=== PATIENT | female | born 1940 | race Caucasian/White ===

== ENCOUNTER 2018-04-24 14:55 | Outpatient (CLI) | payer MEDICARE, OTHER | END 2018-04-24 14:56 | disposition critical access hospital (66) | LOC: EMS 14:55 | PROVIDERS: ATTEND Surgery | DX: M25.552 Pain in left hip (principal); R07.81 Pleurodynia; W01.0XXA Fall on same level from slipping, tripping and stumbling without subsequent striking against object, initial encounter; Y93.01 Activity, walking, marching and hiking; Y92.003 Bedroom of unspecified non-institutional (private) residence as the place of occurrence of the external cause | CPT/HCPCS: A0425; A0429 ==

== ENCOUNTER 2018-04-24 15:12 | Inpatient (IN) | payer MEDICARE, OTHER ==
[2018-04-24] MEDS ORDERED: MORPHINE 2 MG/ML CARPUJECT IVP STA (15:32)
--- NOTE | 2018-04-24 15:33 | ED Physician Documentation ---
PD HPI LOWER EXT INJURY - Stated complaint Stated Complaint: GLF - History obtained from History obtained from: Patient - History of Present Illness PD HPI LOW EXT INJURY LOCATION: Left (78-year-old woman with Paroxysmal atrial fibrillation on Eliquis had a trip and fall while she was leaning over to get her vacuum pipe cleaner robot which had gone under the bed. She landed on her left hip and chest. She is 100% sure she did not hit her head. She is unable to walk or bear weight due to hip pain.) Review of Systems Ten Systems: 10 systems reviewed and negative Constitutional: reports: Reviewed and negative Eyes: reports: Reviewed and negative Ears: reports: Reviewed and negative Nose: reports: Reviewed and negative Throat: reports: Reviewed and negative Cardiac: reports: Reviewed and negative PD PAST MEDICAL HISTORY - Past Medical History Cardiovascular: Hypertension, Atrial fibrillation, Arrhythmia Respiratory: COPD, Emphysema, Shortness of breath Endocrine/Autoimmune: None GI: Hiatal hernia, Diverticulitis, Cholelithiasis : Incontinence HEENT: None Derm: Eczema - Past Surgical History General: Cholecystectomy, Appendectomy, Hiatal hernia repair, 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: Other HEENT: Tonsil/Adenoidectomy Derm: Skin cancer surgery - Allergies Allergies/Adverse Reactions: Allergies Allergy/AdvReac Type Severity Reaction Status Date / Time diltiazem Allergy Unknown Unknown Verified 04/24/18 15:22 - Social History Smoking Status: Current some day smoker Does the pt have substance abuse?: No - Family History Family history: reports: Non contributory PD ED PE NORMAL - Vitals Vital signs reviewed: Yes - General General: Alert and oriented X 3, No acute distress - HEENT HEENT: PERRL, EOMI - Neck Neck: Supple, no meningeal sign, No bony TTP - Cardiac Cardiac: RRR, No murmur - Respiratory Respiratory: No respiratory distress, Clear bilaterally - Abdomen Abdomen: Normal bowel sounds, Soft, Non tender - Back Back: No CVA TTP, No spinal TTP - Extremities Extremities: Other (Mild lateral TTP L hip and severe pain with int rotation) - Neuro Neuro: Alert and oriented X 3, Normal speech - Psych Psych: Normal mood, Normal affect Results - Vitals Vitals: Vital Signs - 24 hr 04/24/18 04/24/18 15:22 19:02 Temperature 37.1 C Heart Rate 82 127 H Respiratory 15 22 Rate Blood Pressure 188/109 H 138/70 H O2 Saturation 94 90 L Oxygen O2 Source Nasal cannula Oxygen Flow Rate 2 - EKG (time done) 1537 Rate: Rate (enter#) (86) Rhythm: NSR [place]: Normal Intervals: Prolonged CA QRS: Normal Ischemia: Normal ST segments Computer interpretation: Agree with computer - Labs Labs: Laboratory Tests 04/24/18 04/24/18 04/24/18 15:55 16:00 16:00 WBC 14.3 H RBC 4.30 Hgb 13.9 Hct 42.2 MCV 98.2 MCH 32.4 H MCHC 33.0 RDW 12.2 Plt Count 282 MPV 6.7 L Neut # (Auto) 12.2 H Lymph # (Auto) 1.1 L [place] # (Auto) 0.7 Eos # (Auto) 0.1 Baso # (Auto) 0.2 H Absolute Nucleated RBC 0.01 Nucleated RBC % 0.1 PT 12.3 INR 1.1 Sodium 133 L Potassium 4.0 Chloride 96 L Carbon Dioxide 29 Anion Gap 8.0 BUN 12 Creatinine 0.6 Estimated GFR (MDRD) 96 Glucose 97 Calcium 9.2 Total Bilirubin 0.5 AST 28 ALT 19 Alkaline Phosphatase 71 Total Protein 7.7 Albumin 4.7 Globulin 3.0 Albumin/Globulin Ratio 1.6 Lipase 26 Blood Type Antibody Screen 04/24/18 16:00 WBC RBC Hgb Hct MCV MCH MCHC RDW Plt Count MPV Neut # (Auto) Lymph # (Auto) [place] # (Auto) Eos # (Auto) Baso # (Auto) Absolute Nucleated RBC Nucleated RBC % PT INR Sodium Potassium Chloride Carbon Dioxide Anion Gap BUN Creatinine Estimated GFR (MDRD) Glucose Calcium Total Bilirubin AST ALT Alkaline Phosphatase Total Protein Albumin Globulin Albumin/Globulin Ratio Lipase Blood Type O NEGATIVE Antibody Screen NEGATIVE - Rads (name of study) L ribs and chest Radiology: EMP read contemporaneously (NAD) L hip XR Radiology: EMP read contemporaneously L Hip CT Radiology: EMP read contemporaneously (Nondisplaced femoral neck fracture) PD MEDICAL DECISION MAKING - ED course ED course: 78-year-old woman status post ground level fall on the left hip clinically with a left hip fracture. Not present on initial x-ray but followed with CT which was confirmatory. Spoke with Dr. Triplett at 6:30 PM who will defer to medicine for admission. They will be delayed to operative fixation given that she is anticoagulated. It is shift change to the hospitalist and I will call them after [address] for admission. Spoke with Dr Watson for admit at 7:27pm Departure - Departure Disposition: 66 [facility] DC/Xfer Clinical Impression: Adequate anticoagulation on anticoagulant therapy Fracture of femoral neck, left Qualifiers: Encounter type: initial encounter Fracture type: closed Qualified Code(s): S72.002A - Fracture of unspecified part of neck of left femur, initial encounter for closed fracture Condition: Good Record reviewed to determine appropriate education?: Yes
[2018-04-24] MEDS ORDERED: ONDANSETRON 4 MG/2 ML VIAL IVP STA (15:44)
[2018-04-24 16:12] LABS: BASOPHILS # (AUTO) 0.2 10^3/uL (0.0-0.1); BASOPHILS % (AUTO) 1.3 %; EOSINOPHILS # (AUTO) 0.1 10^3/uL (0.0-0.7); EOSINOPHILS % (AUTO) 0.9 %; HGB - HEMOGLOBIN 13.9 g/dL (12.0-16.0); LYMPHOCYTES # (AUTO) 1.1 10^3/uL (1.5-3.5); LYMPHOCYTES % (AUTO) 7.6 %; MEAN CORPUSCULAR HEMOGLOBIN 32.4 pg (27.0-31.0); MEAN CORPUSCULAR VOLUME 98.2 fL (81.0-99.0); MEAN PLATELET VOLUME 6.7 fL (7.9-10.8); MONOCYTES # (AUTO) 0.7 10^3/uL (0.0-1.0); MONOCYTES % (AUTO) 4.7 %; NEUTROPHILS # (AUTO) 12.2 10^3/uL (1.5-6.6); NEUTROPHILS % (AUTO) 85.5 %; PLT - PLATELET COUNT 282 10^3/uL (130-450); RED CELL DISTRIBUTION WIDTH 12.2 % (12.0-15.0); WHITE BLOOD COUNT 14.3 x10^3/uL (4.8-10.8)
[2018-04-24 16:18] LABS: INR 1.1 (0.8-1.2); PT - PROTHROMBIN TIME 12.3 secs (9.9-12.6)
[2018-04-24 16:26] LABS: ALBUMIN 4.7 g/dL (3.2-5.5); ALBUMIN/GLOBULIN RATIO 1.6 (1.0-2.2); BILIRUBIN,TOTAL 0.5 mg/dL (0.2-1.0); CALCIUM 9.2 mg/dL (8.5-10.3); CREATININE 0.6 mg/dL (0.4-1.0); TOTAL PROTEIN 7.7 g/dL (6.7-8.2)
--- NOTE | 2018-04-24 17:12 | XRAY Report ---
Reason: fall, hip and rib inj Procedure Date: 04/24/2018 Accession Number: [id number] / [id number] Procedure: XR - Hip w/Pelvis 2-3V LT CPT Code: FULL RESULT: EXAM: LEFT HIP AND PELVIS RADIOGRAPHY EXAM DATE: 04/24/2018 04:58 PM. HISTORY: Fall. Left hip pain. COMPARISONS: None. TECHNIQUE: 1 view of the pelvis and 1 view of the hip. FINDINGS: Bones: No acute fracture is identified. Degenerative spurring. Joints: Normal alignment. Joint space narrowing. Degenerative changes of the lower lumbar spine and right hip joint. No dislocation. Soft Tissues: Vascular calcifications. Surgical sutures project over the lower abdomen. IMPRESSION: 1. No acute osseous abnormalities. If there is a high clinical suspicion then further detail with MRI/CT recommended. 2. Mild degenerative changes of the left hip joint. No dislocation. RADIA
--- NOTE | 2018-04-24 17:15 | XRAY Report ---
Reason: fall, hip and rib inj Procedure Date: 04/24/2018 Accession Number: [id number] / [id number] Procedure: XR - Ribs w/PA Chest LT CPT Code: FULL RESULT: EXAM: LEFT RIB RADIOGRAPHY EXAM DATE: 04/24/2018 04:58 PM. CLINICAL HISTORY: Fall. Left-sided rib pain. COMPARISON: 06/05/2013. TECHNIQUE: 1 view of the chest and 2 views of the ribs. FINDINGS: Bones: No acute fracture or bony lesion. Lungs: No pneumothorax. Lungs are hyperexpanded. No pleural effusions. No consolidation. Interstitium is prominent. Mediastinum: Heart size is normal. Aorta is tortuous. Aortic atherosclerosis. Other: Thoracic scoliosis. Status post cholecystectomy. IMPRESSION: 1. No acute fracture or bony lesion. 2. No pneumothorax. No pleural effusions. RADIA
--- NOTE | 2018-04-24 18:13 | CT Report ---
Reason: hip pain, suspect frx Procedure Date: 04/24/2018 Accession Number: [id number] / [id number] Procedure: CT - Lower Extremity Left W/O CPT Code: FULL RESULT: EXAM: LEFT LOWER EXTREMITY CT WITHOUT CONTRAST EXAM DATE: 04/24/2018 05:37 PM. CLINICAL HISTORY: Hip pain, suspect fracture. COMPARISON: Radiographs 04/24/2018. TECHNIQUE: Thin-section axial images were acquired of the lower extremity from hip to distal femoral diaphysis without contrast. Post-processing: Coronal and sagittal reformats. Other: None. In accordance with CT protocol optimization, one or more of the following dose reduction techniques were utilized for this exam: automated exposure control, adjustment of mA and/or KV based on patient size, or use of iterative reconstructive technique. FINDINGS: Bones: Osteopenia. Mildly impacted nondisplaced fracture extends transversely through the subcapital region of the femoral neck. Mild impaction along the anterior and lateral cortex. No other discrete displaced fracture. Evaluation for nondisplaced fracture is limited on CT. Joints: Minimal degenerative change at the left hip. Small joint effusion. Mild degenerative changes partially visualized at the left sacroiliac joint. Minimal degenerative disk and facet changes partially visualized lower lumbar spine. Musculature: Mild fatty atrophy in the gluteal muscles. Evaluation for muscle edema limited on CT. Other: Mild atherosclerosis in the abdominal aorta and iliac arteries. Multiple descending colon and sigmoid colon diverticula. IMPRESSION: 1. Mildly impacted nondisplaced fracture left femoral neck. 2. Small hip joint effusion. RADIA
[2018-04-24] MEDS ORDERED: ACETAMINOPHEN 325 MG TABLET PO STA (18:46)
[2018-04-24] MEDS ORDERED: ZOLPIDEM 5 MG TABLET PO PRN (20:20)
[2018-04-24] MEDS ORDERED: LABETALOL 100 MG TABLET PO SCH (21:00)
[2018-04-24] MEDS: MORPHINE 2 MG/ML CARPUJECT IVP PRN ×2 (21:02→22:48)
[2018-04-24 22:33] LABS: GLUCOSE, URINE (UA) NEGATIVE (NEGATIVE); KETONES,URINE (UA) TRACE mg/dL (NEGATIVE); LEUKOCYTE ESTERASE, URINE TRACE (NEGATIVE); NITRITE,URINE NEGATIVE (NEGATIVE); OCCULT BLOOD,URINE LARGE (NEGATIVE); PH,URINE 5.5 PH (5.0-7.5); PROTEIN,URINE NEGATIVE (NEGATIVE); UROBILINOGEN,URINE 0.2 (NORMAL) E.U./dL (NORMAL)
[2018-04-24 22:38] LABS: BILIRUBIN,URINE NEGATIVE (NEGATIVE); ICTOTEST,URINE NEGATIVE
[2018-04-24 22:44] LABS: BACTERIA,URINE Rare /HPF (None Seen); RBC,URINE TNTC /HPF (0-5); SQUAMOUS EPITHELIAL CELL,UR RARE Squamous (<= Few); WBC CLUMPS,URINE PRESENT
[2018-04-24 22:45] LABS: CLARITY,URINE CLEAR (CLEAR)
--- NOTE | 2018-04-25 00:16 | HISTORY & PHYSICAL EXAMINATION ---
DATE OF SERVICE: 04/24/2018 Physician: Serenity Watson MD CHIEF COMPLAINT: Fall and hip pain. HISTORY OF PRESENT ILLNESS: Patient is a pleasant 78-year-old white female with past medical history of oxygen-dependent COPD, paroxysmal atrial fibrillation, on Eliquis anticoagulation, and hypertension. 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 Subsequently, she tried to get it out, and while she bent down she lost her balance and fell on her left side. Subsequently, she developed intense left- sided pelvis and hip pain plus left-sided rib pain as well. She had difficulty ambulating. Therefore, she presented to [facility] ER. In the ER, she underwent imaging studies. She was found with mildly displaced left femoral neck fracture on lower extremity CT scan. In addition, she had a chest x-ray, which did not show infiltrate. It showed no rib fracture, either, but on physical exam the patient appeared with left-sided chest wall contusion. Laboratories showed elevated white blood cell count 14.3, normal platelet count, normal hemoglobin, unremarkable coagulation studies, sodium 133, potassium 4, unremarkable renal functions, and normal liver function tests. Vital signs showed temperature of 37.1, heart rate between 80 and 120, blood pressure between 138/70 and 188/109. Oxygen saturation was 85% on room air and 94% on 2 L nasal cannula. Monitor showed regular rhythm. EKG is not yet available. Regarding cardiac history, the patient reports having paroxysmal atrial fibrillation diagnosed a few months ago. She saw a gre instructor in [place] and was told to have an accessory pathway. Ablation was offered, but the patient declined. She does not have history of coronary artery disease, remembers undergoing echocardiogram, and she thinks that she does not have a valve problem or congestive heart failure. The patient offered no angina-like symptoms. She denied chest pain or change in her exercise tolerance. She is always short of breath, having history of COPD, but did not notice recent change in her respiratory status. Did not have lower extremity swelling or any additional change in her usual health. PAST MEDICAL HISTORY 1. Paroxysmal atrial fibrillation, on Eliquis. 2. COPD/oxygen dependent. 3. Hypertension. OUTPATIENT MEDICATIONS: Not yet reconciled. SOCIAL HISTORY: The patient used to smoke cigarettes. She quit 3 years ago. She is functional with instrumental activities of daily living. FAMILY HISTORY: Positive for coronary artery disease, both in the mother and in the father. They in their early 60s due to heart disease. CODE STATUS: FULL CODE. REVIEW OF SYSTEMS: Please see pertinent positives and pertinent negatives listed above at history of present illness. The patient did not offer any additional complaints on the 12-point review. In particular, she denied fever, cough, sputum production, nausea, vomiting, abdominal pain, or dysuria. PHYSICAL EXAMINATION VITAL SIGNS: See listed above at history of present illness. GENERAL: The patient is a well-developed, elderly female who was comfortable, not in distress. CARDIOVASCULAR: S1, S2. Regular tachycardia. I could not hear a pathologic murmur. RESPIRATORY: Good air entry throughout without wheezes or crackles. No increased work of breathing. ABDOMEN: Soft, benign, nontender. Normal bowel tones. LYMPHATIC: Swelling of the left lower extremity. No lymphedema. MUSCULOSKELETAL: Left lower extremity swelling and tenderness consistent with hip fracture. No other injury. SKIN: No jaundice. No rash. NEUROLOGIC: Alert, oriented, nonfocal. PSYCHIATRIC: Cooperative. ASSESSMENT AND PLAN/ACTIVE ISSUES/DIAGNOSES 1. Mechanical fall. 2. Mildly displaced left femoral neck fracture secondary to fall. 3. Left-sided chest wall contusion without rib fracture. 4. Therapeutic anticoagulation, on Eliquis. Will need 24 hours prior to going for surgery until anticoagulant effect wears off/clears. 5. Paroxysmal atrial fibrillation. No history of coronary artery disease. 6. Oxygen-dependent chronic obstructive pulmonary disease. Respiratory status at baseline. 7. Leukocytosis, could be reactive. Chest x-ray showed no pneumonia. Liver function tests are unremarkable. Urinalysis pending. The patient does not have any focal complaint for an infectious cause. 8. Regarding presurgical evaluation and clearance, the patient does not report angina-like symptoms. She is not in decompensated heart failure, does not appear to have acute coronary syndrome, either. Therefore, there is no contraindication to proceed with the surgery. I am awaiting EKG, which I will check, and that might change this assessment, but from what I can see at this point, the patient is clinically stable. The anticoagulation will need to be held during the surgery, and the Eliquis will need to clear from her system prior to proceeding with hip arthroplasty. During the perioperative period, we will recommend a small dose of beta-garima to use for control of hemodynamics to avoid decompensation with atrial fibrillation or to avoid perioperative cardiac ischemia. PLAN AND ORDERS 1. Patient is getting admitted as inpatient. Orthopedic consultation was requested. Patient will be seen by Dr. Triplett. 2. I ordered small dose of labetalol orally. Further rate control or cardiac medication orders will depend on the clinical course. 3. Will hold Eliquis. DVT prophylaxis with RACHEL hose and SCDs. We will recommend restarting anticoagulation following surgery when the postoperative bleeding risk is acceptable, and that will need to be discussed with the surgeon. 4. Regarding COPD, we will continue supplemental oxygen, ordered DuoNebs, and if needed, will step up with inhaled corticosteroid. There is no need for systemic steroid. 5. GI prophylaxis with Protonix. 6. Pain control. 7. FULL CODE. Time spent in the care of this patient was 55 minutes. Attestation: I certify that the reasonable expectation is that the patient remains hospitalized for at least 48 hrs, but gets discharged or transferred to another facility within 96 hrs. TD: 04/24/2018 21:17 LONG
[2018-04-25] MEDS: MORPHINE 2 MG/ML CARPUJECT IVP PRN ×4 (04:11→23:54)
[2018-04-25] MEDS: SODIUM CHLORIDE FLUSH 0.9% 10 ML SYRINGE IVP SCH ×4 (04:11→23:55)
[2018-04-25] MEDS ORDERED: KETOROLAC 15 MG/ML VIAL IM PRN (05:28)
[2018-04-25] MEDS: PANTOPRAZOLE 40 MG TABLET PO SCH (06:15)
[2018-04-25] MEDS: cefTRIAXone 1 GM in SODIUM CHLORIDE 0.9% MINIBAG 100 ML IV SCH (06:15)
[2018-04-25] MEDS: HYDROcod/ACETAM 5/325 MG TABLET PO PRN ×2 (06:28→16:23)
[2018-04-25] MEDS ORDERED: IPRATROPIUM/ALBUTEROL 3 ML NEB INH SCH (07:00)
--- NOTE | 2018-04-25 08:44 | PROVIDER PROGRESS NOTE ---
Objective - Vital Signs/Intake & Output Vital Signs: Vital Signs x48h Temp Pulse Pulse Resp BP BP Pulse Ox 04/25/18 08:07 98 18 04/25/18 08:00 37.5 C 109 H 20 93/47 L 95 04/25/18 06:34 129 H 26 H 93 04/25/18 04:19 38.2 C H 123 H 28 H 168/97 H 95 04/25/18 04:16 132 H 22 89 L Intake & Output: Intake & Output 04/22/18 04/23/18 04/24/18 04/25/18 23:59 23:59 23:59 23:59 Intake Total 500 100 Output Total 400 150 Balance 100 -50 - Lab Results Fish Bones: 04/24/18 15:55 04/24/18 16:00 Other Labs: Lab Results x24hrs 04/24/18 04/24/18 04/24/18 Range/Units Unknown 16:00 16:00 WBC (4.8-10.8) x10^3/uL RBC (4.20-5.40) 10^6/uL Hgb (12.0-16.0) g/dL Hct (37.0-47.0) % MCV (81.0-99.0) fL MCH (27.0-31.0) pg MCHC (32.0-36.0) g/dL RDW (12.0-15.0) % Plt Count (130-450) 10^3/uL MPV (7.9-10.8) fL Neut # (Auto) (1.5-6.6) 10^3/uL Lymph # (Auto) (1.5-3.5) 10^3/uL [place] # (Auto) (0.0-1.0) 10^3/uL Eos # (Auto) (0.0-0.7) 10^3/uL Baso # (Auto) (0.0-0.1) 10^3/uL Absolute Nucleated RBC x10^3/uL Nucleated RBC % /100WBC PT (9.9-12.6) secs INR (0.8-1.2) Sodium 133 L (135-145) mmol/L Potassium 4.0 (3.5-5.0) mmol/L Chloride 96 L (101-111) mmol/L Carbon Dioxide 29 (21-32) mmol/L Anion Gap 8.0 (6-13) BUN 12 (6-20) mg/dL Creatinine 0.6 (0.4-1.0) mg/dL Estimated GFR (MDRD) 96 (>89) Glucose 97 (70-100) mg/dL Calcium 9.2 (8.5-10.3) mg/dL Total Bilirubin 0.5 (0.2-1.0) mg/dL AST 28 (10-42) IU/L ALT 19 (10-60) IU/L Alkaline Phosphatase 71 (42-121) IU/L Total Protein 7.7 (6.7-8.2) g/dL Albumin 4.7 (3.2-5.5) g/dL Globulin 3.0 (2.1-4.2) g/dL Albumin/Globulin Ratio 1.6 (1.0-2.2) Lipase 26 (22-51) U/L Urine Color YELLOW Urine Clarity CLEAR (CLEAR) Urine pH 5.5 (5.0-7.5) PH Ur Specific [place] >=1.030 H (1.002-1.030) Urine Protein NEGATIVE (NEGATIVE) mg/dL Urine Glucose (UA) NEGATIVE (NEGATIVE) mg/dL Urine Ketones TRACE (NEGATIVE) mg/dL Urine Occult Blood LARGE H (NEGATIVE) Urine Nitrite NEGATIVE (NEGATIVE) Urine Bilirubin NEGATIVE (NEGATIVE) Urine Urobilinogen 0.2 (NORMAL) (NORMAL) E.U./dL Ur Leukocyte Esterase TRACE H (NEGATIVE) Urine RBC TNTC H (0-5) /HPF Urine WBC 6-10 H (0-5) /HPF Urine WBC Clumps PRESENT Ur Squamous Epith Cells RARE Squamous (<= Few) Urine Bacteria Rare (None Seen) /HPF Urine Culture Comments INDICATED Blood Type O NEGATIVE Antibody Screen NEGATIVE 04/24/18 04/24/18 Range/Units 16:00 15:55 WBC 14.3 H (4.8-10.8) x10^3/uL RBC 4.30 (4.20-5.40) 10^6/uL Hgb 13.9 (12.0-16.0) g/dL Hct 42.2 (37.0-47.0) % MCV 98.2 (81.0-99.0) fL MCH 32.4 H (27.0-31.0) pg MCHC 33.0 (32.0-36.0) g/dL RDW 12.2 (12.0-15.0) % Plt Count 282 (130-450) 10^3/uL MPV 6.7 L (7.9-10.8) fL Neut # (Auto) 12.2 H (1.5-6.6) 10^3/uL Lymph # (Auto) 1.1 L (1.5-3.5) 10^3/uL [place] # (Auto) 0.7 (0.0-1.0) 10^3/uL Eos # (Auto) 0.1 (0.0-0.7) 10^3/uL Baso # (Auto) 0.2 H (0.0-0.1) 10^3/uL Absolute Nucleated RBC 0.01 x10^3/uL Nucleated RBC % 0.1 /100WBC PT 12.3 (9.9-12.6) secs INR 1.1 (0.8-1.2) Sodium (135-145) mmol/L Potassium (3.5-5.0) mmol/L Chloride (101-111) mmol/L Carbon Dioxide (21-32) mmol/L Anion Gap (6-13) BUN (6-20) mg/dL Creatinine (0.4-1.0) mg/dL Estimated GFR (MDRD) (>89) Glucose (70-100) mg/dL Calcium (8.5-10.3) mg/dL Total Bilirubin (0.2-1.0) mg/dL AST (10-42) IU/L ALT (10-60) IU/L Alkaline Phosphatase (42-121) IU/L Total Protein (6.7-8.2) g/dL Albumin (3.2-5.5) g/dL Globulin (2.1-4.2) g/dL Albumin/Globulin Ratio (1.0-2.2) Lipase (22-51) U/L Urine Color Urine Clarity (CLEAR) Urine pH (5.0-7.5) PH Ur Specific [place] (1.002-1.030) Urine Protein (NEGATIVE) mg/dL Urine Glucose (UA) (NEGATIVE) mg/dL Urine Ketones (NEGATIVE) mg/dL Urine Occult Blood (NEGATIVE) Urine Nitrite (NEGATIVE) Urine Bilirubin (NEGATIVE) Urine Urobilinogen (NORMAL) E.U./dL Ur Leukocyte Esterase (NEGATIVE) Urine RBC (0-5) /HPF Urine WBC (0-5) /HPF Urine WBC Clumps Ur Squamous Epith Cells (<= Few) Urine Bacteria (None Seen) /HPF Urine Culture Comments Blood Type Antibody Screen Assessment/Plan - Problem List (1) Fracture of femoral neck, left Impression: Consult received. Patient will be seen and examined this AM. Will hold surgery secondary to eliquis. Likely mini open hip pinning tomorrow pending eval and med status. Qualifiers: Encounter type: initial encounter Fracture type: closed Qualified Code(s): S72.002A - Fracture of unspecified part of neck of left femur, initial encounter for closed fracture
--- NOTE | 2018-04-25 08:58 | PROVIDER PROGRESS NOTE ---
Subjective - Prog Note Date Prog Note Date: 04/25/18 Prog Note Time: 08:58 - Subjective Pt reports feeling: No change Subjective: Liz states that her pain is somewhat controlled and becomes easily nauseated. She denies a new cough, increased shortness of breath, a new rash, or chest pain or pressure. She has several family members visiting. I have given her an informational card summarizing her stay and explained the course of events and her medication change based on her preliminary echo. Current Medications - Current Medications Current Medications: Active Medications Acetaminophen (Tylenol) 650 mg PO Q4HR PRN PRN Reason: Pain 1 to 4 Hydrocodone Bitart/Acetaminophen ([place] 5/325) 1 tab PO Q4HR PRN PRN Reason: Pain 5 to 7 Last Admin: 04/25/18 06:28 Dose: 1 tab Albuterol () 2.5 mg INH RTQ4H PRN PRN Reason: Wheezing Budesonide (Pulmicort) 0.5 mg INH RTBID [facility] Formoterol Fumarate (Perforomist) 20 mcg INH RTBID [facility] Ceftriaxone Sodium 1 gm/ (Sodium Chloride) 100 mls @ 200 mls/hr IV DAILY@0600 [facility] Last Infusion: 04/25/18 07:11 Dose: Infused Sodium Chloride (Normal Saline 0.9%) 1,000 mls @ 83.333 mls/hr IV .Q12H [facility] Last Admin: 04/25/18 10:29 Dose: 83.333 mls/hr Magnesium Sulfate (Magnesium Sulfate) 2 gm in 50 mls @ 50 mls/hr IV ONCE ONE Stop: 04/25/18 14:56 Ketorolac Tromethamine (Toradol Inj (15mg)) 15 mg IM Q6HR PRN PRN Reason: Mild Pain Stop: 04/30/18 05:37 Metoprolol Succinate (Toprol Xl) 25 mg PO BID [facility] Morphine Sulfate (Morphine (Carpuject)) 2 mg IVP Q2HR PRN PRN Reason: Pain 8 to 10 Last Admin: 04/25/18 10:49 Dose: 2 mg Ondansetron HCl (Zofran Inj) 4 mg IVP Q6HR PRN PRN Reason: Nausea / Vomiting Last Admin: 04/25/18 10:49 Dose: 4 mg Pantoprazole Sodium (Protonix) 40 mg PO QDAC [facility] Last Admin: 04/25/18 06:15 Dose: 40 mg Polyethylene Glycol (Miralax) 17 gm PO DAILY [facility] Last Admin: 04/25/18 10:29 Dose: Not Given Sodium Chloride (Normal Saline Flush 0.9%) 10 ml IVP PRN PRN PRN Reason: NEEDED PER PROVIDER ORDERS Sodium Chloride (Normal Saline Flush 0.9%) 10 ml IVP 0100,0900,1700 [facility] Last Admin: 04/25/18 06:14 Dose: 10 ml Zolpidem Tartrate (Ambien) 5 mg PO QPM PRN PRN Reason: Insomnia Albuterol Sulfate [Proair Hfa Inhaler] 2 puffs INH Q4H PRN 04/25/18 Apixaban [Eliquis] 2.5 mg PO BID 04/25/18 Fluticasone/Salmeterol [Advair 250-50 Diskus] 1 puffs INH BID 04/25/18 Lisinopril 20 mg PO DAILY 04/25/18 Metoprolol Tartrate [Lopressor] 50 mg PO BID 04/25/18 Objective - Vital Signs/Intake & Output Reviewed Vital Signs: Yes Vital Signs: Vital Signs x48h Temp Pulse Pulse Resp BP BP Pulse Ox 04/25/18 08:07 98 18 04/25/18 08:00 37.5 C 109 H 20 93/47 L 95 04/25/18 06:34 129 H 26 H 93 04/25/18 04:19 38.2 C H 123 H 28 H 168/97 H 95 04/25/18 04:16 132 H 22 89 L Intake & Output: Intake & Output 04/22/18 04/23/18 04/24/18 04/25/18 23:59 23:59 23:59 23:59 Intake Total 500 100 Output Total 400 150 Balance 100 -50 - Objective General Appearance: positive: Alert, Mild distress Eyes Bilateral: positive: PERRL Eyes: OU Conjunctivae pale ENT: positive: Pharynx nml, No signs of dehydration Neck: positive: Thyroid nml, No JVD, Trachea midline Respiratory: positive: Chest non-tender, No respiratory distress, Other (diminished) Cardiovascular: positive: No gallop, Irregularly irregular, Tachycardia, Systolic murmur, Decreased pulse(s) Peripheral Pulses: 1+ Radial (R), 1+ Radial (L) Abdomen: positive: Non-tender, No distention, Other (rounded, soft) Back: positive: Nml inspection Skin: positive: No rash, Warm, Dry Extremities: positive: Non-tender, Full ROM, Pedal edema Neurologic/Psychiatric: positive: Oriented x3, CN's nml (2-12), Motor nml, Sensation nml, Weakness, Depressed mood/affect Reflexes: Bicep (R): 3+, Bicep (L): 3+ - Lab Results Fish Bones: 04/25/18 11:10 04/25/18 11:10 Other Labs: Lab Results x24hrs 04/24/18 04/24/18 04/24/18 Range/Units Unknown 16:00 16:00 WBC (4.8-10.8) x10^3/uL RBC (4.20-5.40) 10^6/uL Hgb (12.0-16.0) g/dL Hct (37.0-47.0) % MCV (81.0-99.0) fL MCH (27.0-31.0) pg MCHC (32.0-36.0) g/dL RDW (12.0-15.0) % Plt Count (130-450) 10^3/uL MPV (7.9-10.8) fL Neut # (Auto) (1.5-6.6) 10^3/uL Lymph # (Auto) (1.5-3.5) 10^3/uL [place] # (Auto) (0.0-1.0) 10^3/uL Eos # (Auto) (0.0-0.7) 10^3/uL Baso # (Auto) (0.0-0.1) 10^3/uL Absolute Nucleated RBC x10^3/uL Nucleated RBC % /100WBC PT (9.9-12.6) secs INR (0.8-1.2) Sodium 133 L (135-145) mmol/L Potassium 4.0 (3.5-5.0) mmol/L Chloride 96 L (101-111) mmol/L Carbon Dioxide 29 (21-32) mmol/L Anion Gap 8.0 (6-13) BUN 12 (6-20) mg/dL Creatinine 0.6 (0.4-1.0) mg/dL Estimated GFR (MDRD) 96 (>89) Glucose 97 (70-100) mg/dL Calcium 9.2 (8.5-10.3) mg/dL Total Bilirubin 0.5 (0.2-1.0) mg/dL AST 28 (10-42) IU/L ALT 19 (10-60) IU/L Alkaline Phosphatase 71 (42-121) IU/L Total Protein 7.7 (6.7-8.2) g/dL Albumin 4.7 (3.2-5.5) g/dL Globulin 3.0 (2.1-4.2) g/dL Albumin/Globulin Ratio 1.6 (1.0-2.2) Lipase 26 (22-51) U/L Urine Color YELLOW Urine Clarity CLEAR (CLEAR) Urine pH 5.5 (5.0-7.5) PH Ur Specific [place] >=1.030 H (1.002-1.030) Urine Protein NEGATIVE (NEGATIVE) mg/dL Urine Glucose (UA) NEGATIVE (NEGATIVE) mg/dL Urine Ketones TRACE (NEGATIVE) mg/dL Urine Occult Blood LARGE H (NEGATIVE) Urine Nitrite NEGATIVE (NEGATIVE) Urine Bilirubin NEGATIVE (NEGATIVE) Urine Urobilinogen 0.2 (NORMAL) (NORMAL) E.U./dL Ur Leukocyte Esterase TRACE H (NEGATIVE) Urine RBC TNTC H (0-5) /HPF Urine WBC 6-10 H (0-5) /HPF Urine WBC Clumps PRESENT Ur Squamous Epith Cells RARE Squamous (<= Few) Urine Bacteria Rare (None Seen) /HPF Urine Culture Comments INDICATED Blood Type O NEGATIVE Antibody Screen NEGATIVE 04/24/18 04/24/18 Range/Units 16:00 15:55 WBC 14.3 H (4.8-10.8) x10^3/uL RBC 4.30 (4.20-5.40) 10^6/uL Hgb 13.9 (12.0-16.0) g/dL Hct 42.2 (37.0-47.0) % MCV 98.2 (81.0-99.0) fL MCH 32.4 H (27.0-31.0) pg MCHC 33.0 (32.0-36.0) g/dL RDW 12.2 (12.0-15.0) % Plt Count 282 (130-450) 10^3/uL MPV 6.7 L (7.9-10.8) fL Neut # (Auto) 12.2 H (1.5-6.6) 10^3/uL Lymph # (Auto) 1.1 L (1.5-3.5) 10^3/uL [place] # (Auto) 0.7 (0.0-1.0) 10^3/uL Eos # (Auto) 0.1 (0.0-0.7) 10^3/uL Baso # (Auto) 0.2 H (0.0-0.1) 10^3/uL Absolute Nucleated RBC 0.01 x10^3/uL Nucleated RBC % 0.1 /100WBC PT 12.3 (9.9-12.6) secs INR 1.1 (0.8-1.2) Sodium (135-145) mmol/L Potassium (3.5-5.0) mmol/L Chloride (101-111) mmol/L Carbon Dioxide (21-32) mmol/L Anion Gap (6-13) BUN (6-20) mg/dL Creatinine (0.4-1.0) mg/dL Estimated GFR (MDRD) (>89) Glucose (70-100) mg/dL Calcium (8.5-10.3) mg/dL Total Bilirubin (0.2-1.0) mg/dL AST (10-42) IU/L ALT (10-60) IU/L Alkaline Phosphatase (42-121) IU/L Total Protein (6.7-8.2) g/dL Albumin (3.2-5.5) g/dL Globulin (2.1-4.2) g/dL Albumin/Globulin Ratio (1.0-2.2) Lipase (22-51) U/L Urine Color Urine Clarity (CLEAR) Urine pH (5.0-7.5) PH Ur Specific [place] (1.002-1.030) Urine Protein (NEGATIVE) mg/dL Urine Glucose (UA) (NEGATIVE) mg/dL Urine Ketones (NEGATIVE) mg/dL Urine Occult Blood (NEGATIVE) Urine Nitrite (NEGATIVE) Urine Bilirubin (NEGATIVE) Urine Urobilinogen (NORMAL) E.U./dL Ur Leukocyte Esterase (NEGATIVE) Urine RBC (0-5) /HPF Urine WBC (0-5) /HPF Urine WBC Clumps Ur Squamous Epith Cells (<= Few) Urine Bacteria (None Seen) /HPF Urine Culture Comments Blood Type Antibody Screen ABX Reporting Has patient been on IV antibiotics over the past 48 hours?: Yes Sepsis Event Note (H) - Evaluation Current Stage of Sepsis: Ruled out Assessment/Plan - Problem List (1) Fracture of femoral neck, left Impression: The patient and her family state that they have an [employer] vacuum housecleaner floor at home that became stuck under the bed and as she was trying to reach it, she fell on her left side which caused her left femoral neck fracture. Plan: Surgery as early as tomorrow by Dr. Triplett, continue to control pain and other symptoms. Qualifiers: Encounter type: initial encounter Fracture type: closed Qualified Code(s): S72.002A - Fracture of unspecified part of neck of left femur, initial encounter for closed fracture (2) Fall Impression: The patient state that this is her first time ever falling and has been sarahi enough to never have broken any bones. She fell this time and fractured her left femoral neck and will undergo a left hip repair possibly as soon as tomorrow. Plan: Continue to prepare for surgery, fall precautions. Qualifiers: Encounter type: initial encounter Qualified Code(s): W19.XXXA - Unspecified fall, initial encounter (3) UTI (urinary tract infection) Impression: The patient had a WBC count of 14.3 and was started on Rocephin, which continues today. She has blackman in preparation for surgery and gentle IV fluids. She admits to feeling a little off for the past few days and has new urinary incontinence. A UA was sent that is suspicious for an acute UTI with cultures pending. Plan: Continue IV rocephin and await final cultures. Qualifiers: Urinary tract infection type: acute cystitis Hematuria presence: without hematuria Qualified Code(s): N30.00 - Acute cystitis without hematuria (4) Nausea Impression: The patient has been nauseated today and states she thinks it could be from her injury. Plan: continue to control with meds. (5) Paroxysmal atrial fibrillation Impression: The patient was on metoprolol tartrate at home, that as been appropriately changed to metoprolol succinate and sent the pharmacy. She had been on her Eliquis prior to this event, that has been on hold. As per UpToDate: guidelines for Apixaban (Eliquis) are; 8 to 15 hours; five half-lives will have elapsed by day 1.5 to 3 after the last dose. The patient had her last dose yesterday 04/24/18. Plan: Continue tele, obtain an echo, and HOLD blood thinner until after surgery. (6) Pulmonary hypertension, moderate to severe Impression: Preliminary echo results show very elevated right heart pressures with an RVSP at rest of 65 mmHg. She has an elevated EF of >75%, that his hyperdynamic, so she needs to have her heart rate controlled at all times with a target range be tween 65-80. A new prescription for metoprolol succinate was sent to her pharmacy intended to be started upon discharge. She unfortunately has been uncontrolled today with heart rates from 90-115. Plan: Continue metoprolol succinate, monitor vital signs, and monitor during post-op.
[2018-04-25] MEDS ORDERED: METOPROLOL TARTRATE 50 MG TABLET PO SCH (09:00)
[2018-04-25] MEDS: POLYETHYLENE GLYCOL 3350 17 GM PACKET PO SCH (10:29)
[2018-04-25] MEDS: SODIUM CHLORIDE 0.9% 1,000 ML IV SCH ×2 (10:29→22:32)
[2018-04-25] MEDS: ONDANSETRON 4 MG/2 ML VIAL IVP PRN ×3 (10:49→23:54)
[2018-04-25 11:16] LABS: BASOPHILS % (AUTO) 0.4 %; EOSINOPHILS # (AUTO) 0.1 10^3/uL (0.0-0.7); EOSINOPHILS % (AUTO) 1.1 %; HGB - HEMOGLOBIN 12.9 g/dL (12.0-16.0); LYMPHOCYTES # (AUTO) 0.5 10^3/uL (1.5-3.5); LYMPHOCYTES % (AUTO) 5.2 %; MEAN CORPUSCULAR HGB CONC 34.7 g/dL (32.0-36.0); MEAN CORPUSCULAR VOLUME 98.1 fL (81.0-99.0); MEAN PLATELET VOLUME 6.5 fL (7.9-10.8); MONOCYTES # (AUTO) 0.9 10^3/uL (0.0-1.0); MONOCYTES % (AUTO) 8.9 %; NEUTROPHILS # (AUTO) 8.8 10^3/uL (1.5-6.6); NEUTROPHILS % (AUTO) 84.4 %; PLT - PLATELET COUNT 222 10^3/uL (130-450); RED CELL DISTRIBUTION WIDTH 12.1 % (12.0-15.0); WHITE BLOOD COUNT 10.4 x10^3/uL (4.8-10.8)
[2018-04-25 11:45] LABS: ALBUMIN 3.7 g/dL (3.2-5.5); ALBUMIN/GLOBULIN RATIO 1.3 (1.0-2.2); BILIRUBIN,TOTAL 0.7 mg/dL (0.2-1.0); CALCIUM 8.4 mg/dL (8.5-10.3); CREATININE 0.7 mg/dL (0.4-1.0); MAGNESIUM 1.8 mg/dL (1.7-2.8); PHOSPHORUS 2.9 mg/dL (2.5-4.6); TOTAL PROTEIN 6.5 g/dL (6.7-8.2)
[2018-04-25 11:56] LABS: HB2 TOTAL 13.6 g/dL; HEMOGLOBIN A1C 0.48 g/dL; HEMOGLOBIN A1C % 5.4 % (4.6-6.2)
[2018-04-25] MEDS ORDERED: MAGNESIUM SULFATE 2 GRAM 2 GM/50 ML BAG IV ONE (13:57)
[2018-04-25] MEDS ORDERED: METOPROLOL SUCCINATE 25 MG TABLET PO SCH (14:00)
--- NOTE | 2018-04-25 17:23 | CONSULTATION NOTE ---
Referring Provider Name of Referring Provider:: Patti Combs M.D. Consult Date: 04/25/18 Chief Complaint - Chief Complaint Chief Complaint: Asked to evaluate patient for left hip fracture History of Present Illness - History of Present Illness HPI Comment/Other: Liz is an 78-year-old female in her usual state of health until 04/24/2018 when she fell in her room. She injured her left hip. She was brought in through the emergency department and found to have a left hip fracture. Orthopedics was consulted by Dr. Combs. Patient denies any significant cardiovascular or neurovascular type symptoms preceding or after the fall and notes left hip region pain and difficulty ambulating. She notes that she is normally functional and denies using assistive device on a regular basis per History - Past Medical History Cardiovascular: reports: Hypertension, Atrial fibrillation, Arrhythmia Respiratory: reports: COPD, Emphysema, Shortness of breath Endocrine/Autoimmune: reports: None GI: reports: Hiatal hernia, Diverticulitis, Cholelithiasis : reports: Incontinence HEENT: reports: None Psych: reports: None Musculoskeletal: reports: None Derm: reports: Eczema MRSA Hx?: No - Past Surgical History General: reports: Cholecystectomy, Appendectomy, Hiatal hernia repair, Colonoscopy /[employer] AIDE: reports: Other HEENT: reports: Tonsil/Adenoidectomy Derm: reports: Skin cancer surgery Meds/Allgy - Home Medications Home Medications: Ambulatory Orders Medication Instructions Recorded Confirmed Albuterol Sulfate [Proair Hfa 2 puffs INH Q4H PRN 04/25/18 04/25/18 Inhaler] Apixaban [Eliquis] 2.5 mg PO BID 04/25/18 04/25/18 Fluticasone/Salmeterol [Advair 1 puffs INH BID 04/25/18 04/25/18 250-50 Diskus] Lisinopril 20 mg PO DAILY 04/25/18 04/25/18 Metoprolol Succinate 50 mg PO BID #60 tab.er.24h 04/25/18 - Allergies Allergies/Adverse Reactions: Allergies Allergy/AdvReac Type Severity Reaction Status Date / Time diltiazem Allergy Unknown Unknown Verified 04/24/18 15:22 Exam - Vital Signs Vital Signs: Vital Signs x48h Temp Pulse Pulse Resp BP Pulse Ox 04/25/18 15:40 37.3 C 95 24 106/55 L 97 04/25/18 12:46 37.6 C H 102 H 20 123/69 93 04/25/18 11:38 37.5 C 98 18 95 04/25/18 10:28 147/66 H - Physical Exam Comments/Other: Patient is a well-developed 78-year-old female in mild distress. She is cooperative with the examination. Patient's left lower extremity has palpable dorsalis pedis. She easily flexes and extends her ankle. She is able to initiate flexion extension at the knee but is guarded reporting some hip region pain with that. She denies pain with gentle logrolling. Thigh calf soft nontender. No tenderness about the foot ankle and knee. Hip girdle skin intact. Conclusion/Plan - Lab Results Fish Bones: 04/25/18 11:10 04/25/18 11:10 - Diagnostic Imaging Results Diagnostic Imaging Results Comments: Patient had hip films including x-rays and CT scan showing a minimally displaced left subcapital femoral neck fracture. - Other Other Results/Comments: Liz is an 78-year-old female with a left subcapital femoral neck fracture non- /minimally displaced. She is on Eliquis for atrial fibrillation. Discussed with the patient the patient's son and operative and nonoperative treatment options and the risks benefits alternatives of each. I recommended mini open hip pinning and discussed the rationale for that with them we also discussed potential other options. Given her anticoagulation state I would recommend holding off on surgery today but feel that it is reasonable to consider a minimally invasive surgery tomorrow. I discussed the case with Dr. Loza who has graciously agreed to consider surgery for the patient tomorrow pending evaluation and discussion with the p atient and family. In the meantime, Recommend incentive spirometer every hour while awake. Recomme nd bilateral calf SCD boots. Recommend continued medical management and analgesia as needed. NPO past midnight.
[2018-04-25] MEDS: KETOROLAC 15 MG/ML VIAL IM PRN (19:44)
[2018-04-25] MEDS: BUDESONIDE 0.5 MG/2 ML NEB INH SCH (20:05)
[2018-04-25] MEDS: FORMOTEROL FUMARATE NEB 20 MCG/2 ML INH SCH (20:05)
[2018-04-25] MEDS: METOPROLOL SUCCINATE 25 MG TABLET PO SCH (21:01)
[2018-04-26 06:06] LABS: BASOPHILS # (AUTO) 0.1 10^3/uL (0.0-0.1); BASOPHILS % (AUTO) 0.6 %; EOSINOPHILS # (AUTO) 0.1 10^3/uL (0.0-0.7); EOSINOPHILS % (AUTO) 1.5 %; HGB - HEMOGLOBIN 11.7 g/dL (12.0-16.0); LYMPHOCYTES # (AUTO) 0.5 10^3/uL (1.5-3.5); LYMPHOCYTES % (AUTO) 5.7 %; MEAN CORPUSCULAR HEMOGLOBIN 33.4 pg (27.0-31.0); MEAN CORPUSCULAR HGB CONC 33.5 g/dL (32.0-36.0); MEAN CORPUSCULAR VOLUME 99.5 fL (81.0-99.0); MEAN PLATELET VOLUME 6.8 fL (7.9-10.8); MONOCYTES # (AUTO) 0.7 10^3/uL (0.0-1.0); MONOCYTES % (AUTO) 7.9 %; NEUTROPHILS % (AUTO) 84.3 %; PLT - PLATELET COUNT 212 10^3/uL (130-450); RED CELL DISTRIBUTION WIDTH 12.2 % (12.0-15.0); WHITE BLOOD COUNT 9.5 x10^3/uL (4.8-10.8)
[2018-04-26 06:18] LABS: ALBUMIN 3.4 g/dL (3.2-5.5); BILIRUBIN,TOTAL 0.5 mg/dL (0.2-1.0); CALCIUM 7.9 mg/dL (8.5-10.3); CREATININE 0.5 mg/dL (0.4-1.0); MAGNESIUM 2.4 mg/dL (1.7-2.8); PHOSPHORUS 2.5 mg/dL (2.5-4.6); TOTAL PROTEIN 6.1 g/dL (6.7-8.2)
[2018-04-26 06:19] LABS: ALBUMIN/GLOBULIN RATIO 1.3 (1.0-2.2)
[2018-04-26] MEDS: cefTRIAXone 1 GM in SODIUM CHLORIDE 0.9% MINIBAG 100 ML IV SCH (06:31)
[2018-04-26] MEDS: PANTOPRAZOLE 40 MG TABLET PO SCH (06:31)
[2018-04-26] MEDS: SODIUM CHLORIDE FLUSH 0.9% 10 ML SYRINGE IVP SCH ×2 (07:53→17:04)
[2018-04-26] MEDS: METOPROLOL SUCCINATE 25 MG TABLET PO SCH ×3 (08:58→17:37)
[2018-04-26] MEDS: POLYETHYLENE GLYCOL 3350 17 GM PACKET PO SCH (08:59)
[2018-04-26] MEDS: SODIUM CHLORIDE FLUSH 0.9% 10 ML SYRINGE IVP PRN (09:04)
[2018-04-26] MEDS: ONDANSETRON 4 MG/2 ML VIAL IVP PRN (09:04)
[2018-04-26] MEDS: MORPHINE 2 MG/ML CARPUJECT IVP PRN (09:04)
[2018-04-26] MEDS: FORMOTEROL FUMARATE NEB 20 MCG/2 ML INH SCH ×2 (09:40→20:55)
[2018-04-26] MEDS: ALBUTEROL NEB 2.5 MG/3 ML INH PRN ×3 (09:40→21:41)
[2018-04-26] MEDS: BUDESONIDE 0.5 MG/2 ML NEB INH SCH ×2 (09:40→20:55)
--- NOTE | 2018-04-26 10:24 | ANESTHESIA ---
Pre-Anesthesia VS, & Labs - Diagnosis left femoral neck fracture - Procedure left hip pinning, mini open pinning Vital Signs: Temp Pulse Resp BP Pulse Ox 37.4 C 95 20 131/68 H 98 04/26/18 08:07 04/26/18 09:59 04/26/18 09:59 04/26/18 08:07 04/26/18 08:07 Height 5 ft 7 in Weight (kg) 56 kg Body Mass Index 19.3 - NPO >8 hours - Is Patient ?: Not Applicable - Lab Results Current Lab Results: Laboratory Tests 04/26/18 05:57: Lactic Acid 0.7 04/26/18 05:57: Sodium 127 L, Potassium 4.6, Chloride 94 L, Carbon Dioxide 30, Anion Gap 3.0 L, BUN 16, Creatinine 0.5, Estimated GFR (MDRD) 119, Glucose 116 H , Calcium 7.9 L, Phosphorus 2.5, Magnesium 2.4, Total Bilirubin 0.5, AST 49 H, ALT 65 H, Alkaline Phosphatase 75, Total Protein 6.1 L, Albumin 3.4, Globulin 2.7, Albumin/Globulin Ratio 1.3 04/26/18 05:57: WBC 9.5, RBC 3.50 L, Hgb 11.7 L, Hct 34.9 L, MCV 99.5 H, MCH 33.4 H, MCHC 33.5, RDW 12.2, Plt Count 212, MPV 6.8 L, Neut # (Auto) 8.0 H, Lymph # (Auto) 0.5 L, [place] # (Auto) 0.7, Eos # (Auto) 0.1, Baso # (Auto) 0.1, Absolute Nucleated RBC 0.00, Nucleated RBC % 0.0 04/25/18 11:10: Glycated Hemoglobin 5.4, Estim Average Glucose 108 H 04/25/18 11:10: TSH 0.81 04/25/18 11:10: Lactic Acid 1.5 04/25/18 11:10: Sodium 129 L, Potassium 4.4, Chloride 93 L, Carbon Dioxide 30, Anion Gap 6.0, BUN 12, Creatinine 0.7, Estimated GFR (MDRD) 81 L, Glucose 123 H, Calcium 8.4 L, Phosphorus 2.9, Magnesium 1.8, Total Bilirubin 0.7, AST 94 H, ALT 100 H, Alkaline Phosphatase 81, Total Protein 6.5 L, Albumin 3.7, Globulin 2.8, Albumin/Globulin Ratio 1.3 04/25/18 11:10: WBC 10.4, RBC 3.80 L, Hgb 12.9, Hct 37.3, MCV 98.1, MCH 34.0 H, MCHC 34.7, RDW 12.1, Plt Count 222, MPV 6.5 L, Neut # (Auto) 8.8 H, Lymph # (Auto) 0.5 L, [place] # (Auto) 0.9, Eos # (Auto) 0.1, Baso # (Auto) 0.0, Absolute Nucleated RBC 0.00, Nucleated RBC % 0.0 04/24/18 16:00: Blood Type O NEGATIVE, Antibody Screen NEGATIVE 04/24/18 16:00: Sodium 133 L, Potassium 4.0, Chloride 96 L, Carbon Dioxide 29, Anion Gap 8.0, BUN 12, Creatinine 0.6, Estimated GFR (MDRD) 96, Glucose 97, Calcium 9.2, Total Bilirubin 0.5, AST 28, ALT 19, Alkaline Phosphatase 71, Total Protein 7.7, Albumin 4.7, Globulin 3.0, Albumin/Globulin Ratio 1.6, Lipase 26 04/24/18 16:00: PT 12.3, INR 1.1 04/24/18 15:55: WBC 14.3 H, RBC 4.30, Hgb 13.9, Hct 42.2, MCV 98.2, MCH 32.4 H, MCHC 33.0, RDW 12.2, Plt Count 282, MPV 6.7 L, Neut # (Auto) 12.2 H, Lymph # (Auto) 1.1 L, [place] # (Auto) 0.7, Eos # (Auto) 0.1, Baso # (Auto) 0.2 H, Absolute Nucleated RBC 0.01, Nucleated RBC % 0.1 Lab results reviewed: Yes Fish Bones: 04/26/18 05:57 04/26/18 05:57 Home Medications and Allergies Home Medications: Ambulatory Orders Albuterol Sulfate [Proair Hfa Inhaler] 2 puffs INH Q4H PRN 04/25/18 Apixaban [Eliquis] 2.5 mg PO BID 04/25/18 Fluticasone/Salmeterol [Advair 250-50 Diskus] 1 puffs INH BID 04/25/18 Lisinopril 20 mg PO DAILY 04/25/18 Active Medications Acetaminophen (Tylenol) 650 mg PO Q4HR PRN PRN Reason: Pain 1 to 4 Hydrocodone Bitart/Acetaminophen ([place] 5/325) 1 tab PO Q4HR PRN PRN Reason: Pain 5 to 7 Last Admin: 04/25/18 16:23 Dose: 1 tab Albuterol () 2.5 mg INH RTQ4H PRN PRN Reason: Wheezing Last Admin: 04/26/18 09:55 Dose: 2.5 mg Budesonide (Pulmicort) 0.5 mg INH RTBID [facility] Last Admin: 04/26/18 09:40 Dose: 0.5 mg Formoterol Fumarate (Perforomist) 20 mcg INH RTBID [facility] Last Admin: 04/26/18 09:40 Dose: 20 mcg Ceftriaxone Sodium 1 gm/ (Sodium Chloride) 100 mls @ 200 mls/hr IV DAILY@0600 [facility] Last Infusion: 04/26/18 07:49 Dose: Infused Sodium Chloride (Normal Saline 0.9%) 1,000 mls @ 83.333 mls/hr IV .Q12H [facility] Last Admin: 04/25/18 22:32 Dose: 83.333 mls/hr Ketorolac Tromethamine (Toradol Inj (15mg)) 15 mg IM Q6HR PRN PRN Reason: Mild Pain Stop: 04/30/18 05:37 Last Admin: 04/25/18 19:44 Dose: 15 mg Metoprolol Succinate (Toprol Xl) 50 mg PO BIDWM [facility] Last Admin: 04/26/18 08:58 Dose: 50 mg Morphine Sulfate (Morphine (Carpuject)) 2 mg IVP Q2HR PRN PRN Reason: Pain 8 to 10 Last Admin: 04/26/18 09:04 Dose: 2 mg Ondansetron HCl (Zofran Inj) 4 mg IVP Q6HR PRN PRN Reason: Nausea / Vomiting Last Admin: 04/26/18 09:04 Dose: 4 mg Pantoprazole Sodium (Protonix) 40 mg PO QDAC [facility] Last Admin: 04/26/18 06:31 Dose: 40 mg Polyethylene Glycol (Miralax) 17 gm PO DAILY [facility] Last Admin: 04/26/18 08:59 Dose: Not Given Sodium Chloride (Normal Saline Flush 0.9%) 10 ml IVP PRN PRN PRN Reason: NEEDED PER PROVIDER ORDERS Last Admin: 04/26/18 09:04 Dose: 10 ml Sodium Chloride (Normal Saline Flush 0.9%) 10 ml IVP 0100,0900,1700 [facility] Last Admin: 04/26/18 07:53 Dose: Not Given Zolpidem Tartrate (Ambien) 5 mg PO QPM PRN PRN Reason: Insomnia Albuterol Sulfate [Proair Hfa Inhaler] 2 puffs INH Q4H PRN 04/25/18 Apixaban [Eliquis] 2.5 mg PO BID 04/25/18 Fluticasone/Salmeterol [Advair 250-50 Diskus] 1 puffs INH BID 04/25/18 Lisinopril 20 mg PO DAILY 04/25/18 Allergies/Adverse Reactions: Allergies Allergy/AdvReac Type Severity Reaction Status Date / Time diltiazem Allergy Unknown Unknown Verified 04/24/18 15:22 Anes History & Medical History - Anesthetic History Anesthesia Complications: reports: Post-Operative Nausea/Vomiting Family history of Anesthesia Complications: Denies Family history of Malignant Hyperthermia: Denies - Medical History Cardiovascular: reports: Hypertension, Atrial fibrillation, Arrhythmia Pulmonary: reports: COPD, Emphysema, Shortness of breath Gastrointestinal: reports: Hiatal hernia, Diverticulitis, Cholelithiasis Urinary: reports: Incontinence Musculoskeletal: reports: None Endocrine/Autoimmune: reports: None Blood Disorders: reports: None Skin: reports: Eczema Smoking Status: Former smoker - Surgical History General: Cholecystectomy, Appendectomy, Hiatal hernia repair, Colonoscopy Eyes Ears Nose Throat (EENT): Tonsil/Adenoidectomy Gynecologic: Other Dermatologic: Skin cancer surgery Exam Dental: Partials Upper Mouth Openin Fingerbreadth Neck Mobility: Normal Mallampati classification: II Thyromental Distance: greater than 6 cm Respiratory: Lungs clear, Normal breath sounds, No respiratory distress, No accessory muscle use Cardiovascular: Other (irregular rhythm) Plan Anesthesia Type: General Consent for Procedure(s) Verified and Reviewed: Yes Code Status: Attempt Resuscitation ASA classification: 3-Severe systemic disease Is this case an emergency?: No
[2018-04-26] MEDS: SODIUM CHLORIDE 0.9% 1,000 ML IV SCH ×2 (12:06→17:05)
[2018-04-26] MEDS ORDERED: BUPIVACAINE 0.25%-EPI 1:200000 PF 30 ML VIAL ONE (12:52)
--- NOTE | 2018-04-26 14:05 | PROVIDER PROGRESS NOTE ---
Subjective - Prog Note Date Prog Note Date: 04/26/18 - Subjective Pt reports feeling: No change Subjective: pt report she has pain when she tried to move left leg because of fracture on left femoral. pt report she did use her O2 special in the night. she denies fever, chill, dysuria, chest pain, shortness of breath. she is anxious to want to discuss with her orthopedics surgeon for ongoing surgery today. Current Medications - Current Medications Current Medications: Active Medications Acetaminophen (Tylenol) 650 mg PO Q4HR PRN PRN Reason: Pain 1 to 4 Hydrocodone Bitart/Acetaminophen ([place] 5/325) 1 tab PO Q4HR PRN PRN Reason: Pain 5 to 7 Last Admin: 04/25/18 16:23 Dose: 1 tab Albuterol () 2.5 mg INH RTQ4H PRN PRN Reason: Wheezing Last Admin: 04/26/18 09:55 Dose: 2.5 mg Budesonide (Pulmicort) 0.5 mg INH RTBID [facility] Last Admin: 04/26/18 09:40 Dose: 0.5 mg Formoterol Fumarate (Perforomist) 20 mcg INH RTBID [facility] Last Admin: 04/26/18 09:40 Dose: 20 mcg Ceftriaxone Sodium 1 gm/ (Sodium Chloride) 100 mls @ 200 mls/hr IV DAILY@0600 [facility] Last Infusion: 04/26/18 07:49 Dose: Infused Sodium Chloride (Normal Saline 0.9%) 1,000 mls @ 83.333 mls/hr IV .Q12H [facility] Last Admin: 04/26/18 12:06 Dose: 83.333 mls/hr Ketorolac Tromethamine (Toradol Inj (15mg)) 15 mg IM Q6HR PRN PRN Reason: Mild Pain Stop: 04/30/18 05:37 Last Admin: 04/25/18 19:44 Dose: 15 mg Metoprolol Succinate (Toprol Xl) 50 mg PO BIDWM [facility] Last Admin: 04/26/18 08:58 Dose: 50 mg Morphine Sulfate (Morphine (Carpuject)) 2 mg IVP Q2HR PRN PRN Reason: Pain 8 to 10 Last Admin: 04/26/18 09:04 Dose: 2 mg Ondansetron HCl (Zofran Inj) 4 mg IVP Q6HR PRN PRN Reason: Nausea / Vomiting Last Admin: 04/26/18 09:04 Dose: 4 mg Pantoprazole Sodium (Protonix) 40 mg PO QDAC [facility] Last Admin: 04/26/18 06:31 Dose: 40 mg Polyethylene Glycol (Miralax) 17 gm PO DAILY [facility] Last Admin: 04/26/18 08:59 Dose: Not Given Sodium Chloride (Normal Saline Flush 0.9%) 10 ml IVP PRN PRN PRN Reason: NEEDED PER PROVIDER ORDERS Last Admin: 04/26/18 09:04 Dose: 10 ml Sodium Chloride (Normal Saline Flush 0.9%) 10 ml IVP 0100,0900,1700 [facility] Last Admin: 04/26/18 07:53 Dose: Not Given Zolpidem Tartrate (Ambien) 5 mg PO QPM PRN PRN Reason: Insomnia Albuterol Sulfate [Proair Hfa Inhaler] 2 puffs INH Q4H PRN 04/25/18 Apixaban [Eliquis] 2.5 mg PO BID 04/25/18 Fluticasone/Salmeterol [Advair 250-50 Diskus] 1 puffs INH BID 04/25/18 Lisinopril 20 mg PO DAILY 04/25/18 Objective - Vital Signs/Intake & Output Reviewed Vital Signs: Yes Vital Signs: Vital Signs x48h Temp Pulse Pulse Resp BP Pulse Ox 04/26/18 09:59 95 20 04/26/18 08:07 37.4 C 97 18 131/68 H 98 04/26/18 07:02 37.6 C H Intake & Output: Intake & Output 04/23/18 04/24/18 04/25/18 04/26/18 23:59 23:59 23:59 23:59 Intake Total 500 1886 1100 Output Total 400 450 150 Balance 100 1436 950 - Objective General Appearance: positive: No acute distress, Alert. negative: Lethargic Eyes Bilateral: positive: Normal inspection, PERRL, No lid inflammation, Conjunctivae nml ENT: positive: ENT inspection nml, Pharynx nml, No signs of dehydration. negati ve: Purulent nasal drainage, Pharyngeal erythema, Oral lesions Neck: positive: Nml inspection, Thyroid nml, No JVD, Trachea midline. negative: Thyromegaly, Lymphadenopathy (R), Lymphadenopathy (L), Stiff neck, Carotid bruit, Swelling/bruising, Tracheal deviation Respiratory: positive: Chest non-tender, No respiratory distress, Breath sounds nml. negative: Wheezes, Rales, Rhonchi Cardiovascular: positive: Regular rate & rhythm, No murmur, No gallop. negative: Irregularly irregular, Extrasystoles, Tachycardia, Bradycardia, JVD present, Systolic murmur, Diastolic murmur Peripheral Pulses: 2+ Radial (R), 2+ Radial (L), 2+ Dorsalis pedis (R), 2+ Dorsalis pedis (L) Abdomen: positive: Non-tender, No organomegaly, Nml bowel sounds, No distention. negative: Tenderness, Guarding, Rebound Back: positive: Nml inspection. negative: CVA tenderness (R), CVA tenderness (L) Skin: positive: Color nml, No rash, Warm, Dry. negative: Cyanosis, Diaphoresis, Pallor Extremities: positive: Nml appearance. negative: Calf tenderness, Joint swelling, Vick's sign/cords Neurologic/Psychiatric: positive: Oriented x3, Sensation nml, Mood/affect nml. negative: Weakness, Sensory loss, Facial droop, Slurred/abnml speech, Depressed mood/affect - Lab Results Fish Bones: 04/26/18 05:57 04/26/18 05:57 Other Labs: Lab Results x24hrs 04/26/18 04/26/18 04/26/18 Range/Units 05:57 05:57 05:57 WBC 9.5 (4.8-10.8) x10^3/uL RBC 3.50 L (4.20-5.40) 10^6/uL Hgb 11.7 L (12.0-16.0) g/dL Hct 34.9 L (37.0-47.0) % MCV 99.5 H (81.0-99.0) fL MCH 33.4 H (27.0-31.0) pg MCHC 33.5 (32.0-36.0) g/dL RDW 12.2 (12.0-15.0) % Plt Count 212 (130-450) 10^3/uL MPV 6.8 L (7.9-10.8) fL Neut # (Auto) 8.0 H (1.5-6.6) 10^3/uL Lymph # (Auto) 0.5 L (1.5-3.5) 10^3/uL [place] # (Auto) 0.7 (0.0-1.0) 10^3/uL Eos # (Auto) 0.1 (0.0-0.7) 10^3/uL Baso # (Auto) 0.1 (0.0-0.1) 10^3/uL Absolute Nucleated RBC 0.00 x10^3/uL Nucleated RBC % 0.0 /100WBC Sodium 127 L (135-145) mmol/L Potassium 4.6 (3.5-5.0) mmol/L Chloride 94 L (101-111) mmol/L Carbon Dioxide 30 (21-32) mmol/L Anion Gap 3.0 L (6-13) BUN 16 (6-20) mg/dL Creatinine 0.5 (0.4-1.0) mg/dL Estimated GFR (MDRD) 119 (>89) Glucose 116 H (70-100) mg/dL Lactic Acid 0.7 (0.5-2.2) mmol/L Calcium 7.9 L (8.5-10.3) mg/dL Phosphorus 2.5 (2.5-4.6) mg/dL Magnesium 2.4 (1.7-2.8) mg/dL Total Bilirubin 0.5 (0.2-1.0) mg/dL AST 49 H (10-42) IU/L ALT 65 H (10-60) IU/L Alkaline Phosphatase 75 (42-121) IU/L Total Protein 6.1 L (6.7-8.2) g/dL Albumin 3.4 (3.2-5.5) g/dL Globulin 2.7 (2.1-4.2) g/dL Albumin/Globulin Ratio 1.3 (1.0-2.2) ABX Reporting Has patient been on IV antibiotics over the past 48 hours?: Yes Sepsis Event Note (H) - Evaluation Current Stage of Sepsis: Ruled out Assessment/Plan - Problem List (1) Fracture of femoral neck, left Impression: (1) Fracture of femoral neck, left pt is planned to have surgery today, will follow up after operation continue pain control continue PT/OT (2) Fall advise pt for fall precaution (3) UTI (urinary tract infection) Continue IV rocephin, cultures are pending. (4) Nausea stable today, continue antiemosis PRN (5) Paroxysmal atrial fibrillation stable, Continue tele, echo review EF 70%, HOLD blood thinner Elipquis until after surgery. (6) Pulmonary hypertension, moderate to severe Impression: stable, echo results show elevated right heart pressures with an RVSP at rest of 65 mmHg. continue O2 supplement as needed, pt has O2 supplement at home Qualifiers: Encounter type: initial encounter Fracture type: closed Qualified Code(s): S72.002A - Fracture of unspecified part of neck of left femur, initial encounter for closed fracture
[2018-04-26] MEDS ORDERED: ceFAZolin 2 GM/50 ML 2 GM/50 ML BAG IV ONE ×2 (14:13→15:00)
[2018-04-26] MEDS ORDERED: BUPIVACAINE 0.25%-EPI 1:200000 PF 10 ML VIAL SUBQ ONE (14:17)
[2018-04-26] MEDS ORDERED: SODIUM CHLORIDE 0.9% 1,000 ML IV ONE (14:19)
[2018-04-26] MEDS ORDERED: LACTATED RINGERS 1,000 ML IV ONE (14:20)
[2018-04-26] MEDS ORDERED: SUGAMMADEX 200 MG/2 ML VIAL IVP ONE (14:43)
--- NOTE | 2018-04-26 14:51 | OPERATIVE REPORT ---
Operative Report - General Admit Date: 04/24/18 Procedure Date: 04/26/18 Planned Procedure: in-situ screw fixation of left femoral neck fracture Pre-Op Diagnosis: left femoral neck fracture/valgus impacted Procedure Performed: in-situ pinning (screws) left femoral neck - Procedure Note Primary Surgeon: valentin Anesthesia Provider: Anesthesia Technique: General ET tube Estimated Blood Loss (mL): 60
[2018-04-26] MEDS ORDERED: ePHEDrine 50 MG/ML VIAL IVP ONE (15:00)
[2018-04-26] MEDS ORDERED: fentaNYL 100 MCG/2 ML VIAL IVP ONE (15:00)
[2018-04-26] MEDS ORDERED: LIDOCAINE-MPF 2% 5 ML VIAL IM ONE (15:00)
[2018-04-26] MEDS ORDERED: PROPOFOL 200 MG/20 ML VIAL IVP ONE (15:00)
[2018-04-26] MEDS ORDERED: ROCURONIUM 50 MG/5 ML VIAL IVP ONE (15:00)
--- NOTE | 2018-04-26 15:02 | XRAY Report ---
Reason: ORIF Procedure Date: 04/26/2018 Accession Number: [id number] / [id number] Procedure: XR - Hip w/Pelvis 1V LT CPT Code: FULL RESULT: EXAM: LEFT HIP AND PELVIS RADIOGRAPHY EXAM DATE: 04/26/2018 02:24 PM. HISTORY: ORIF. COMPARISONS: None. TECHNIQUE: 2 AP views of a intraoperative left hip. FINDINGS: 3 partially threaded cannulated screws are seen traversing the left femoral neck. IMPRESSION: Left femoral neck screws as described. RADIA
--- NOTE | 2018-04-26 15:08 | XRAY Report ---
Reason: PINNING LEFT HIP Procedure Date: 04/26/2018 Accession Number: [id number] / [id number] Procedure: FL - OR C-Arm Procedure CPT Code: FULL RESULT: EXAM: FLUOROSCOPIC GUIDANCE EXAM DATE: 04/26/2018 02:24 PM. CLINICAL HISTORY: Pinning left hip. COMPARISON: None. FINDINGS: See separate dictation. IMPRESSION: Fluoroscopic guidance provided for left hip pinning. Total fluoroscopy time: 31 seconds. Number of images: 2. RADIA
--- NOTE | 2018-04-26 15:45 | OPERATIVE REPORT ---
DATE OF SERVICE: 04/24/2018 Physician: Ky Loza MD PREOPERATIVE DIAGNOSIS: Valgus impacted left femoral neck fracture. POSTOPERATIVE DIAGNOSIS: Valgus impacted left femoral neck fracture. PROCEDURE PERFORMED: In situ pinning of the left femoral neck. SURGEON: Ky Loza MD ANESTHESIA PROVIDER/TYPE: General by Dr. Colunga. INDICATIONS FOR SURGERY: The patient was an 78-year-old female status post a ground-level fall injuring her left hip and admitted to the hospital. She has a valgus impacted femoral neck fracture and surgery was recommended for in situ pinning. DESCRIPTION OF OPERATIVE PROCEDURE: The patient was taken to the operating room and carefully placed supine on the fracture table and positioned appropriately with longitudinal traction through a padded boot on the left foot and a stirrup on the right with hip and knee flexed and abduction of the right hip. The safety straps and arm boards were applied for the right arm, left arm over the chest. The C-arm program manager environmental planning films confirmed excellent visibility on AP and lateral views. Sterile prep and drape was undertaken. Alignment was evaluated for placement of screws, and after surgical timeout, infiltration performed with Marcaine and epinephrine in the planned incision site for placement of the drill guide against the femur and drilling 3 trocar threaded tip screws into the femur and up into the femoral neck, aiming for parallelism and subchondral placement. The screws were then inserted after measuring off the guide pins and keeping the screw subarticular and gaining good fixation as viewed in AP and lateral planes and with release of traction allowing rotation of the hip showing no crepitus or engagement of screws. The wound was irrigated thoroughly and closed then with Vicryl subcutaneous and then chary in skin. A small silver containing dressing was applied. The hip area was infiltrated with Marcaine and epinephrine, approximately 20 mL. The patient was then carefully taken off the fracture table onto a hospital bed and taken to the recovery room in stable condition. ESTIMATED BLOOD LOSS: Minimal, less than 60 or 50 mL COMPLICATIONS: None. COUNTS: Sponge and needle counts correct. TD: 04/26/2018 15:06 [email or web address]
[2018-04-26] MEDS: KETOROLAC 15 MG/ML VIAL IM PRN (17:38)
[2018-04-26] MEDS: HYDROcod/ACETAM 5/325 MG TABLET PO PRN (20:05)
[2018-04-26] MEDS ORDERED: KETOROLAC 15 MG/ML VIAL IVP PRN (23:26)
[2018-04-27] MEDS: SODIUM CHLORIDE FLUSH 0.9% 10 ML SYRINGE IVP SCH ×5 (00:30→23:53)
[2018-04-27] MEDS ORDERED: NALOXONE 0.4 MG/ML VIAL IVP ONE (00:50)
[2018-04-27] MEDS ORDERED: NALOXONE 0.4 MG/ML VIAL ONE (01:00)
[2018-04-27] MEDS: SODIUM CHLORIDE 0.9% 1,000 ML IV SCH (04:46)
[2018-04-27 05:45] LABS: BASOPHILS % (AUTO) 0.4 %; EOSINOPHILS # (AUTO) 0.4 10^3/uL (0.0-0.7); EOSINOPHILS % (AUTO) 4.3 %; HGB - HEMOGLOBIN 12.1 g/dL (12.0-16.0); LYMPHOCYTES # (AUTO) 0.9 10^3/uL (1.5-3.5); LYMPHOCYTES % (AUTO) 9.6 %; MEAN CORPUSCULAR HEMOGLOBIN 33.8 pg (27.0-31.0); MEAN CORPUSCULAR HGB CONC 33.5 g/dL (32.0-36.0); MEAN CORPUSCULAR VOLUME 100.9 fL (81.0-99.0); MEAN PLATELET VOLUME 7.2 fL (7.9-10.8); MONOCYTES # (AUTO) 1.2 10^3/uL (0.0-1.0); MONOCYTES % (AUTO) 12.8 %; NEUTROPHILS # (AUTO) 6.8 10^3/uL (1.5-6.6); NEUTROPHILS % (AUTO) 72.9 %; PLT - PLATELET COUNT 189 10^3/uL (130-450); RED BLOOD COUNT 3.58 10^6/uL (4.20-5.40); RED CELL DISTRIBUTION WIDTH 12.4 % (12.0-15.0); WHITE BLOOD COUNT 9.3 x10^3/uL (4.8-10.8)
[2018-04-27 05:53] LABS: ALBUMIN 3.3 g/dL (3.2-5.5); ALBUMIN/GLOBULIN RATIO 1.1 (1.0-2.2); BILIRUBIN,TOTAL 0.6 mg/dL (0.2-1.0); CREATININE 0.4 mg/dL (0.4-1.0); TOTAL PROTEIN 6.4 g/dL (6.7-8.2)
[2018-04-27] MEDS: cefTRIAXone 1 GM in SODIUM CHLORIDE 0.9% MINIBAG 100 ML IV SCH (06:10)
[2018-04-27] MEDS: PANTOPRAZOLE 40 MG TABLET PO SCH ×2 (07:20→08:18)
[2018-04-27] MEDS: BUDESONIDE 0.5 MG/2 ML NEB INH SCH ×2 (07:24→18:06)
[2018-04-27] MEDS: FORMOTEROL FUMARATE NEB 20 MCG/2 ML INH SCH ×2 (07:24→18:06)
[2018-04-27] MEDS: METOPROLOL SUCCINATE 25 MG TABLET PO SCH ×2 (08:17→17:38)
[2018-04-27] MEDS: POLYETHYLENE GLYCOL 3350 17 GM PACKET PO SCH (08:20)
--- NOTE | 2018-04-27 08:45 | XRAY Report ---
Reason: SOB Procedure Date: 04/27/2018 Accession Number: [id number] / [id number] Procedure: XR - Chest 1 View X-Ray CPT Code: 89885 FULL RESULT: EXAM: CHEST RADIOGRAPHY EXAM DATE: 04/27/2018 08:32 AM. CLINICAL HISTORY: Shortness of breath. COMPARISON: RIBS W/PA CHEST LT 04/24/2018 4:16 PM. TECHNIQUE: 1 view. FINDINGS: Lungs/Pleura: As before, there is mild prominence of the interstitium, nonspecific. Minor hazy opacification of the lung bases likely represents minimal effusions. There is no consolidation or pneumothorax. Mediastinum: Heart and mediastinal contours are notable for aortic calcification. Other: None. IMPRESSION: 1. Stable minor interstitial prominence of the lungs which may be chronic. 2. Trace bilateral pleural effusions. No pneumothorax. RADIA
--- NOTE | 2018-04-27 09:52 | PROVIDER PROGRESS NOTE ---
Subjective - General Admit Date: 04/24/18 Procedure Date: 04/26/18 Post Op Days: 1 Procedure Performed: In-situ pinning right hip - Review of Systems Wound/Incisions: positive: Dressing dry and intact General: positive: Fatigue Musculoskeletal: positive: Joint pain Objective - Patient Data Reviewed Vital Signs: Yes Vital Signs: Vital Signs x48h Temp Pulse Pulse Pulse Resp BP BP 04/27/18 08:03 37.4 C 107 H 22 158/83 H 04/27/18 07:27 101 H 20 04/27/18 06:50 104 H 27 H 160/82 H 04/27/18 04:17 37.2 C 86 25 H 133/61 H 04/27/18 03:00 115 H 22 136/71 H 04/27/18 02:00 89 21 101/50 L Pulse Ox 04/27/18 08:03 96 04/27/18 07:27 04/27/18 06:50 99 04/27/18 04:17 100 04/27/18 03:00 86 L 04/27/18 02:00 100 Intake & Output: Intake and Output Totals x24h 04/25/18 04/26/18 04/27/18 23:59 23:59 23:59 Intake Total 1886 1919.3 1593.606 Output Total 450 250 300 Balance 1436 1669.3 1293.606 - Lab Results Lab Results: 04/27/18 05:05 04/27/18 05:05 Other Lab Results: Lab Results x24hrs 04/27/18 04/27/18 04/27/18 Range/Units 08:39 05:05 05:05 WBC 9.3 (4.8-10.8) x10^3/uL RBC 3.58 L (4.20-5.40) 10^6/uL Hgb 12.1 (12.0-16.0) g/dL Hct 36.1 L (37.0-47.0) % MCV 100.9 H (81.0-99.0) fL MCH 33.8 H (27.0-31.0) pg MCHC 33.5 (32.0-36.0) g/dL RDW 12.4 (12.0-15.0) % Plt Count 189 (130-450) 10^3/uL MPV 7.2 L (7.9-10.8) fL Neut # (Auto) 6.8 H (1.5-6.6) 10^3/uL Lymph # (Auto) 0.9 L (1.5-3.5) 10^3/uL [place] # (Auto) 1.2 H (0.0-1.0) 10^3/uL Eos # (Auto) 0.4 (0.0-0.7) 10^3/uL Baso # (Auto) 0.0 (0.0-0.1) 10^3/uL Absolute Nucleated RBC 0.00 x10^3/uL Nucleated RBC % 0.0 /100WBC Sodium 132 L (135-145) mmol/L Potassium 4.5 (3.5-5.0) mmol/L Chloride 97 L (101-111) mmol/L Carbon Dioxide 28 (21-32) mmol/L Anion Gap 7.0 (6-13) BUN 14 (6-20) mg/dL Creatinine 0.4 (0.4-1.0) mg/dL Estimated GFR (MDRD) 154 (>89) Glucose 107 H (70-100) mg/dL Calcium 8.0 L (8.5-10.3) mg/dL Total Bilirubin 0.6 (0.2-1.0) mg/dL AST 58 H (10-42) IU/L ALT 76 H (10-60) IU/L Alkaline Phosphatase 111 (42-121) IU/L Troponin I 0.14 (<0.49) ng/mL Total Protein 6.4 L (6.7-8.2) g/dL Albumin 3.3 (3.2-5.5) g/dL Globulin 3.1 (2.1-4.2) g/dL Albumin/Globulin Ratio 1.1 (1.0-2.2) - Current Medications Current Medications: Current Medications Generic Name Dose Route Start Last Admin Trade Name Freq PRN Reason Stop Dose Admin Hydrocodone Bitart/Acetaminophen 1 tab 04/24/18 20:20 04/26/18 20:05 [place] 5/325 PO 1 tab Q4HR PRN Administration Pain 5 to 7 Albuterol 2.5 mg 04/25/18 11:57 04/26/18 21:41 INH 2.5 mg RTQ4H PRN Administration Wheezing Budesonide 0.5 mg 04/25/18 19:00 04/27/18 07:24 Pulmicort INH 0.5 mg RTBID [facility] Administration Formoterol Fumarate 20 mcg 04/25/18 19:00 04/27/18 07:24 Perforomist INH 20 mcg RTBID [facility] Administration Ceftriaxone Sodium 1 gm/ 100 mls @ 200 mls/hr 04/25/18 06:00 04/27/18 06:58 Sodium Chloride IV Infused DAILY@0600 [facility] Infusion Ketorolac Tromethamine 15 mg 04/26/18 23:26 04/27/18 08:09 Toradol Inj (15mg) IVP 05/01/18 23:25 15 mg Q6HR PRN Administration mild PAIN Metoprolol Succinate 50 mg 04/25/18 21:00 04/27/18 08:17 Toprol Xl PO 50 mg BIDWM [facility] Administration Morphine Sulfate 2 mg 04/24/18 20:20 04/26/18 09:04 Morphine (Carpuject) IVP 2 mg Q2HR PRN Administration Pain 8 to 10 Ondansetron HCl 4 mg 04/24/18 20:20 04/26/18 09:04 Zofran Inj IVP 4 mg Q6HR PRN Administration Nausea / Vomiting Pantoprazole Sodium 40 mg 04/25/18 07:00 04/27/18 08:18 Protonix PO 40 mg QDAC [facility] Administration Polyethylene Glycol 17 gm 04/25/18 09:00 04/27/18 08:20 Miralax PO Not Given DAILY [facility] Sodium Chloride 10 ml 04/24/18 20:20 04/26/18 09:04 Normal Saline Flush 0.9% IVP 10 ml PRN PRN Administration NEEDED PER PROVIDER ORDERS Sodium Chloride 10 ml 04/25/18 01:00 04/27/18 08:20 Normal Saline Flush 0.9% IVP Not Given 0100,0900,1700 [facility] Zolpidem Tartrate 5 mg 04/24/18 20:20 04/26/18 21:47 Ambien PO 5 mg QPM PRN Administration Insomnia - Physical Exam Wound/Incisions: positive: Dressing dry and intact General Appearance: positive: Lethargic Cardiovascular: positive: Regular rate & rhythm Extremities: positive: Joint swelling Neurologic/Psychiatric: positive: Oriented x3, CN's nml (2-12), Motor nml, Sen sation nml Impression/Plan - Problem List Problem List: POD #1 Pt reports a "very bad night" and it is also confirmed by her nurse. There was increased sedation overnight, but she is doing better and baseline now. The patient will begin chair sitting, transfers, PT I am OK with resuming her anticoagulation.
[2018-04-27] MEDS ORDERED: IPRATROPIUM/ALBUTEROL 3 ML NEB INH PRN (10:36)
[2018-04-27] MEDS ORDERED: IOVERSOL 320 100 ML VIAL IVP ONE ×2 (10:53→12:24)
[2018-04-27] MEDS ORDERED: ASPIRIN 325 MG TABLET PO SCH (11:00)
[2018-04-27] MEDS ORDERED: FUROSEMIDE 20 MG TABLET PO SCH (11:00)
[2018-04-27] MEDS: APIXABAN 2.5 MG TABLET PO SCH ×2 (11:04→21:32)
--- NOTE | 2018-04-27 12:07 | CT Report ---
Reason: SOB, and chest pain Procedure Date: 04/27/2018 Accession Number: [id number] / [id number] Procedure: CT - Chest Angio (PE) CPT Code: FULL RESULT: EXAM: CT ANGIOGRAM CHEST EXAM DATE: 04/27/2018 11:48 AM. CLINICAL HISTORY: Shortness of breath. Chest pain. COMPARISON: None. TECHNIQUE: Routine helical imaging was performed through the chest in the pulmonary arterial phase. IV Contrast: 60 cc Optiray 320. Reconstructions: Coronal 3-D MIP reconstructions.Sagittal and coronal. In accordance with CT protocol optimization, one or more of the following dose reduction techniques were utilized for this exam: automated exposure control, adjustment of mA and/or KV based on patient size, or use of iterative reconstructive technique. FINDINGS: Pulmonary Arteries: Diagnostic quality: Adequate through the segmental arteries. No evidence for acute or chronic pulmonary emboli. RV/LV is within normal limits. There is no interventricular septal bowing. There is no reflux of contrast material in the IVC. Lungs/Pleura: Small bilateral pleural effusions and lower lobe atelectasis is seen. There is some mild bronchiectasis and cystic changes seen in the right middle lobe and to a lesser degree the lingula region. Some minor endobronchial opacification is seen in association, likely postinflammatory. A more discrete nodular density is seen in the right upper lobe measuring 7 x 6 mm (image 70, series 5). There is some increased intralobular septal thickening in the upper lobes with nonfocal slight increased attenuation changes of the pulmonary parenchyma. Mediastinum: Heart size is normal with no pericardial effusion or adenopathy. Thoracic Aorta: Unremarkable. Upper Abdomen: Unremarkable. Other: None. IMPRESSION: 1. No pulmonary embolism or other acute vascular pathology demonstrated. 2. Small bilateral pleural effusions and lower lobe atelectasis. 3. Irregular 7 x 6 mm nodular density in the right upper lobe, indeterminate and possibly postinflammatory. Follow-up CT and 6 months suggested for further evaluation. 4. 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 5. Interstitial changes with upper lobe predominance, nonspecific. Findings could represent atypical pneumonia or pulmonary edema changes. RADIA
[2018-04-27] MEDS: CEFEPIME 1 GM in SODIUM CHLORIDE 0.9% MINIBAG 100 ML IV SCH ×2 (14:30→21:32)
[2018-04-27] MEDS: ACETAMINOPHEN 325 MG TABLET PO PRN ×2 (15:40→21:32)
--- NOTE | 2018-04-27 16:14 | PROVIDER PROGRESS NOTE ---
Subjective - Prog Note Date Prog Note Date: 04/27/18 - Subjective Pt reports feeling: Worse Subjective: pt present hypoxia need O2mask, also pt complain chest pain. pt denies fever, chill. Current Medications - Current Medications Current Medications: Active Medications Acetaminophen (Tylenol) 650 mg PO Q4HR PRN PRN Reason: Pain 1 to 4 Last Admin: 04/27/18 15:40 Dose: 650 mg Hydrocodone Bitart/Acetaminophen ([place] 5/325) 1 tab PO Q4HR PRN PRN Reason: Pain 5 to 7 Last Admin: 04/26/18 20:05 Dose: 1 tab Albuterol () 2.5 mg INH RTQ4H PRN PRN Reason: Wheezing Last Admin: 04/26/18 21:41 Dose: 2.5 mg Albuterol/Ipratropium (Duoneb) 3 ml INH RTQID PRN PRN Reason: Shortness of Air/Wheezing Apixaban (Eliquis) 2.5 mg PO BID [facility] Last Admin: 04/27/18 11:04 Dose: 2.5 mg Aspirin (Nirmala) 325 mg PO ONCE [facility] Stop: 04/27/18 23:00 Last Admin: 04/27/18 11:04 Dose: 325 mg Budesonide (Pulmicort) 0.5 mg INH RTBID [facility] Last Admin: 04/27/18 07:24 Dose: 0.5 mg Formoterol Fumarate (Perforomist) 20 mcg INH RTBID [facility] Last Admin: 04/27/18 07:24 Dose: 20 mcg Cefepime HCl 1 gm/ Sodium (Chloride) 100 mls @ 200 mls/hr IV TID [facility] Last Infusion: 04/27/18 16:29 Dose: Infused Metoprolol Succinate (Toprol Xl) 50 mg PO BIDWM [facility] Last Admin: 04/27/18 08:17 Dose: 50 mg Morphine Sulfate (Morphine (Carpuject)) 2 mg IVP Q2HR PRN PRN Reason: Pain 8 to 10 Last Admin: 04/26/18 09:04 Dose: 2 mg Nitroglycerin (Nitrostat) 0.4 mg SL Q5MIN PRN PRN Reason: Chest Pain Ondansetron HCl (Zofran Inj) 4 mg IVP Q6HR PRN PRN Reason: Nausea / Vomiting Last Admin: 04/26/18 09:04 Dose: 4 mg Pantoprazole Sodium (Protonix) 40 mg PO QDAC [facility] Last Admin: 04/27/18 08:18 Dose: 40 mg Polyethylene Glycol (Miralax) 17 gm PO DAILY [facility] Last Admin: 04/27/18 08:20 Dose: Not Given Sodium Chloride (Normal Saline Flush 0.9%) 10 ml IVP PRN PRN PRN Reason: NEEDED PER PROVIDER ORDERS Last Admin: 04/26/18 09:04 Dose: 10 ml Sodium Chloride (Normal Saline Flush 0.9%) 10 ml IVP 0100,0900,1700 [facility] Last Admin: 04/27/18 08:20 Dose: Not Given Albuterol Sulfate [Proair Hfa Inhaler] 2 puffs INH Q4H PRN 04/25/18 Apixaban [Eliquis] 2.5 mg PO BID 04/25/18 Fluticasone/Salmeterol [Advair 250-50 Diskus] 1 puffs INH BID 04/25/18 Lisinopril 20 mg PO DAILY 04/25/18 Objective - Vital Signs/Intake & Output Reviewed Vital Signs: Yes Vital Signs: Vital Signs x48h Temp Pulse Pulse Resp BP Pulse Ox 04/27/18 15:37 104 H 98 04/27/18 12:16 36.5 C 110 H 20 143/75 H 95 04/27/18 12:07 98 04/27/18 12:05 84 L Intake & Output: Intake & Output 04/24/18 04/25/18 04/26/18 04/27/18 23:59 23:59 23:59 23:59 Intake Total 500 1886 1919.3 1953.606 Output Total 400 450 250 900 Balance 100 1436 1669.3 1053.606 - Objective General Appearance: positive: No acute distress, Alert. negative: Lethargic Eyes Bilateral: positive: Normal inspection, PERRL, No lid inflammation, Conjunctivae nml ENT: positive: ENT inspection nml, Pharynx nml, No signs of dehydration. negative: Purulent nasal drainage, Pharyngeal erythema, Oral lesions Neck: positive: Nml inspection, Thyroid nml, No JVD, Trachea midline. negative: Thyromegaly, Lymphadenopathy (R), Lymphadenopathy (L), Stiff neck, S welling/bruising, Tracheal deviation Respiratory: positive: Chest non-tender, No respiratory distress. negative: Wheezes, Rales, Rhonchi Cardiovascular: positive: Regular rate & rhythm, No murmur, No gallop, Tachycardia. negative: Irregularly irregular, Extrasystoles, Bradycardia, JVD present, Systolic murmur, Diastolic murmur Peripheral Pulses: 2+ Radial (R), 2+ Radial (L), 2+ Dorsalis pedis (R), 2+ Dorsalis pedis (L) Abdomen: positive: Non-tender, No organomegaly, Nml bowel sounds, No distention. negative: Tenderness, Guarding, Rebound Back: positive: Nml inspection. negative: CVA tenderness (R), CVA tenderness (L) Skin: positive: Color nml, No rash, Warm, Dry. negative: Cyanosis, Diaphoresis, Pallor Extremities: positive: Non-tender, Full ROM, Nml appearance. negative: Calf tenderness, Joint swelling, Vick's sign/cords Neurologic/Psychiatric: positive: Sensation nml. negative: Weakness, Sensory loss, Facial droop, Slurred/abnml speech, Depressed mood/affect - Lab Results Fish Bones: 04/27/18 05:05 04/27/18 05:05 Other Labs: Lab Results x24hrs 04/27/18 04/27/18 04/27/18 Range/Units 14:05 08:39 05:05 WBC (4.8-10.8) x10^3/uL RBC (4.20-5.40) 10^6/uL Hgb (12.0-16.0) g/dL Hct (37.0-47.0) % MCV (81.0-99.0) fL MCH (27.0-31.0) pg MCHC (32.0-36.0) g/dL RDW (12.0-15.0) % Plt Count (130-450) 10^3/uL MPV (7.9-10.8) fL Neut # (Auto) (1.5-6.6) 10^3/uL Lymph # (Auto) (1.5-3.5) 10^3/uL [place] # (Auto) (0.0-1.0) 10^3/uL Eos # (Auto) (0.0-0.7) 10^3/uL Baso # (Auto) (0.0-0.1) 10^3/uL Absolute Nucleated RBC x10^3/uL Nucleated RBC % /100WBC Sodium 132 L (135-145) mmol/L Potassium 4.5 (3.5-5.0) mmol/L Chloride 97 L (101-111) mmol/L Carbon Dioxide 28 (21-32) mmol/L Anion Gap 7.0 (6-13) BUN 14 (6-20) mg/dL Creatinine 0.4 (0.4-1.0) mg/dL Estimated GFR (MDRD) 154 (>89) Glucose 107 H (70-100) mg/dL Calcium 8.0 L (8.5-10.3) mg/dL Total Bilirubin 0.6 (0.2-1.0) mg/dL AST 58 H (10-42) IU/L ALT 76 H (10-60) IU/L Alkaline Phosphatase 111 (42-121) IU/L Troponin I 0.11 0.14 (<0.49) ng/mL Total Protein 6.4 L (6.7-8.2) g/dL Albumin 3.3 (3.2-5.5) g/dL Globulin 3.1 (2.1-4.2) g/dL Albumin/Globulin Ratio 1.1 (1.0-2.2) 04/27/18 Range/Units 05:05 WBC 9.3 (4.8-10.8) x10^3/uL RBC 3.58 L (4.20-5.40) 10^6/uL Hgb 12.1 (12.0-16.0) g/dL Hct 36.1 L (37.0-47.0) % MCV 100.9 H (81.0-99.0) fL MCH 33.8 H (27.0-31.0) pg MCHC 33.5 (32.0-36.0) g/dL RDW 12.4 (12.0-15.0) % Plt Count 189 (130-450) 10^3/uL MPV 7.2 L (7.9-10.8) fL Neut # (Auto) 6.8 H (1.5-6.6) 10^3/uL Lymph # (Auto) 0.9 L (1.5-3.5) 10^3/uL [place] # (Auto) 1.2 H (0.0-1.0) 10^3/uL Eos # (Auto) 0.4 (0.0-0.7) 10^3/uL Baso # (Auto) 0.0 (0.0-0.1) 10^3/uL Absolute Nucleated RBC 0.00 x10^3/uL Nucleated RBC % 0.0 /100WBC Sodium (135-145) mmol/L Potassium (3.5-5.0) mmol/L Chloride (101-111) mmol/L Carbon Dioxide (21-32) mmol/L Anion Gap (6-13) BUN (6-20) mg/dL Creatinine (0.4-1.0) mg/dL Estimated GFR (MDRD) (>89) Glucose (70-100) mg/dL Calcium (8.5-10.3) mg/dL Total Bilirubin (0.2-1.0) mg/dL AST (10-42) IU/L ALT (10-60) IU/L Alkaline Phosphatase (42-121) IU/L Troponin I (<0.49) ng/mL Total Protein (6.7-8.2) g/dL Albumin (3.2-5.5) g/dL Globulin (2.1-4.2) g/dL Albumin/Globulin Ratio (1.0-2.2) ABX Reporting Has patient been on IV antibiotics over the past 48 hours?: Yes Sepsis Event Note (H) - Evaluation Current Stage of Sepsis: Ruled out Assessment/Plan - Problem List (1) Fracture of femoral neck, left Impression: 04/27 day one status post of operation continue pain control continue PT/OT followup orthopedics surgeon pt is planned to have surgery today, will follow up after operation continue pain control continue PT/OT (2) Fall advise pt for fall precaution (3) UTI (urinary tract infection) Continue IV rocephin, cultures are pending. (4) Nausea stable today, continue antiemosis PRN (5) Paroxysmal atrial fibrillation 04/27 pt's HR is 104, pt denies any palpitation. pt missed dosage of Metoprolol continue metoprolol continue tele, vital monitor resume Eliquis stable, Continue tele, echo review EF 70%, HOLD blood thinner Elipquis until after surgery. (6) Pulmonary hypertension, moderate to severe Impression: stable, echo results show elevated right heart pressures with an RVSP at rest of 65 mmHg. continue O2 supplement as needed, pt has O2 supplement at home (7) chest pain 04/27 pt report she had left lower midsternal chest pain. Palpitation on the location can cause her more chest pain. but troponin increase to 0.14. EKG does not indicate to have acute [place] resume pt's home Eliquis add Aspirin 325 mg PRN nitro continue serial troponin Morphine PRN (8) hypoxia 04/27 pt present chest pain, some SOB and hypoxia CXR and CTA of chest, will followup supplement O2 as needed Duoneb PRN Qualifiers: Encounter type: initial encounter Fracture type: closed Qualified Code(s): S72.002A - Fracture of unspecified part of neck of left femur, initial encounter for closed fracture
[2018-04-28] MEDS: ACETAMINOPHEN 325 MG TABLET PO PRN ×2 (02:22→21:16)
[2018-04-28] MEDS: NITROGLYCERIN SL 0.4 MG TABLET SL PRN ×3 (02:59→03:14)
[2018-04-28] MEDS ORDERED: KETOROLAC 30 MG/ML VIAL IVP PRN (03:36)
[2018-04-28] MEDS: SODIUM CHLORIDE FLUSH 0.9% 10 ML SYRINGE IVP PRN ×5 (04:05→13:57)
[2018-04-28] MEDS: KETOROLAC 30 MG/ML VIAL IVP PRN ×2 (04:05→23:33)
[2018-04-28] MEDS: CEFEPIME 1 GM in SODIUM CHLORIDE 0.9% MINIBAG 100 ML IV SCH ×3 (05:06→21:15)
[2018-04-28 05:10] LABS: BASOPHILS % (AUTO) 0.6 %; EOSINOPHILS # (AUTO) 0.3 10^3/uL (0.0-0.7); EOSINOPHILS % (AUTO) 4.4 %; HGB - HEMOGLOBIN 11.3 g/dL (12.0-16.0); LYMPHOCYTES # (AUTO) 0.9 10^3/uL (1.5-3.5); LYMPHOCYTES % (AUTO) 11.4 %; MEAN CORPUSCULAR HEMOGLOBIN 33.6 pg (27.0-31.0); MEAN CORPUSCULAR HGB CONC 33.3 g/dL (32.0-36.0); MEAN CORPUSCULAR VOLUME 100.8 fL (81.0-99.0); MEAN PLATELET VOLUME 7.1 fL (7.9-10.8); MONOCYTES # (AUTO) 1.4 10^3/uL (0.0-1.0); MONOCYTES % (AUTO) 17.8 %; NEUTROPHILS # (AUTO) 5.2 10^3/uL (1.5-6.6); NEUTROPHILS % (AUTO) 65.8 %; PLT - PLATELET COUNT 202 10^3/uL (130-450); RED BLOOD COUNT 3.36 10^6/uL (4.20-5.40); RED CELL DISTRIBUTION WIDTH 12.1 % (12.0-15.0); WHITE BLOOD COUNT 7.9 x10^3/uL (4.8-10.8)
[2018-04-28 05:43] LABS: ALBUMIN 3.1 g/dL (3.2-5.5); ALBUMIN/GLOBULIN RATIO 1.2 (1.0-2.2); BILIRUBIN,TOTAL 0.8 mg/dL (0.2-1.0); CALCIUM 8.3 mg/dL (8.5-10.3); CREATININE 0.4 mg/dL (0.4-1.0); TOTAL PROTEIN 5.7 g/dL (6.7-8.2)
[2018-04-28] MEDS: ALBUTEROL NEB 2.5 MG/3 ML INH PRN (07:36)
[2018-04-28] MEDS: FORMOTEROL FUMARATE NEB 20 MCG/2 ML INH SCH ×2 (07:36→20:03)
[2018-04-28] MEDS: BUDESONIDE 0.5 MG/2 ML NEB INH SCH ×2 (07:36→20:03)
[2018-04-28] MEDS: METOPROLOL SUCCINATE 25 MG TABLET PO SCH ×2 (08:00→16:43)
[2018-04-28] MEDS ORDERED: ASPIRIN 325 MG TABLET PO SCH (08:00)
[2018-04-28] MEDS: POLYETHYLENE GLYCOL 3350 17 GM PACKET PO SCH (08:02)
[2018-04-28] MEDS: SODIUM CHLORIDE FLUSH 0.9% 10 ML SYRINGE IVP SCH ×4 (08:02→23:37)
[2018-04-28] MEDS: APIXABAN 2.5 MG TABLET PO SCH ×2 (08:02→21:16)
[2018-04-28] MEDS: HYDROcod/ACETAM 5/325 MG TABLET PO PRN ×2 (08:05→13:54)
--- NOTE | 2018-04-28 08:14 | PROVIDER PROGRESS NOTE ---
Subjective - General Admit Date: 04/24/18 Procedure Date: 04/26/18 Post Op Days: 2 Procedure Performed: In-situ pinning right hip - Review of Systems Wound/Incisions: positive: Dressing dry and intact General: positive: Fatigue Musculoskeletal: positive: Joint pain Objective - Patient Data Vital Signs: Vital Signs x48h Temp Pulse Pulse Resp BP BP Pulse Ox 04/28/18 07:54 36.7 C 109 H 18 162/95 H 97 04/28/18 07:45 90 20 04/28/18 05:11 36.8 C 100 20 149/79 H 98 04/28/18 03:27 36.7 C 115 H 24 115/65 97 04/28/18 03:14 115 H 111/67 04/28/18 03:09 103 H 134/70 H 04/28/18 02:59 89 145/90 H Intake & Output: Intake and Output Totals x24h 04/26/18 04/27/18 04/28/18 23:59 23:59 23:59 Intake Total 1919.3 2793.607 280 Output Total 250 1500 200 Balance 1669.3 1293.607 80 - Lab Results Lab Results: 04/28/18 04:50 04/28/18 04:50 Other Lab Results: Lab Results x24hrs 04/28/18 04/28/18 04/27/18 Range/Units 04:50 04:50 20:00 WBC 7.9 (4.8-10.8) x10^3/uL RBC 3.36 L (4.20-5.40) 10^6/uL Hgb 11.3 L (12.0-16.0) g/dL Hct 33.9 L (37.0-47.0) % MCV 100.8 H (81.0-99.0) fL MCH 33.6 H (27.0-31.0) pg MCHC 33.3 (32.0-36.0) g/dL RDW 12.1 (12.0-15.0) % Plt Count 202 (130-450) 10^3/uL MPV 7.1 L (7.9-10.8) fL Neut # (Auto) 5.2 (1.5-6.6) 10^3/uL Lymph # (Auto) 0.9 L (1.5-3.5) 10^3/uL [place] # (Auto) 1.4 H (0.0-1.0) 10^3/uL Eos # (Auto) 0.3 (0.0-0.7) 10^3/uL Baso # (Auto) 0.0 (0.0-0.1) 10^3/uL Absolute Nucleated RBC 0.00 x10^3/uL Nucleated RBC % 0.0 /100WBC Sodium 133 L (135-145) mmol/L Potassium 4.3 (3.5-5.0) mmol/L Chloride 98 L (101-111) mmol/L Carbon Dioxide 31 (21-32) mmol/L Anion Gap 4.0 L (6-13) BUN 11 (6-20) mg/dL Creatinine 0.4 (0.4-1.0) mg/dL Estimated GFR (MDRD) 154 (>89) Glucose 115 H (70-100) mg/dL Calcium 8.3 L (8.5-10.3) mg/dL Total Bilirubin 0.8 (0.2-1.0) mg/dL AST 50 H (10-42) IU/L ALT 68 H (10-60) IU/L Alkaline Phosphatase 106 (42-121) IU/L Troponin I 0.09 (<0.49) ng/mL Total Protein 5.7 L (6.7-8.2) g/dL Albumin 3.1 L (3.2-5.5) g/dL Globulin 2.6 (2.1-4.2) g/dL Albumin/Globulin Ratio 1.2 (1.0-2.2) 04/27/18 04/27/18 Range/Units 14:05 08:39 WBC (4.8-10.8) x10^3/uL RBC (4.20-5.40) 10^6/uL Hgb (12.0-16.0) g/dL Hct (37.0-47.0) % MCV (81.0-99.0) fL MCH (27.0-31.0) pg MCHC (32.0-36.0) g/dL RDW (12.0-15.0) % Plt Count (130-450) 10^3/uL MPV (7.9-10.8) fL Neut # (Auto) (1.5-6.6) 10^3/uL Lymph # (Auto) (1.5-3.5) 10^3/uL [place] # (Auto) (0.0-1.0) 10^3/uL Eos # (Auto) (0.0-0.7) 10^3/uL Baso # (Auto) (0.0-0.1) 10^3/uL Absolute Nucleated RBC x10^3/uL Nucleated RBC % /100WBC Sodium (135-145) mmol/L Potassium (3.5-5.0) mmol/L Chloride (101-111) mmol/L Carbon Dioxide (21-32) mmol/L Anion Gap (6-13) BUN (6-20) mg/dL Creatinine (0.4-1.0) mg/dL Estimated GFR (MDRD) (>89) Glucose (70-100) mg/dL Calcium (8.5-10.3) mg/dL Total Bilirubin (0.2-1.0) mg/dL AST (10-42) IU/L ALT (10-60) IU/L Alkaline Phosphatase (42-121) IU/L Troponin I 0.11 0.14 (<0.49) ng/mL Total Protein (6.7-8.2) g/dL Albumin (3.2-5.5) g/dL Globulin (2.1-4.2) g/dL Albumin/Globulin Ratio (1.0-2.2) - Current Medications Current Medications: Current Medications Generic Name Dose Route Start Last Admin Trade Name Freq PRN Reason Stop Dose Admin Acetaminophen 650 mg 04/24/18 20:20 04/28/18 02:22 Tylenol PO 650 mg Q4HR PRN Administration Pain 1 to 4 Hydrocodone Bitart/Acetaminophen 1 tab 04/24/18 20:20 04/28/18 08:05 [place] 5/325 PO 1 tab Q4HR PRN Administration Pain 5 to 7 Albuterol 2.5 mg 04/25/18 11:57 04/28/18 07:36 INH 2.5 mg RTQ4H PRN Administration Wheezing Apixaban 2.5 mg 04/27/18 10:00 04/28/18 08:02 Eliquis PO 2.5 mg BID [facility] Administration Aspirin 325 mg 04/28/18 08:00 04/28/18 08:00 Nirmala PO 04/28/18 10:00 325 mg ONCE [facility] Administration Budesonide 0.5 mg 04/25/18 19:00 04/28/18 07:36 Pulmicort INH 0.5 mg RTBID [facility] Administration Formoterol Fumarate 20 mcg 04/25/18 19:00 04/28/18 07:36 Perforomist INH 20 mcg RTBID [facility] Administration Cefepime HCl 1 gm/ Sodium 100 mls @ 200 mls/hr 04/27/18 14:00 04/28/18 05:56 Chloride IV Infused TID [facility] Infusion Ketorolac Tromethamine 15 mg 04/28/18 03:55 04/28/18 04:05 Toradol Inj (30mg) IVP 15 mg Q6HR PRN Administration PAIN Metoprolol Succinate 75 mg 04/28/18 08:00 04/28/18 08:00 Toprol Xl PO 75 mg BIDWM [facility] Administration Morphine Sulfate 2 mg 04/24/18 20:20 04/26/18 09:04 Morphine (Carpuject) IVP 2 mg Q2HR PRN Administration Pain 8 to 10 Nitroglycerin 0.4 mg 04/27/18 10:35 04/28/18 03:14 Nitrostat SL 0.4 mg Q5MIN PRN Administration Chest Pain Ondansetron HCl 4 mg 04/24/18 20:20 04/26/18 09:04 Zofran Inj IVP 4 mg Q6HR PRN Administration Nausea / Vomiting Pantoprazole Sodium 40 mg 04/25/18 07:00 04/27/18 08:18 Protonix PO 40 mg QDAC [facility] Administration Polyethylene Glycol 17 gm 04/25/18 09:00 04/28/18 08:02 Miralax PO Not Given DAILY [facility] Sodium Chloride 10 ml 04/24/18 20:20 04/28/18 05:57 Normal Saline Flush 0.9% IVP 10 ml PRN PRN Administration NEEDED PER PROVIDER ORDERS Sodium Chloride 10 ml 04/25/18 01:00 04/28/18 08:02 Normal Saline Flush 0.9% IVP 10 ml 0100,0900,1700 [facility] Administration
[2018-04-28] MEDS: guaiFENesin 600 MG TABLET PO SCH ×2 (09:57→21:16)
[2018-04-28] MEDS: DOCUSATE SODIUM 250 MG CAPSULE PO SCH (13:55)
[2018-04-28] MEDS: SENNA 8.6 MG TABLET PO SCH (13:55)
[2018-04-28] MEDS: IPRATROPIUM 0.2 MG/ML NEB INH SCH ×3 (14:59→20:03)
[2018-04-28] MEDS: LEVALBUTEROL 1.25 MG/3 ML NEB INH PRN (15:02)
--- NOTE | 2018-04-28 15:11 | PROVIDER PROGRESS NOTE ---
Subjective - Prog Note Date Prog Note Date: 04/28/18 - Subjective Pt reports feeling: Improved Subjective: pt is happy to eat her breakfast, it seems no distress. pt denies chest pain, fever, chill. Current Medications - Current Medications Current Medications: Active Medications Acetaminophen (Tylenol) 650 mg PO Q4HR PRN PRN Reason: Pain 1 to 4 Last Admin: 04/28/18 02:22 Dose: 650 mg Hydrocodone Bitart/Acetaminophen ([place] 5/325) 1 tab PO Q4HR PRN PRN Reason: Pain 5 to 7 Last Admin: 04/28/18 13:54 Dose: 1 tab Apixaban (Eliquis) 2.5 mg PO BID [facility] Last Admin: 04/28/18 08:02 Dose: 2.5 mg Budesonide (Pulmicort) 0.5 mg INH RTBID [facility] Last Admin: 04/28/18 07:36 Dose: 0.5 mg Docusate Sodium (Colace 250mg Capsule) 250 - 500 mg PO DAILY [facility] Last Admin: 04/28/18 13:55 Dose: Not Given Formoterol Fumarate (Perforomist) 20 mcg INH RTBID [facility] Last Admin: 04/28/18 07:36 Dose: 20 mcg Guaifenesin (Mucinex) 600 mg PO BID [facility] Last Admin: 04/28/18 09:57 Dose: 600 mg Cefepime HCl 1 gm/ Sodium (Chloride) 100 mls @ 200 mls/hr IV TID [facility] Last Infusion: 04/28/18 14:36 Dose: Infused Ipratropium [place] (Atrovent) 0.5 mg INH RTQ4H [facility] Last Admin: 04/28/18 15:01 Dose: 0.5 mg Ketorolac Tromethamine (Toradol Inj (30mg)) 15 mg IVP Q6HR PRN PRN Reason: PAIN Last Admin: 04/28/18 04:05 Dose: 15 mg Levalbuterol HCl (Xopenex) 1.25 mg INH Q4H PRN PRN Reason: Shortness of Air/Wheezing Last Admin: 04/28/18 15:02 Dose: 1.25 mg Metoprolol Succinate (Toprol Xl) 75 mg PO BIDWM [facility] Last Admin: 04/28/18 08:00 Dose: 75 mg Morphine Sulfate (Morphine (Carpuject)) 2 mg IVP Q2HR PRN PRN Reason: Pain 8 to 10 Last Admin: 04/26/18 09:04 Dose: 2 mg Nitroglycerin (Nitrostat) 0.4 mg SL Q5MIN PRN PRN Reason: Chest Pain Last Admin: 04/28/18 03:14 Dose: 0.4 mg Ondansetron HCl (Zofran Inj) 4 mg IVP Q6HR PRN PRN Reason: Nausea / Vomiting Last Admin: 04/26/18 09:04 Dose: 4 mg Pantoprazole Sodium (Protonix) 40 mg PO QDAC [facility] Last Admin: 04/27/18 08:18 Dose: 40 mg Polyethylene Glycol (Miralax) 17 gm PO DAILY [facility] Last Admin: 04/28/18 08:02 Dose: Not Given Senna (Senokot) 8.6 - 17.2 mg PO DAILY [facility] Last Admin: 04/28/18 13:55 Dose: Not Given Sodium Chloride (Normal Saline Flush 0.9%) 10 ml IVP PRN PRN PRN Reason: NEEDED PER PROVIDER ORDERS Last Admin: 04/28/18 13:57 Dose: 10 ml Sodium Chloride (Normal Saline Flush 0.9%) 10 ml IVP 0100,0900,1700 [facility] Last Admin: 04/28/18 08:02 Dose: 10 ml Albuterol Sulfate [Proair Hfa Inhaler] 2 puffs INH Q4H PRN 04/25/18 Apixaban [Eliquis] 2.5 mg PO BID 04/25/18 Fluticasone/Salmeterol [Advair 250-50 Diskus] 1 puffs INH BID 04/25/18 Lisinopril 20 mg PO DAILY 04/25/18 Objective - Vital Signs/Intake & Output Vital Signs: Vital Signs x48h Temp Pulse Pulse Pulse Resp BP Pulse Ox 04/28/18 11:50 36.6 C 100 100 16 138/91 H 100 04/28/18 07:54 36.7 C 109 H 18 162/95 H 97 04/28/18 07:45 90 20 Intake & Output: Intake & Output 04/25/18 04/26/18 04/27/18 04/28/18 23:59 23:59 23:59 23:59 Intake Total 1886 1919.3 2793.607 740 Output Total 701 445 7836 350 Balance 1436 1669.3 1293.607 390 - Objective General Appearance: positive: No acute distress, Alert. negative: Lethargic Eyes Bilateral: positive: Normal inspection, PERRL, No lid inflammation, Conjunctivae nml ENT: positive: ENT inspection nml, Pharynx nml, No signs of dehydration. negative: Purulent nasal drainage, Pharyngeal erythema, Oral lesions Neck: positive: Nml inspection, Thyroid nml, No JVD, Trachea midline. negative: Thyromegaly, Lymphadenopathy (R), Lymphadenopathy (L), Stiff neck, Swelling/bruising, Tracheal deviation Respiratory: positive: Chest non-tender, No respiratory distress. negative: Wheezes, Rales, Rhonchi Cardiovascular: positive: Regular rate & rhythm, No murmur, No gallop. negative: Irregularly irregular, Extrasystoles, Tachycardia, Bradycardia, JVD present, Systolic murmur, Diastolic murmur Peripheral Pulses: 2+ Radial (R), 2+ Radial (L), 2+ Dorsalis pedis (R), 2+ Dorsalis pedis (L) Abdomen: positive: Non-tender, No organomegaly, Nml bowel sounds, No distention. negative: Tenderness, Guarding, Rebound Back: positive: Nml inspection. negative: CVA tenderness (R), CVA tenderness (L) Skin: positive: Color nml, No rash, Warm, Dry. negative: Cyanosis, Diaphoresis, Pallor Extremities: positive: Non-tender, Nml appearance. negative: Calf tenderness, Joint swelling, Vick's sign/cords Neurologic/Psychiatric: positive: Sensation nml, Mood/affect nml. negative: Weakness, Sensory loss, Facial droop, Slurred/abnml speech, Depressed mood/affect - Lab Results Fish Bones: 04/28/18 04:50 04/28/18 04:50 Other Labs: Lab Results x24hrs 04/28/18 04/28/18 04/27/18 Range/Units 04:50 04:50 20:00 WBC 7.9 (4.8-10.8) x10^3/uL RBC 3.36 L (4.20-5.40) 10^6/uL Hgb 11.3 L (12.0-16.0) g/dL Hct 33.9 L (37.0-47.0) % MCV 100.8 H (81.0-99.0) fL MCH 33.6 H (27.0-31.0) pg MCHC 33.3 (32.0-36.0) g/dL RDW 12.1 (12.0-15.0) % Plt Count 202 (130-450) 10^3/uL MPV 7.1 L (7.9-10.8) fL Neut # (Auto) 5.2 (1.5-6.6) 10^3/uL Lymph # (Auto) 0.9 L (1.5-3.5) 10^3/uL [place] # (Auto) 1.4 H (0.0-1.0) 10^3/uL Eos # (Auto) 0.3 (0.0-0.7) 10^3/uL Baso # (Auto) 0.0 (0.0-0.1) 10^3/uL Absolute Nucleated RBC 0.00 x10^3/uL Nucleated RBC % 0.0 /100WBC Sodium 133 L (135-145) mmol/L Potassium 4.3 (3.5-5.0) mmol/L Chloride 98 L (101-111) mmol/L Carbon Dioxide 31 (21-32) mmol/L Anion Gap 4.0 L (6-13) BUN 11 (6-20) mg/dL Creatinine 0.4 (0.4-1.0) mg/dL Estimated GFR (MDRD) 154 (>89) Glucose 115 H (70-100) mg/dL Calcium 8.3 L (8.5-10.3) mg/dL Total Bilirubin 0.8 (0.2-1.0) mg/dL AST 50 H (10-42) IU/L ALT 68 H (10-60) IU/L Alkaline Phosphatase 106 (42-121) IU/L Troponin I 0.09 (<0.49) ng/mL Total Protein 5.7 L (6.7-8.2) g/dL Albumin 3.1 L (3.2-5.5) g/dL Globulin 2.6 (2.1-4.2) g/dL Albumin/Globulin Ratio 1.2 (1.0-2.2) ABX Reporting Has patient been on IV antibiotics over the past 48 hours?: Yes Sepsis Event Note (H) - Evaluation Current Stage of Sepsis: Ruled out Assessment/Plan - Problem List (1) Fracture of femoral neck, left Impression: 04/28 this is day second status post of operation continue pain control continue PT/OT followup orthopedics surgeon 04/27 day one status post of operation continue pain control continue PT/OT followup orthopedics surgeon pt is planned to have surgery today, will follow up after operation continue pain control continue PT/OT (2) Fall advise pt for fall precaution (3) UTI (urinary tract infection) UA is negative. pt is prescribed Cefepime for pneumonia Continue IV rocephin, cultures are pending. (4) Nausea stable today, continue antiemosis PRN (5) Paroxysmal atrial fibrillation 04/28, pause is 100, stable now. increase Metoprolol from 50 mg bid to 75mg bid 04/27 pt's HR is 104, pt denies any palpitation. pt missed dosage of Metoprolol continue metoprolol continue tele, vital monitor resume Eliquis stable, Continue tele, echo review EF 70%, HOLD blood thinner Elipquis until after surgery. (6) Pulmonary hypertension, moderate to severe Impression: stable, echo results show elevated right heart pressures with an RVSP at rest of 65 mmHg. continue O2 supplement as needed, pt has O2 supplement at home (7) chest pain 04/28 pt denies more chest pain, Troponin is down to 0.09 from 0.14 continue Eliquis PRN Nitro and Morphine pt is advise to followup car whacker to have stress test as out-pt 04/27 pt report she had left lower midsternal chest pain. Palpitation on the location can cause her more chest pain. but troponin increase to 0.14. EKG does not indicate to have acute [place] resume pt's home Eliquis add Aspirin 325 mg PRN nitro continue serial troponin Morphine PRN (8) pneumonia with hypoxia 04/28, CTA indicate pt has pneumonia, pt present respiratory distress. continue treatment with Cefepime continue with vital and lab monitor continue O2 supplement as needed change to XOpenex and Ipr for INH PRN 04/27 pt present chest pain, some SOB and hypoxia CXR and CTA of chest, will followup supplement O2 as needed Duoneb PRN Qualifiers: Encounter type: initial encounter Fracture type: closed Qualified Code(s): S72.002A - Fracture of unspecified part of neck of left femur, initial encounter for closed fracture
[2018-04-28 16:22] LABS: VBG PH 7.343 (7.31-7.41); VBG PO2 32.2 mmHg (25-47); VBG TOTAL CO2 34.3 mmol/L (24-29)
[2018-04-29] MEDS: NITROGLYCERIN SL 0.4 MG TABLET SL PRN (05:02)
[2018-04-29] MEDS: KETOROLAC 30 MG/ML VIAL IVP PRN (05:22)
[2018-04-29] MEDS: SODIUM CHLORIDE FLUSH 0.9% 10 ML SYRINGE IVP PRN ×8 (05:22→22:01)
[2018-04-29] MEDS: CEFEPIME 1 GM in SODIUM CHLORIDE 0.9% MINIBAG 100 ML IV SCH ×3 (05:23→22:00)
[2018-04-29] MEDS: IPRATROPIUM 0.2 MG/ML NEB INH SCH ×4 (07:47→20:04)
[2018-04-29] MEDS: FORMOTEROL FUMARATE NEB 20 MCG/2 ML INH SCH ×2 (07:47→20:04)
[2018-04-29] MEDS: BUDESONIDE 0.5 MG/2 ML NEB INH SCH ×2 (07:47→20:04)
[2018-04-29] MEDS: LEVALBUTEROL 1.25 MG/3 ML NEB INH PRN (07:53)
[2018-04-29 08:29] LABS: BASOPHILS # (AUTO) 0.1 10^3/uL (0.0-0.1); BASOPHILS % (AUTO) 0.9 %; EOSINOPHILS # (AUTO) 0.3 10^3/uL (0.0-0.7); EOSINOPHILS % (AUTO) 3.2 %; HGB - HEMOGLOBIN 12.4 g/dL (12.0-16.0); LYMPHOCYTES # (AUTO) 1.4 10^3/uL (1.5-3.5); LYMPHOCYTES % (AUTO) 12.9 %; MEAN CORPUSCULAR HEMOGLOBIN 33.8 pg (27.0-31.0); MEAN CORPUSCULAR HGB CONC 34.6 g/dL (32.0-36.0); MEAN CORPUSCULAR VOLUME 97.9 fL (81.0-99.0); MEAN PLATELET VOLUME 6.8 fL (7.9-10.8); MONOCYTES # (AUTO) 1.5 10^3/uL (0.0-1.0); MONOCYTES % (AUTO) 14.4 %; NEUTROPHILS # (AUTO) 7.2 10^3/uL (1.5-6.6); NEUTROPHILS % (AUTO) 68.6 %; PLT - PLATELET COUNT 280 10^3/uL (130-450); RED BLOOD COUNT 3.65 10^6/uL (4.20-5.40); WHITE BLOOD COUNT 10.5 x10^3/uL (4.8-10.8)
[2018-04-29] MEDS ORDERED: METOPROLOL 5 MG/5 ML VIAL IVP ONE ×2 (08:33→09:00)
[2018-04-29] MEDS: MORPHINE 2 MG/ML CARPUJECT IVP PRN (08:35)
[2018-04-29] MEDS ORDERED: FUROSEMIDE 20 MG/2 ML VIAL IVP SCH (09:00)
[2018-04-29] MEDS ORDERED: ASPIRIN 325 MG TABLET PO SCH (09:00)
[2018-04-29] MEDS: SODIUM CHLORIDE FLUSH 0.9% 10 ML SYRINGE IVP SCH ×2 (09:03→16:00)
[2018-04-29] MEDS: METOPROLOL SUCCINATE 50 MG TABLET PO SCH ×2 (09:04→16:53)
[2018-04-29] MEDS: APIXABAN 2.5 MG TABLET PO SCH ×2 (09:04→21:59)
[2018-04-29] MEDS: guaiFENesin 600 MG TABLET PO SCH ×2 (09:05→21:59)
[2018-04-29 09:10] LABS: ALBUMIN 3.6 g/dL (3.2-5.5); ALBUMIN/GLOBULIN RATIO 1.3 (1.0-2.2); BILIRUBIN,TOTAL 0.5 mg/dL (0.2-1.0); CALCIUM 8.7 mg/dL (8.5-10.3); CREATININE 0.3 mg/dL (0.4-1.0); TOTAL PROTEIN 6.4 g/dL (6.7-8.2)
[2018-04-29] MEDS: methylPREDNISolone SUCCINATE 40 MG/ML VIAL IVP SCH ×2 (09:13→14:19)
--- NOTE | 2018-04-29 09:35 | XRAY Report ---
Reason: SOB Procedure Date: 04/29/2018 Accession Number: [id number] / [id number] Procedure: XR - Chest 1 View X-Ray CPT Code: 39879 FULL RESULT: EXAM: CHEST RADIOGRAPHY EXAM DATE: 04/29/2018 09:04 AM. CLINICAL HISTORY: Shortness of breath. Rapid heart rate. COMPARISON: 04/27/2018. TECHNIQUE: 1 view. FINDINGS: Lungs/Pleura: Similar diffuse interstitial prominence. Increased hazy opacification of bilateral bases compatible with small pleural effusions and atelectasis. Cannot exclude patchy left retrocardiac infiltrate. No pneumothorax. Mediastinum: No cardiomegaly. Stable mildly tortuous aorta. Other: No acute fracture evident. IMPRESSION: 1. Increased small bilateral pleural effusions. 2. Patchy left basilar atelectasis or infiltrate. 3. Stable bilateral interstitial prominence. 4. No cardiomegaly. RADIA
[2018-04-29 09:37] LABS: ABG PH 7.35 (7.35-7.45)
[2018-04-29 09:38] LABS: ABG BASE EXCESS 5.1 mmol/L (-2.0-3.0); ABG HCO3 32.4 mmol/L (22.0-26.0); ABG OXYGEN SATURATION 98 % (94-98); ABG TCO2 34.3 MMOL/L (21.0-29.0); ALLEN TEST POSITIVE
[2018-04-29 09:41] LABS: ABG PCO2 61 mmHg (34-45)
[2018-04-29] MEDS: DOCUSATE SODIUM 250 MG CAPSULE PO SCH (10:21)
[2018-04-29] MEDS: POLYETHYLENE GLYCOL 3350 17 GM PACKET PO SCH (10:21)
[2018-04-29] MEDS: MULTIVITAMIN W/MINERALS TABLET PO SCH (10:22)
[2018-04-29] MEDS: SENNA 8.6 MG TABLET PO SCH (10:22)
[2018-04-29] MEDS ORDERED: cloNIDine 0.1 MG TABLET PO PRN (10:29)
[2018-04-29] MEDS ORDERED: IBUPROFEN 400 MG TABLET PO PRN (10:32)
--- NOTE | 2018-04-29 10:46 | PROVIDER PROGRESS NOTE ---
Subjective - General Admit Date: 04/24/18 Procedure Date: 04/26/18 Post Op Days: 6 Procedure Performed: In-situ pinning right hip - Review of Systems Wound/Incisions: positive: Healing well General: positive: Fatigue Musculoskeletal: positive: Joint pain Objective - Patient Data Reviewed Vital Signs: Yes Vital Signs: Vital Signs x48h Temp Pulse Pulse Pulse Resp BP BP 04/29/18 10:34 125 H 04/29/18 10:10 20 04/29/18 09:55 114 H 20 04/29/18 09:40 108 H 22 04/29/18 09:25 107 H 20 04/29/18 09:10 36.1 C L 112 H 20 04/29/18 09:00 35.7 C L 120 H 20 04/29/18 08:55 110 H 160 H 04/29/18 08:50 160/102 H 04/29/18 08:45 160 H 30 H 04/29/18 07:47 140 H 24 04/29/18 05:41 04/29/18 05:36 117 H 22 04/29/18 05:02 100 154/111 H 04/29/18 04:42 36.6 C 104 H 18 199/92 H BP Pulse Ox 04/29/18 10:34 158/108 H 99 04/29/18 10:10 153/114 H 100 04/29/18 09:55 162/112 H 99 04/29/18 09:40 158/94 H 98 04/29/18 09:25 165/96 H 99 04/29/18 09:10 140/96 H 98 04/29/18 09:00 150/80 H 100 04/29/18 08:55 160/100 H 04/29/18 08:50 04/29/18 08:45 180/130 H 04/29/18 07:47 04/29/18 05:41 94 04/29/18 05:36 156/97 H 92 04/29/18 05:02 04/29/18 04:42 94 Intake & Output: Intake and Output Totals x24h 04/27/18 04/28/18 04/29/18 23:59 23:59 23:59 Intake Total 2793.607 1380 100 Output Total 0942 590 3219 Balance 1293.607 930 -1000 - Lab Results Lab Results: 05/02/18 05:57 05/02/18 05:57 Other Lab Results: Lab Results x24hrs 04/29/18 04/29/18 04/29/18 Range/Units 08:56 08:23 08:23 WBC 10.5 (4.8-10.8) x10^3/uL RBC 3.65 L (4.20-5.40) 10^6/uL Hgb 12.4 (12.0-16.0) g/dL Hct 35.7 L (37.0-47.0) % MCV 97.9 (81.0-99.0) fL MCH 33.8 H (27.0-31.0) pg MCHC 34.6 (32.0-36.0) g/dL RDW 12.0 (12.0-15.0) % Plt Count 280 (130-450) 10^3/uL MPV 6.8 L (7.9-10.8) fL Neut # (Auto) 7.2 H (1.5-6.6) 10^3/uL Lymph # (Auto) 1.4 L (1.5-3.5) 10^3/uL [place] # (Auto) 1.5 H (0.0-1.0) 10^3/uL Eos # (Auto) 0.3 (0.0-0.7) 10^3/uL Baso # (Auto) 0.1 (0.0-0.1) 10^3/uL Absolute Nucleated RBC 0.00 x10^3/uL Nucleated RBC % 0.0 /100WBC Bld Gas Analysis Time 08:56 Sample Site RIGHT RADIAL ABG pH 7.35 (7.35-7.45) ABG pCO2 61 H* (34-45) mmHg ABG pO2 [employer] ABG HCO3 32.4 H (22.0-26.0) mmol/L ABG Total CO2 34.3 H (21.0-29.0) MMOL/L ABG O2 Saturation 98 (94-98) % ABG Oximetry Spot Check 94 % ABG Base Excess 5.1 H (-2.0-3.0) mmol/L Loki Test POSITIVE VBG pH (7.31-7.41) VBG pCO2 (41-51) mmHg VBG pO2 (25-47) mmHg VBG HCO3 (23-28) mmol/L VBG Total CO2 (24-29) mmol/L VBG O2 Saturation (60-80) % VBG Base Excess (-2 - +2) mmol/L O2 Delivery Device OXYMASK O2 Liters/Min 5.00 LPM Sodium 132 L (135-145) mmol/L Potassium 4.5 (3.5-5.0) mmol/L Chloride 95 L (101-111) mmol/L Carbon Dioxide 31 (21-32) mmol/L Anion Gap 6.0 (6-13) BUN 13 (6-20) mg/dL Creatinine 0.3 L (0.4-1.0) mg/dL Estimated GFR (MDRD) 214 (>89) Glucose 124 H (70-100) mg/dL Calcium 8.7 (8.5-10.3) mg/dL Total Bilirubin 0.5 (0.2-1.0) mg/dL AST 56 H (10-42) IU/L ALT 88 H (10-60) IU/L Alkaline Phosphatase 154 H (42-121) IU/L Troponin I (<0.49) ng/mL Total Protein 6.4 L (6.7-8.2) g/dL Albumin 3.6 (3.2-5.5) g/dL Globulin 2.8 (2.1-4.2) g/dL Albumin/Globulin Ratio 1.3 (1.0-2.2) 04/29/18 04/28/18 04/28/18 Range/Units 08:23 15:38 15:38 WBC (4.8-10.8) x10^3/uL RBC (4.20-5.40) 10^6/uL Hgb (12.0-16.0) g/dL Hct (37.0-47.0) % MCV (81.0-99.0) fL MCH (27.0-31.0) pg MCHC (32.0-36.0) g/dL RDW (12.0-15.0) % Plt Count (130-450) 10^3/uL MPV (7.9-10.8) fL Neut # (Auto) (1.5-6.6) 10^3/uL Lymph # (Auto) (1.5-3.5) 10^3/uL [place] # (Auto) (0.0-1.0) 10^3/uL Eos # (Auto) (0.0-0.7) 10^3/uL Baso # (Auto) (0.0-0.1) 10^3/uL Absolute Nucleated RBC x10^3/uL Nucleated RBC % /100WBC Bld Gas Analysis Time Sample Site ABG pH (7.35-7.45) ABG pCO2 (34-45) mmHg ABG pO2 ABG HCO3 (22.0-26.0) mmol/L ABG Total CO2 (21.0-29.0) MMOL/L ABG O2 Saturation (94-98) % ABG Oximetry Spot Check % ABG Base Excess (-2.0-3.0) mmol/L Loki Test VBG pH 7.343 (7.31-7.41) VBG pCO2 61.0 H (41-51) mmHg VBG pO2 32.2 (25-47) mmHg VBG HCO3 32.4 H (23-28) mmol/L VBG Total CO2 34.3 H (24-29) mmol/L VBG O2 Saturation 66.1 (60-80) % VBG Base Excess 5.0 H (-2 - +2) mmol/L O2 Delivery Device O2 Liters/Min LPM Sodium (135-145) mmol/L Potassium (3.5-5.0) mmol/L Chloride (101-111) mmol/L Carbon Dioxide (21-32) mmol/L Anion Gap (6-13) BUN (6-20) mg/dL Creatinine (0.4-1.0) mg/dL Estimated GFR (MDRD) (>89) Glucose (70-100) mg/dL Calcium (8.5-10.3) mg/dL Total Bilirubin (0.2-1.0) mg/dL AST (10-42) IU/L ALT (10-60) IU/L Alkaline Phosphatase (42-121) IU/L Troponin I 0.04 0.06 (<0.49) ng/mL Total Protein (6.7-8.2) g/dL Albumin (3.2-5.5) g/dL Globulin (2.1-4.2) g/dL Albumin/Globulin Ratio (1.0-2.2) - Current Medications Current Medications: Current Medications Generic Name Dose Route Start Last Admin Trade Name Freq PRN Reason Stop Dose Admin Acetaminophen 650 mg 04/24/18 20:20 04/28/18 21:16 Tylenol PO 650 mg Q4HR PRN Administration Pain 1 to 4 Apixaban 2.5 mg 04/27/18 10:00 04/29/18 09:04 Eliquis PO 2.5 mg BID MANUEL Administration Aspirin 325 mg 04/29/18 09:00 04/29/18 10:21 Nirmala PO 325 mg DAILYWM MANUEL Administration Budesonide 0.5 mg 04/25/18 19:00 04/29/18 07:47 Pulmicort INH 0.5 mg RTBID MANUEL Administration Docusate Sodium 250 - 500 mg 04/28/18 12:00 04/29/18 10:21 Colace 250mg Capsule PO 250 mg DAILY MANUEL Administration Formoterol Fumarate 20 mcg 04/25/18 19:00 04/29/18 07:47 Perforomist INH 20 mcg RTBID MANUEL Administration Furosemide 20 mg 04/29/18 09:00 04/29/18 09:13 Lasix Inj 20mg Vial IVP 20 mg DAILY MANUEL Administration Guaifenesin 600 mg 04/28/18 09:00 04/29/18 09:05 Mucinex PO 600 mg BID MANUEL Administration Cefepime HCl 1 gm/ Sodium 100 mls @ 200 mls/hr 04/27/18 14:00 04/29/18 05:55 Chloride IV Infused TID MANUEL Infusion Ipratropium [place] 0.5 mg 04/28/18 09:45 04/29/18 07:47 Atrovent INH 0.5 mg RTQ4H MANUEL Administration Levalbuterol HCl 1.25 mg 04/28/18 08:38 04/29/18 07:53 Xopenex INH 1.25 mg Q4H PRN Administration Shortness of Air/Wheezing Methylprednisolone 30 mg 04/29/18 09:00 04/29/18 09:13 Solu-Medrol (40mg Vial) IVP 30 mg TID MANUEL Administration Metoprolol Succinate 100 mg 04/29/18 09:00 04/29/18 09:04 Toprol Xl PO 100 mg BIDWM MANUEL Administration Morphine Sulfate 2 mg 04/24/18 20:20 11/30/18 08:35 Morphine (Carpuject) IVP 2 mg Q2HR PRN Administration Pain 8 to 10 Multivitamins/Minerals 1 tab 04/29/18 09:00 04/29/18 10:22 Theragran M PO 1 tab DAILYWM MANUEL Administration Nitroglycerin 0.4 mg 04/27/18 10:35 04/29/18 05:02 Nitrostat SL 0.4 mg Q5MIN PRN Administration Chest Pain Ondansetron HCl 4 mg 04/24/18 20:20 04/26/18 09:04 Zofran Inj IVP 4 mg Q6HR PRN Administration Nausea / Vomiting Pantoprazole Sodium 40 mg 04/25/18 07:00 04/27/18 08:18 Protonix PO 40 mg QDAC MANUEL Administration Polyethylene Glycol 17 gm 04/25/18 09:00 04/29/18 10:21 Miralax PO 17 gm DAILY MANUEL Administration Senna 8.6 - 17.2 mg 04/28/18 12:00 04/29/18 10:22 Senokot PO 8.6 mg DAILY MANUEL Administration Sodium Chloride 10 ml 04/24/18 20:20 04/29/18 09:03 Normal Saline Flush 0.9% IVP 10 ml PRN PRN Administration NEEDED PER PROVIDER ORDERS Sodium Chloride 10 ml 04/25/18 01:00 04/29/18 09:03 Normal Saline Flush 0.9% IVP 10 ml 0100,0900,1700 MANUEL Administration - Physical Exam Wound/Incisions: positive: Healing well General Appearance: positive: No acute distress Extremities: positive: Joint swelling Neurologic/Psychiatric: positive: Motor nml, Sensation nml, Mood/affect nml Impression/Plan - Problem List Problem List: POD #3 Have discussed plans for SNF with patient and hospitalist Pt is to have Ortho f/u in 2 wks for staple removal She is to continue present PT as SNF patient Wound is to be clean and dry and with silver dressing left in place.
[2018-04-29] MEDS ORDERED: LISINOPRIL 5 MG TABLET PO SCH (11:00)
--- NOTE | 2018-04-29 13:33 | PROVIDER PROGRESS NOTE ---
Subjective - Prog Note Date Prog Note Date: 04/29/18 - Subjective Pt reports feeling: No change Objective - Vital Signs/Intake & Output Vital Signs: Vital Signs x48h Temp Pulse Pulse Pulse Resp BP BP 04/29/18 12:53 36.6 C 116 H 22 149/80 H 04/29/18 12:00 135 H 24 04/29/18 10:56 168/110 H 04/29/18 10:34 125 H 158/108 H 04/29/18 10:10 117 H 20 153/114 H 04/29/18 09:55 114 H 20 162/112 H 04/29/18 09:40 108 H 22 158/94 H 04/29/18 09:25 107 H 20 165/96 H 04/29/18 09:10 36.1 C L 112 H 20 140/96 H 04/29/18 09:00 35.7 C L 114 H 20 150/80 H 04/29/18 08:55 110 H 160 H 160/100 H 04/29/18 08:50 160/102 H 04/29/18 08:45 160 H 30 H 180/130 H 04/29/18 08:10 135 H 30 H 180/130 H 04/29/18 07:47 140 H 24 04/29/18 05:41 04/29/18 05:36 117 H 22 156/97 H Pulse Ox 04/29/18 12:53 91 L 04/29/18 12:00 04/29/18 10:56 04/29/18 10:34 99 04/29/18 10:10 100 04/29/18 09:55 99 04/29/18 09:40 98 04/29/18 09:25 99 04/29/18 09:10 98 04/29/18 09:00 100 04/29/18 08:55 04/29/18 08:50 04/29/18 08:45 04/29/18 08:10 04/29/18 07:47 04/29/18 05:41 94 04/29/18 05:36 92 Intake & Output: Intake & Output 04/26/18 04/27/18 04/28/18 04/29/18 23:59 23:59 23:59 23:59 Intake Total 1919.3 2793.607 1380 100 Output Total 250 6040 509 5462 Balance 1669.3 1293.607 930 -1150 - Lab Results Fish Bones: 04/29/18 08:23 04/29/18 08:23 Other Labs: Lab Results x24hrs 04/29/18 04/29/18 04/29/18 Range/Units 08:56 08:23 08:23 WBC 10.5 (4.8-10.8) x10^3/uL RBC 3.65 L (4.20-5.40) 10^6/uL Hgb 12.4 (12.0-16.0) g/dL Hct 35.7 L (37.0-47.0) % MCV 97.9 (81.0-99.0) fL MCH 33.8 H (27.0-31.0) pg MCHC 34.6 (32.0-36.0) g/dL RDW 12.0 (12.0-15.0) % Plt Count 280 (130-450) 10^3/uL MPV 6.8 L (7.9-10.8) fL Neut # (Auto) 7.2 H (1.5-6.6) 10^3/uL Lymph # (Auto) 1.4 L (1.5-3.5) 10^3/uL [place] # (Auto) 1.5 H (0.0-1.0) 10^3/uL Eos # (Auto) 0.3 (0.0-0.7) 10^3/uL Baso # (Auto) 0.1 (0.0-0.1) 10^3/uL Absolute Nucleated RBC 0.00 x10^3/uL Nucleated RBC % 0.0 /100WBC Bld Gas Analysis Time 08:56 Sample Site RIGHT RADIAL ABG pH 7.35 (7.35-7.45) ABG pCO2 61 H* (34-45) mmHg ABG pO2 E[employer] EXPERT ABG HCO3 32.4 H (22.0-26.0) mmol/L ABG Total CO2 34.3 H (21.0-29.0) MMOL/L ABG O2 Saturation 98 (94-98) % ABG Oximetry Spot Check 94 % ABG Base Excess 5.1 H (-2.0-3.0) mmol/L Loki Test POSITIVE VBG pH (7.31-7.41) VBG pCO2 (41-51) mmHg VBG pO2 (25-47) mmHg VBG HCO3 (23-28) mmol/L VBG Total CO2 (24-29) mmol/L VBG O2 Saturation (60-80) % VBG Base Excess (-2 - +2) mmol/L O2 Delivery Device OXYMASK O2 Liters/Min 5.00 LPM Sodium 132 L (135-145) mmol/L Potassium 4.5 (3.5-5.0) mmol/L Chloride 95 L (101-111) mmol/L Carbon Dioxide 31 (21-32) mmol/L Anion Gap 6.0 (6-13) BUN 13 (6-20) mg/dL Creatinine 0.3 L (0.4-1.0) mg/dL Estimated GFR (MDRD) 214 (>89) Glucose 124 H (70-100) mg/dL Calcium 8.7 (8.5-10.3) mg/dL Total Bilirubin 0.5 (0.2-1.0) mg/dL AST 56 H (10-42) IU/L ALT 88 H (10-60) IU/L Alkaline Phosphatase 154 H (42-121) IU/L Troponin I (<0.49) ng/mL Total Protein 6.4 L (6.7-8.2) g/dL Albumin 3.6 (3.2-5.5) g/dL Globulin 2.8 (2.1-4.2) g/dL Albumin/Globulin Ratio 1.3 (1.0-2.2) 04/29/18 04/28/18 04/28/18 Range/Units 08:23 15:38 15:38 WBC (4.8-10.8) x10^3/uL RBC (4.20-5.40) 10^6/uL Hgb (12.0-16.0) g/dL Hct (37.0-47.0) % MCV (81.0-99.0) fL MCH (27.0-31.0) pg MCHC (32.0-36.0) g/dL RDW (12.0-15.0) % Plt Count (130-450) 10^3/uL MPV (7.9-10.8) fL Neut # (Auto) (1.5-6.6) 10^3/uL Lymph # (Auto) (1.5-3.5) 10^3/uL [place] # (Auto) (0.0-1.0) 10^3/uL Eos # (Auto) (0.0-0.7) 10^3/uL Baso # (Auto) (0.0-0.1) 10^3/uL Absolute Nucleated RBC x10^3/uL Nucleated RBC % /100WBC Bld Gas Analysis Time Sample Site ABG pH (7.35-7.45) ABG pCO2 (34-45) mmHg ABG pO2 ABG HCO3 (22.0-26.0) mmol/L ABG Total CO2 (21.0-29.0) MMOL/L ABG O2 Saturation (94-98) % ABG Oximetry Spot Check % ABG Base Excess (-2.0-3.0) mmol/L Loki Test VBG pH 7.343 (7.31-7.41) VBG pCO2 61.0 H (41-51) mmHg VBG pO2 32.2 (25-47) mmHg VBG HCO3 32.4 H (23-28) mmol/L VBG Total CO2 34.3 H (24-29) mmol/L VBG O2 Saturation 66.1 (60-80) % VBG Base Excess 5.0 H (-2 - +2) mmol/L O2 Delivery Device O2 Liters/Min LPM Sodium (135-145) mmol/L Potassium (3.5-5.0) mmol/L Chloride (101-111) mmol/L Carbon Dioxide (21-32) mmol/L Anion Gap (6-13) BUN (6-20) mg/dL Creatinine (0.4-1.0) mg/dL Estimated GFR (MDRD) (>89) Glucose (70-100) mg/dL Calcium (8.5-10.3) mg/dL Total Bilirubin (0.2-1.0) mg/dL AST (10-42) IU/L ALT (10-60) IU/L Alkaline Phosphatase (42-121) IU/L Troponin I 0.04 0.06 (<0.49) ng/mL Total Protein (6.7-8.2) g/dL Albumin (3.2-5.5) g/dL Globulin (2.1-4.2) g/dL Albumin/Globulin Ratio (1.0-2.2) Sepsis Event Note (H) - Evaluation Current Stage of Sepsis: Ruled out Assessment/Plan - Problem List (1) Fracture of femoral neck, left Impression: 04/29 continue with PT/OT, pain control, follow up orthopedic surgeon 04/28 this is day second status post of operation continue pain control continue PT/OT followup orthopedics surgeon 04/27 day one status post of operation continue pain control continue PT/OT followup orthopedics surgeon pt is planned to have surgery today, will follow up after operation continue pain control continue PT/OT (2) Fall advise pt for fall precaution (3) UTI (urinary tract infection) UA is negative. pt is prescribed Cefepime for pneumonia Continue IV rocephin, cultures are pending. (4) Nausea stable today, continue antiemosis PRN (5) atrial fibrillation with RVR 04/29 pt still present Afib RVR, HR is over 100 to 140. pt present some kind of palpitation feeling. pt state she had "fast heart pause" for long time. Order Metoprolol IV PRN pt is allergy to Cardizem, with whole body rash per pt state prescribed Digoxin 125 mcg, it seems not work continue PO metoprolol succinate 100mg bid continue tele, vital monitor continue Eliquis 04/28, pause is 100, stable now. increase Metoprolol from 50 mg bid to 75mg bid 04/27 pt's HR is 104, pt denies any palpitation. pt missed dosage of Metoprolol continue metoprolol continue tele, vital monitor resume Eliquis stable, Continue tele, echo review EF 70%, HOLD blood thinner Elipquis until after surgery. (6) Pulmonary hypertension, moderate to severe Impression: stable, echo results show elevated right heart pressures with an RVSP at rest of 65 mmHg. continue O2 supplement as needed, pt has O2 supplement at home (7) chest pain 04/29 pt still report chest pain. troponin re-check it is 0.04. clinically pt is more likely costochondritis ibuprofen PRN continue EKG as needed continue nitro, Morphine as needed continue Eliquis and Aspirin until pt d/c, also for dvt prophylaxis after pt has hip repair. 04/28 pt denies more chest pain, Troponin is down to 0.09 from 0.14 continue Eliquis PRN Nitro and Morphine pt is advise to followup sterile processing technician to have stress test as out-pt 04/27 pt report she had left lower midsternal chest pain. Palpitation on the location can cause her more chest pain. but troponin increase to 0.14. EKG does not indicate to have acute [facility] resume pt's home Eliquis add Aspirin 325 mg PRN nitro continue serial troponin Morphine PRN (8) pneumonia with hypoxia 04/29 continue to treat antibiotics. pt's WBC is down to normal 04/28, CTA indicate pt has pneumonia, pt present respiratory distress. continue treatment with Cefepime continue with vital and lab monitor continue O2 supplement as needed change to XOpenex and Ipr for INH PRN 04/27 pt present chest pain, some SOB and hypoxia CXR and CTA of chest, will followup supplement O2 as needed Duoneb PRN (9) wheezing pt present wheezing at morning. order CXR, increase of pleural effusion start low dosage of Lasix start low dosage of solu metrol will switch to Prednisone Qualifiers: Encounter type: initial encounter Fracture type: closed Qualified Code(s): S72.002A - Fracture of unspecified part of neck of left femur, initial encounter for closed fracture
[2018-04-29] MEDS: PANTOPRAZOLE 40 MG TABLET PO SCH (14:18)
[2018-04-29] MEDS: DIGOXIN 125 MCG TABLET PO SCH (14:18)
[2018-04-29] MEDS ORDERED: SODIUM CHLORIDE FLUSH 0.9% 10 ML SYRINGE ONE (14:55)
[2018-04-29] MEDS ORDERED: DIGOXIN 500 MCG/2 ML AMP IVP SCH (16:00)
[2018-04-29] MEDS ORDERED: hydrALAZINE INJ 20 MG/ML VIAL IVP PRN (16:02)
[2018-04-29] MEDS: METOPROLOL 5 MG/5 ML VIAL IVP PRN (18:28)
[2018-04-29] MEDS: methylPREDNISolone SUCCINATE 125 MG/2 ML VIAL IVP SCH (22:01)
[2018-04-30] MEDS: SODIUM CHLORIDE FLUSH 0.9% 10 ML SYRINGE IVP SCH ×3 (00:37→16:12)
[2018-04-30] MEDS: MORPHINE 2 MG/ML CARPUJECT IVP PRN ×2 (00:44→21:23)
[2018-04-30] MEDS: SODIUM CHLORIDE FLUSH 0.9% 10 ML SYRINGE IVP PRN ×6 (00:45→21:23)
[2018-04-30] MEDS: LEVALBUTEROL 1.25 MG/3 ML NEB INH PRN ×3 (00:47→15:11)
[2018-04-30] MEDS: METOPROLOL 5 MG/5 ML VIAL IVP PRN (01:58)
[2018-04-30] MEDS ORDERED: FUROSEMIDE 40 MG/4 ML VIAL IVP SCH ×2 (06:00→14:00)
[2018-04-30] MEDS: methylPREDNISolone SUCCINATE 125 MG/2 ML VIAL IVP SCH (06:08)
[2018-04-30] MEDS: CEFEPIME 1 GM in SODIUM CHLORIDE 0.9% MINIBAG 100 ML IV SCH ×3 (06:09→21:22)
[2018-04-30] MEDS: PANTOPRAZOLE 40 MG TABLET PO SCH (06:10)
[2018-04-30 06:43] LABS: BASOPHILS % (AUTO) 0.4 %; LYMPHOCYTES # (AUTO) 0.6 10^3/uL (1.5-3.5); LYMPHOCYTES % (AUTO) 5.5 %; MEAN CORPUSCULAR HEMOGLOBIN 33.7 pg (27.0-31.0); MEAN CORPUSCULAR HGB CONC 33.5 g/dL (32.0-36.0); MEAN CORPUSCULAR VOLUME 100.5 fL (81.0-99.0); MEAN PLATELET VOLUME 7.1 fL (7.9-10.8); MONOCYTES # (AUTO) 0.7 10^3/uL (0.0-1.0); MONOCYTES % (AUTO) 6.3 %; NEUTROPHILS # (AUTO) 9.4 10^3/uL (1.5-6.6); NEUTROPHILS % (AUTO) 87.8 %; PLT - PLATELET COUNT 316 10^3/uL (130-450); RED BLOOD COUNT 3.87 10^6/uL (4.20-5.40); WHITE BLOOD COUNT 10.7 x10^3/uL (4.8-10.8)
[2018-04-30 07:03] LABS: ALBUMIN 3.6 g/dL (3.2-5.5); ALBUMIN/GLOBULIN RATIO 1.2 (1.0-2.2); BILIRUBIN,TOTAL 0.5 mg/dL (0.2-1.0); CALCIUM 9.1 mg/dL (8.5-10.3); CREATININE 0.5 mg/dL (0.4-1.0); TOTAL PROTEIN 6.7 g/dL (6.7-8.2)
[2018-04-30] MEDS: FORMOTEROL FUMARATE NEB 20 MCG/2 ML INH SCH ×2 (07:04→19:51)
[2018-04-30] MEDS: BUDESONIDE 0.5 MG/2 ML NEB INH SCH ×2 (07:05→19:50)
[2018-04-30] MEDS: IPRATROPIUM 0.2 MG/ML NEB INH SCH ×4 (07:05→19:50)
[2018-04-30] MEDS: POLYETHYLENE GLYCOL 3350 17 GM PACKET PO SCH (08:59)
[2018-04-30] MEDS: DIGOXIN 125 MCG TABLET PO SCH (08:59)
[2018-04-30] MEDS: METOPROLOL SUCCINATE 50 MG TABLET PO SCH ×2 (09:00→16:12)
[2018-04-30] MEDS: LISINOPRIL 20 MG TABLET PO SCH (09:01)
[2018-04-30] MEDS: DOCUSATE SODIUM 250 MG CAPSULE PO SCH (09:02)
[2018-04-30] MEDS: MULTIVITAMIN W/MINERALS TABLET PO SCH (09:02)
[2018-04-30] MEDS: APIXABAN 2.5 MG TABLET PO SCH ×2 (09:02→21:22)
[2018-04-30] MEDS: guaiFENesin 600 MG TABLET PO SCH ×2 (09:02→21:22)
[2018-04-30] MEDS: SENNA 8.6 MG TABLET PO SCH (09:03)
--- NOTE | 2018-04-30 11:55 | PROVIDER PROGRESS NOTE ---
Subjective - Prog Note Date Prog Note Date: 04/30/18 - Subjective Pt reports feeling: Improved Subjective: nurse report she did not have much sleep on last night, but in the morning I went to see pt couple times, she is comfortably sleeping at 2 liter of O2 NC 94% sats. Pt's HR is around 100 at tele. she had 150mg PO metoprolol on 0900, Digoxin 125mcg at 0900, and she had IV of Metoprolol 5mg at 0200. it seems work for her. continue monitor pt today, hope to stabilize her, plan d/c her tomorrow or after tomorrow. pt's son reported on yesterday pt has hx of very difficult to control her afibRVR, and because of this, pt had to be hospitalization for a few days in hospital. Current Medications - Current Medications Current Medications: Active Medications Acetaminophen (Tylenol) 650 mg PO Q4HR PRN PRN Reason: Pain 1 to 4 Last Admin: 04/28/18 21:16 Dose: 650 mg Apixaban (Eliquis) 2.5 mg PO BID [facility] Last Admin: 04/30/18 09:02 Dose: 2.5 mg Budesonide (Pulmicort) 0.5 mg INH RTBID [facility] Last Admin: 04/30/18 07:05 Dose: 0.5 mg Clonidine HCl (Catapres) 0.1 mg PO BID PRN PRN Reason: Hypertensive Emergency Last Admin: 04/29/18 10:53 Dose: 0.1 mg Digoxin (Lanoxin) 125 mcg PO DAILY [facility] Last Admin: 04/30/18 08:59 Dose: 125 mcg Docusate Sodium (Colace 250mg Capsule) 250 - 500 mg PO DAILY [facility] Last Admin: 04/30/18 09:02 Dose: 250 mg Formoterol Fumarate (Perforomist) 20 mcg INH RTBID [facility] Last Admin: 04/30/18 07:04 Dose: 20 mcg Furosemide (Lasix Inj 20mg Vial) 20 mg IVP DAILY [facility] Guaifenesin (Mucinex) 600 mg PO BID [facility] Last Admin: 04/30/18 09:02 Dose: 600 mg Hydralazine HCl (Apresoline Inj) 10 mg IVP TID PRN PRN Reason: Hypertensive Emergency Last Admin: 04/30/18 00:36 Dose: 10 mg Cefepime HCl 1 gm/ Sodium (Chloride) 100 mls @ 200 mls/hr IV TID [facility] Last Infusion: 04/30/18 07:05 Dose: Infused Ibuprofen (Motrin) 400 mg PO Q6HR PRN PRN Reason: PAIN Ipratropium [place] (Atrovent) 0.5 mg INH RTQ4H [facility] Last Admin: 04/30/18 11:03 Dose: 0.5 mg Levalbuterol HCl (Xopenex) 1.25 mg INH Q4H PRN PRN Reason: Shortness of Air/Wheezing Last Admin: 04/30/18 11:03 Dose: 1.25 mg Lisinopril (Zestril) 20 mg PO DAILY [facility] Last Admin: 04/30/18 09:01 Dose: 20 mg Methylprednisolone (Solu-Medrol (40mg Vial)) 40 mg IVP TID [facility] Metoprolol Succinate (Toprol Xl) 150 mg PO BIDWM [facility] Last Admin: 04/30/18 09:00 Dose: 150 mg Metoprolol Tartrate (Lopressor Inj) 5 mg IVP Q6H PRN PRN Reason: Hypertensive Emergency Last Admin: 04/30/18 01:58 Dose: 5 mg Morphine Sulfate (Morphine (Carpuject)) 2 mg IVP Q2HR PRN PRN Reason: Pain 8 to 10 Last Admin: 04/30/18 00:44 Dose: 2 mg Multivitamins/Minerals (Theragran M) 1 tab PO DAILYWM [facility] Last Admin: 04/30/18 09:02 Dose: 1 tab Nitroglycerin (Nitrostat) 0.4 mg SL Q5MIN PRN PRN Reason: Chest Pain Last Admin: 04/29/18 05:02 Dose: 0.4 mg Ondansetron HCl (Zofran Inj) 4 mg IVP Q6HR PRN PRN Reason: Nausea / Vomiting Last Admin: 04/26/18 09:04 Dose: 4 mg Pantoprazole Sodium (Protonix) 40 mg PO QDAC [facility] Last Admin: 04/30/18 06:10 Dose: 40 mg Polyethylene Glycol (Miralax) 17 gm PO DAILY [facility] Last Admin: 04/30/18 08:59 Dose: 17 gm Senna (Senokot) 8.6 - 17.2 mg PO DAILY [facility] Last Admin: 04/30/18 09:03 Dose: Not Given Sodium Chloride (Normal Saline Flush 0.9%) 10 ml IVP PRN PRN PRN Reason: NEEDED PER PROVIDER ORDERS Last Admin: 04/30/18 07:03 Dose: 10 ml Sodium Chloride (Normal Saline Flush 0.9%) 10 ml IVP 0100,0900,1700 [facility] Last Admin: 04/30/18 09:03 Dose: 10 ml Albuterol Sulfate [Proair Hfa Inhaler] 2 puffs INH Q4H PRN 04/25/18 Apixaban [Eliquis] 2.5 mg PO BID 04/25/18 Fluticasone/Salmeterol [Advair 250-50 Diskus] 1 puffs INH BID 04/25/18 Lisinopril 20 mg PO DAILY 04/25/18 Objective - Vital Signs/Intake & Output Vital Signs: Vital Signs x48h Temp Pulse Pulse Pulse Resp BP Pulse Ox 04/30/18 11:04 100 20 04/30/18 07:51 36.4 C L 110 H 22 138/74 H 92 04/30/18 07:09 100 20 04/30/18 04:43 36.7 C 105 H 24 112/90 H 96 Intake & Output: Intake & Output 04/27/18 04/28/18 04/29/18 04/30/18 23:59 23:59 23:59 23:59 Intake Total 2793.607 1380 1080 790 Output Total 9079 654 1898 800 Balance 1293.607 930 -220 -10 - Objective General Appearance: positive: No acute distress, Alert. negative: Lethargic Eyes Bilateral: positive: Normal inspection, PERRL, No lid inflammation, Conjunctivae nml ENT: positive: ENT inspection nml, Pharynx nml, No signs of dehydration. negative: Purulent nasal drainage, Pharyngeal erythema, Oral lesions Neck: positive: Nml inspection, Thyroid nml, No JVD, Trachea midline. negative: Thyromegaly, Lymphadenopathy (R), Lymphadenopathy (L), Stiff neck, Swelling/bruising, Tracheal deviation Respiratory: positive: Chest non-tender, No respiratory distress. negative: Wheezes, Rales Cardiovascular: positive: Regular rate & rhythm, No murmur, No gallop. negative: Irregularly irregular, Extrasystoles, Tachycardia, Bradycardia, JVD present, Systolic murmur, Diastolic murmur Peripheral Pulses: 2+ Radial (R), 2+ Radial (L), 2+ Dorsalis pedis (R), 2+ Dorsalis pedis (L) Abdomen: positive: Non-tender, No organomegaly, Nml bowel sounds, No distention. negative: Tenderness, Guarding, Rebound Back: positive: Nml inspection. negative: CVA tenderness (R), CVA tenderness (L) Skin: positive: Color nml, No rash, Warm, Dry. negative: Cyanosis, Diaphoresis, Pallor Extremities: positive: Non-tender, Full ROM, Nml appearance. negative: Calf tenderness, Joint swelling, Vick's sign/cords Neurologic/Psychiatric: positive: Sensation nml, Mood/affect nml. negative: Weakness, Sensory loss, Facial droop, Slurred/abnml speech, Depressed mo od/affect - Lab Results Fish Bones: 04/30/18 06:20 04/30/18 06:20 Other Labs: Lab Results x24hrs 04/30/18 04/30/18 Range/Units 06:20 06:20 WBC 10.7 (4.8-10.8) x10^3/uL RBC 3.87 L (4.20-5.40) 10^6/uL Hgb 13.0 (12.0-16.0) g/dL Hct 38.9 (37.0-47.0) % MCV 100.5 H (81.0-99.0) fL MCH 33.7 H (27.0-31.0) pg MCHC 33.5 (32.0-36.0) g/dL RDW 12.0 (12.0-15.0) % Plt Count 316 (130-450) 10^3/uL MPV 7.1 L (7.9-10.8) fL Neut # (Auto) 9.4 H (1.5-6.6) 10^3/uL Lymph # (Auto) 0.6 L (1.5-3.5) 10^3/uL Iron # (Auto) 0.7 (0.0-1.0) 10^3/uL Eos # (Auto) 0.0 (0.0-0.7) 10^3/uL Baso # (Auto) 0.0 (0.0-0.1) 10^3/uL Absolute Nucleated RBC 0.01 x10^3/uL Nucleated RBC % 0.1 /100WBC Sodium 131 L (135-145) mmol/L Potassium 4.6 (3.5-5.0) mmol/L Chloride 91 L (101-111) mmol/L Carbon Dioxide 33 H (21-32) mmol/L Anion Gap 7.0 (6-13) BUN 22 H (6-20) mg/dL Creatinine 0.5 (0.4-1.0) mg/dL Estimated GFR (MDRD) 119 (>89) Glucose 130 H (70-100) mg/dL Calcium 9.1 (8.5-10.3) mg/dL Total Bilirubin 0.5 (0.2-1.0) mg/dL AST 48 H (10-42) IU/L ALT 78 H (10-60) IU/L Alkaline Phosphatase 141 H (42-121) IU/L Total Protein 6.7 (6.7-8.2) g/dL Albumin 3.6 (3.2-5.5) g/dL Globulin 3.1 (2.1-4.2) g/dL Albumin/Globulin Ratio 1.2 (1.0-2.2) ABX Reporting Has patient been on IV antibiotics over the past 48 hours?: Yes Sepsis Event Note (H) - Evaluation Current Stage of Sepsis: Ruled out Assessment/Plan - Problem List (1) Fracture of femoral neck, left Impression: 04/30 continue PT/OT, plan to d/c to SNF per PT/OT and orthopedics surgeon's recommendation, will follow up surgeon in two weeks 04/29 continue with PT/OT, pain control, follow up orthopedic surgeon 04/28 this is day second status post of operation continue pain control continue PT/OT followup orthopedics surgeon 04/27 day one status post of operation continue pain control continue PT/OT followup orthopedics surgeon pt is planned to have surgery today, will follow up after operation continue pain control continue PT/OT (2) Fall advise pt for fall precaution (3) UTI (urinary tract infection) UA is negative. pt is prescribed Cefepime for pneumonia Continue IV rocephin, cultures are pending. (4) Nausea stable today, continue antiemosis PRN (5) atrial fibrillation with RVR 04/30 Pt's HR is around 100 at tele, and it seems she had no distress and comfortablly sleep. she had 150mg PO metoprolol on 0900, Digoxin 125mcg at 0900, and she had IV of Metoprolol 5mg at 0200. it seems work for her. 04/29 pt still present Afib RVR, HR is over 100 to 140. pt present some kind of palpitation feeling. pt state she had "fast heart pause" for long time. Order Metoprolol IV PRN pt is allergy to Cardizem, with whole body rash per pt state prescribed Digoxin 125 mcg, it seems not work continue PO metoprolol succinate 100mg bid continue tele, vital monitor continue Eliquis 04/28, pause is 100, stable now. increase Metoprolol from 50 mg bid to 75mg bid 04/27 pt's HR is 104, pt denies any palpitation. pt missed dosage of Metoprolol continue metoprolol continue tele, vital monitor resume Eliquis stable, Continue tele, echo review EF 70%, HOLD blood thinner Elipquis until after surgery. (6) Pulmonary hypertension, moderate to severe Impression: stable, echo results show elevated right heart pressures with an RVSP at rest of 65 mmHg. continue O2 supplement as needed, pt has O2 supplement at home (7) chest pain 04/30, troponin is down to 0.04, pt has no complaint of chest pain. hold Aspirin 325 mg, keep pt's home Eliquis continue tele, close monitor pt continue PRN nitro, Morphine 04/29 pt still report chest pain. troponin re-check it is 0.04. clinically pt is more likely costochondritis ibuprofen PRN continue EKG as needed continue nitro, Morphine as needed continue Eliquis and Aspirin until pt d/c, also for dvt prophylaxis after pt has hip repair. 04/28 pt denies more chest pain, Troponin is down to 0.09 from 0.14 continue Eliquis PRN Nitro and Morphine pt is advise to followup watershed engineer to have stress test as out-pt 04/27 pt report she had left lower midsternal chest pain. Palpitation on the location can cause her more chest pain. but troponin increase to 0.14. EKG does not indicate to have acute [place] resume pt's home Eliquis add Aspirin 325 mg PRN nitro continue serial troponin Morphine PRN (8) pneumonia with hypoxia 04/30, continue Cefepim. pt is on steroid now, WBC can be increased. today WBC is 10.7 94% sats on 2 liter of O2, without respiratory distress now if pt has distress or confused, may consider ABGs to monitor CO2 level. 04/29 continue to treat antibiotics. pt's WBC is down to normal 04/28, CTA indicate pt has pneumonia, pt present respiratory distress. continue treatment with Cefepime continue with vital and lab monitor continue O2 supplement as needed change to XOpenex and Ipr for INH PRN 04/27 pt present chest pain, some SOB and hypoxia CXR and CTA of chest, will followup supplement O2 as needed Duoneb PRN (9) wheezing 04/30 great improved. continue lower dosage of Steroid and Lasix, pt has increas ed small pleural effusion, and COPD/inflammatory lung disease pt present wheezing at morning. order CXR, increase of pleural effusion start low dosage of Lasix start low dosage of solu metrol will switch to Prednisone Qualifiers: Encounter type: initial encounter Fracture type: closed Qualified Code(s): S72.002A - Fracture of unspecified part of neck of left femur, initial encounter for closed fracture
[2018-04-30] MEDS: methylPREDNISolone SUCCINATE 40 MG/ML VIAL IVP SCH ×2 (13:25→21:22)
[2018-04-30] MEDS ORDERED: methylPREDNISolone SUCCINATE 125 MG/2 ML VIAL IVP SCH (14:00)
[2018-04-30] MEDS ORDERED: methylPREDNISolone SUCCINATE 40 MG/ML VIAL IVP SCH (22:00)
[2018-05-01] MEDS: SODIUM CHLORIDE FLUSH 0.9% 10 ML SYRINGE IVP SCH ×4 (04:11→17:23)
[2018-05-01] MEDS: CEFEPIME 1 GM in SODIUM CHLORIDE 0.9% MINIBAG 100 ML IV SCH ×3 (05:38→22:21)
[2018-05-01 05:51] LABS: BASOPHILS % (AUTO) 0.3 %; HGB - HEMOGLOBIN 12.2 g/dL (12.0-16.0); LYMPHOCYTES # (AUTO) 0.8 10^3/uL (1.5-3.5); LYMPHOCYTES % (AUTO) 6.6 %; MEAN CORPUSCULAR HEMOGLOBIN 33.1 pg (27.0-31.0); MEAN CORPUSCULAR HGB CONC 33.4 g/dL (32.0-36.0); MEAN CORPUSCULAR VOLUME 99.3 fL (81.0-99.0); MEAN PLATELET VOLUME 6.7 fL (7.9-10.8); MONOCYTES # (AUTO) 1.1 10^3/uL (0.0-1.0); NEUTROPHILS # (AUTO) 10.4 10^3/uL (1.5-6.6); NEUTROPHILS % (AUTO) 84.1 %; PLT - PLATELET COUNT 394 10^3/uL (130-450); RED BLOOD COUNT 3.69 10^6/uL (4.20-5.40); RED CELL DISTRIBUTION WIDTH 11.9 % (12.0-15.0); WHITE BLOOD COUNT 12.3 x10^3/uL (4.8-10.8)
[2018-05-01 06:01] LABS: ALBUMIN 3.5 g/dL (3.2-5.5); ALBUMIN/GLOBULIN RATIO 1.2 (1.0-2.2); BILIRUBIN,TOTAL 0.6 mg/dL (0.2-1.0); CALCIUM 9.1 mg/dL (8.5-10.3); CREATININE 0.6 mg/dL (0.4-1.0); TOTAL PROTEIN 6.4 g/dL (6.7-8.2)
[2018-05-01] MEDS: methylPREDNISolone SUCCINATE 40 MG/ML VIAL IVP SCH ×3 (06:05→22:20)
[2018-05-01] MEDS: PANTOPRAZOLE 40 MG TABLET PO SCH (06:05)
[2018-05-01] MEDS: BUDESONIDE 0.5 MG/2 ML NEB INH SCH ×2 (06:21→19:29)
[2018-05-01] MEDS: FORMOTEROL FUMARATE NEB 20 MCG/2 ML INH SCH ×2 (06:21→19:28)
[2018-05-01] MEDS: IPRATROPIUM 0.2 MG/ML NEB INH SCH ×4 (06:21→19:28)
[2018-05-01] MEDS: SODIUM CHLORIDE FLUSH 0.9% 10 ML SYRINGE IVP PRN ×2 (07:00→22:21)
[2018-05-01] MEDS ORDERED: FUROSEMIDE 20 MG/2 ML VIAL IVP SCH (09:00)
[2018-05-01] MEDS: POLYETHYLENE GLYCOL 3350 17 GM PACKET PO SCH (09:50)
[2018-05-01] MEDS: METOPROLOL SUCCINATE 50 MG TABLET PO SCH ×2 (10:04→17:23)
[2018-05-01] MEDS: LISINOPRIL 20 MG TABLET PO SCH (10:05)
[2018-05-01] MEDS: APIXABAN 2.5 MG TABLET PO SCH ×2 (10:05→21:11)
[2018-05-01] MEDS: guaiFENesin 600 MG TABLET PO SCH ×2 (10:06→21:11)
[2018-05-01] MEDS: FUROSEMIDE 20 MG TABLET PO SCH (10:06)
[2018-05-01] MEDS: DIGOXIN 125 MCG TABLET PO SCH (10:06)
[2018-05-01] MEDS: DOCUSATE SODIUM 250 MG CAPSULE PO SCH (10:06)
[2018-05-01] MEDS: MULTIVITAMIN W/MINERALS TABLET PO SCH (10:06)
[2018-05-01] MEDS: SENNA 8.6 MG TABLET PO SCH (10:09)
[2018-05-01] MEDS: LEVALBUTEROL 1.25 MG/3 ML NEB INH PRN ×2 (10:58→15:25)
--- NOTE | 2018-05-01 11:58 | PROVIDER PROGRESS NOTE ---
Subjective - Prog Note Date Prog Note Date: 05/01/18 - Subjective Pt reports feeling: Improved Subjective: pt state she has "some improvement, like two finger size improvement." Pt's pulse is controlled around 90. but pt present breath with wheezing which is better than before. pt also present some SOB, but better than before. pt denies chest pain, fever, chill. Current Medications - Current Medications Current Medications: Active Medications Acetaminophen (Tylenol) 650 mg PO Q4HR PRN PRN Reason: Pain 1 to 4 Last Admin: 04/28/18 21:16 Dose: 650 mg Apixaban (Eliquis) 2.5 mg PO BID [facility] Last Admin: 05/01/18 10:05 Dose: 2.5 mg Budesonide (Pulmicort) 0.5 mg INH RTBID [facility] Last Admin: 05/01/18 06:21 Dose: 0.5 mg Clonidine HCl (Catapres) 0.1 mg PO BID PRN PRN Reason: Hypertensive Emergency Last Admin: 04/29/18 10:53 Dose: 0.1 mg Digoxin (Lanoxin) 125 mcg PO DAILY [facility] Last Admin: 05/01/18 10:06 Dose: 125 mcg Docusate Sodium (Colace 250mg Capsule) 250 - 500 mg PO DAILY [facility] Last Admin: 05/01/18 10:06 Dose: 250 mg Formoterol Fumarate (Perforomist) 20 mcg INH RTBID [facility] Last Admin: 05/01/18 06:21 Dose: 20 mcg Furosemide (Lasix) 20 mg PO DAILY [facility] Last Admin: 05/01/18 10:06 Dose: 20 mg Guaifenesin (Mucinex) 600 mg PO BID [facility] Last Admin: 05/01/18 10:06 Dose: 600 mg Hydralazine HCl (Apresoline Inj) 10 mg IVP TID PRN PRN Reason: Hypertensive Emergency Last Admin: 04/30/18 00:36 Dose: 10 mg Cefepime HCl 1 gm/ Sodium (Chloride) 100 mls @ 200 mls/hr IV TID [facility] Last Infusion: 05/01/18 06:08 Dose: Infused Ibuprofen (Motrin) 400 mg PO Q6HR PRN PRN Reason: PAIN Ipratropium [place] (Atrovent) 0.5 mg INH RTQ4H [facility] Last Admin: 05/01/18 10:58 Dose: 0.5 mg Levalbuterol HCl (Xopenex) 1.25 mg INH Q4H PRN PRN Reason: Shortness of Air/Wheezing Last Admin: 05/01/18 10:58 Dose: 1.25 mg Lisinopril (Zestril) 20 mg PO DAILY [facility] Last Admin: 05/01/18 10:05 Dose: 20 mg Methylprednisolone (Solu-Medrol (40mg Vial)) 80 mg IVP TID [facility] Last Admin: 05/01/18 06:05 Dose: 80 mg Metoprolol Succinate (Toprol Xl) 150 mg PO BIDWM [facility] Last Admin: 05/01/18 10:04 Dose: 150 mg Metoprolol Tartrate (Lopressor Inj) 5 mg IVP Q6H PRN PRN Reason: Hypertensive Emergency Last Admin: 04/30/18 01:58 Dose: 5 mg Morphine Sulfate (Morphine (Carpuject)) 2 mg IVP Q2HR PRN PRN Reason: Pain 8 to 10 Last Admin: 04/30/18 21:23 Dose: 2 mg Multivitamins/Minerals (Theragran M) 1 tab PO DAILYWM [facility] Last Admin: 05/01/18 10:06 Dose: 1 tab Nitroglycerin (Nitrostat) 0.4 mg SL Q5MIN PRN PRN Reason: Chest Pain Last Admin: 04/29/18 05:02 Dose: 0.4 mg Ondansetron HCl (Zofran Inj) 4 mg IVP Q6HR PRN PRN Reason: Nausea / Vomiting Last Admin: 04/26/18 09:04 Dose: 4 mg Pantoprazole Sodium (Protonix) 40 mg PO QDAC [facility] Last Admin: 05/01/18 06:05 Dose: 40 mg Polyethylene Glycol (Miralax) 17 gm PO DAILY [facility] Last Admin: 05/01/18 09:50 Dose: 17 gm Senna (Senokot) 8.6 - 17.2 mg PO DAILY [facility] Last Admin: 05/01/18 10:09 Dose: Not Given Sodium Chloride (Normal Saline Flush 0.9%) 10 ml IVP PRN PRN PRN Reason: NEEDED PER PROVIDER ORDERS Last Admin: 05/01/18 07:00 Dose: 10 ml Sodium Chloride (Normal Saline Flush 0.9%) 10 ml IVP 0100,0900,1700 [facility] Last Admin: 05/01/18 10:06 Dose: 10 ml Albuterol Sulfate [Proair Hfa Inhaler] 2 puffs INH Q4H PRN 04/25/18 Apixaban [Eliquis] 2.5 mg PO BID 04/25/18 Fluticasone/Salmeterol [Advair 250-50 Diskus] 1 puffs INH BID 04/25/18 Lisinopril 20 mg PO DAILY 04/25/18 Objective - Vital Signs/Intake & Output Vital Signs: Vital Signs x48h Temp Pulse Pulse Resp BP Pulse Ox 05/01/18 11:05 36.5 C 104 H 18 128/82 H 94 05/01/18 11:03 100 18 05/01/18 07:57 36.8 C 90 16 140/76 H 98 05/01/18 06:22 89 18 05/01/18 05:00 36.6 C 84 18 143/86 H 95 Intake & Output: Intake & Output 04/28/18 04/29/18 04/30/18 05/01/18 23:59 23:59 23:59 23:59 Intake Total 1380 1080 1768 440 Output Total 450 1300 1400 Balance 930 -220 368 440 - Objective General Appearance: positive: No acute distress, Alert. negative: Lethargic Eyes Bilateral: positive: Normal inspection, PERRL, No lid inflammation, Conjunctivae nml ENT: positive: ENT inspection nml, Pharynx nml, No signs of dehydration. negative: Purulent nasal drainage, Pharyngeal erythema, Oral lesions Neck: positive: Nml inspection, Thyroid nml, No JVD, Trachea midline. negative: Thyromegaly, Lymphadenopathy (R), Lymphadenopathy (L), Stiff neck, Swelling/bru ising, Tracheal deviation Respiratory: positive: Chest non-tender, No respiratory distress, Wheezes. negative: Rales, Rhonchi Cardiovascular: positive: Regular rate & rhythm, No murmur, No gallop. negative: Irregularly irregular, Extrasystoles, Tachycardia, Bradycardia, JVD present, Systolic murmur, Diastolic murmur Peripheral Pulses: 2+ Radial (R), 2+ Radial (L), 2+ Dorsalis pedis (R), 2+ Dorsalis pedis (L) Abdomen: positive: Non-tender, No organomegaly, Nml bowel sounds, No distention. negative: Tenderness, Guarding, Rebound Back: positive: Nml inspection. negative: CVA tenderness (R), CVA tenderness (L) Skin: positive: Color nml, No rash, Warm, Dry. negative: Cyanosis, Diaphoresis, Pallor Extremities: positive: Non-tender, Full ROM, Nml appearance. negative: Calf tenderness, Joint swelling, Vick's sign/cords Neurologic/Psychiatric: positive: Sensation nml, Mood/affect nml. negative: Weakness, Sensory loss, Facial droop, Slurred/abnml speech, Depressed mood/affect - Lab Results Fish Bones: 05/01/18 05:15 05/01/18 05:15 Other Labs: Lab Results x24hrs 05/01/18 05/01/18 Range/Units 05:15 05:15 WBC 12.3 H (4.8-10.8) x10^3/uL RBC 3.69 L (4.20-5.40) 10^6/uL Hgb 12.2 (12.0-16.0) g/dL Hct 36.7 L (37.0-47.0) % MCV 99.3 H (81.0-99.0) fL MCH 33.1 H (27.0-31.0) pg MCHC 33.4 (32.0-36.0) g/dL RDW 11.9 L (12.0-15.0) % Plt Count 394 (130-450) 10^3/uL MPV 6.7 L (7.9-10.8) fL Neut # (Auto) 10.4 H (1.5-6.6) 10^3/uL Lymph # (Auto) 0.8 L (1.5-3.5) 10^3/uL [place] # (Auto) 1.1 H (0.0-1.0) 10^3/uL Eos # (Auto) 0.0 (0.0-0.7) 10^3/uL Baso # (Auto) 0.0 (0.0-0.1) 10^3/uL Absolute Nucleated RBC 0.00 x10^3/uL Nucleated RBC % 0.0 /100WBC Sodium 132 L (135-145) mmol/L Potassium 4.4 (3.5-5.0) mmol/L Chloride 89 L (101-111) mmol/L Carbon Dioxide 36 H (21-32) mmol/L Anion Gap 7.0 (6-13) BUN 32 H (6-20) mg/dL Creatinine 0.6 (0.4-1.0) mg/dL Estimated GFR (MDRD) 96 (>89) Glucose 129 H (70-100) mg/dL Calcium 9.1 (8.5-10.3) mg/dL Total Bilirubin 0.6 (0.2-1.0) mg/dL AST 36 (10-42) IU/L ALT 58 (10-60) IU/L Alkaline Phosphatase 107 (42-121) IU/L Total Protein 6.4 L (6.7-8.2) g/dL Albumin 3.5 (3.2-5.5) g/dL Globulin 2.9 (2.1-4.2) g/dL Albumin/Globulin Ratio 1.2 (1.0-2.2) ABX Reporting Has patient been on IV antibiotics over the past 48 hours?: Yes Sepsis Event Note (H) - Evaluation Current Stage of Sepsis: Ruled out Assessment/Plan - Problem List (1) Fracture of femoral neck, left Impression: 05/01, pt walk with PT, pt is good control, has good progress, expect to be d/c to SNF for continuing training 04/30 continue PT/OT, plan to d/c to SNF per PT/OT and orthopedics surgeon's recommendation, will follow up surgeon in two weeks 04/29 continue with PT/OT, pain control, follow up orthopedic surgeon 04/28 this is day second status post of operation continue pain control continue PT/OT followup orthopedics surgeon 04/27 day one status post of operation continue pain control continue PT/OT followup orthopedics surgeon pt is planned to have surgery today, will follow up after operation continue pain control continue PT/OT (2) Fall advise pt for fall precaution (3) UTI (urinary tract infection) UA culture is negative but did show the trace indicated for UTI in UA analysis. pt is prescribed Cefepime for pneumonia Continue IV rocephin, cultures are pending. (4) Nausea resolved stable today, continue antiemosis PRN (5) atrial fibrillation with RVR 05/01 pt's HR is controlled around 90. SBP 140. 12/1 Pt's HR is around 100 at tele, and it seems she had no distress and comfortablly sleep. she had 150mg PO metoprolol on 0900, Digoxin 125mcg at 0900, and she had IV of Metoprolol 5mg at 0200. it seems work for her. 04/29 pt still present Afib RVR, HR is over 100 to 140. pt present some kind of palpitation feeling. pt state she had "fast heart pause" for long time. Order Metoprolol IV PRN pt is allergy to Cardizem, with whole body rash per pt state prescribed Digoxin 125 mcg, it seems not work continue PO metoprolol succinate 100mg bid continue tele, vital monitor continue Eliquis 04/28, pause is 100, stable now. increase Metoprolol from 50 mg bid to 75mg bid 04/27 pt's HR is 104, pt denies any palpitation. pt missed dosage of Metoprolol continue metoprolol continue tele, vital monitor resume Eliquis stable, Continue tele, echo review EF 70%, HOLD blood thinner Elipquis until after surgery. (6) Pulmonary hypertension, moderate to severe Impression: stable, echo results show elevated right heart pressures with an RVSP at rest of 65 mmHg. continue O2 supplement as needed, pt has O2 supplement at home (7) chest pain 05/01 denies more chest pain, troponin 0.04, continue Eliquis. tele and vital monitor 04/30, troponin is down to 0.04, pt has no complaint of chest pain. hold Aspirin 325 mg, keep pt's home Eliquis continue tele, close monitor pt continue PRN nitro, Morphine 04/29 pt still report chest pain. troponin re-check it is 0.04. clinically pt is more likely costochondritis ibuprofen PRN continue EKG as needed continue nitro, Morphine as needed continue Eliquis and Aspirin until pt d/c, also for dvt prophylaxis after pt has hip repair. 04/28 pt denies more chest pain, Troponin is down to 0.09 from 0.14 continue Eliquis PRN Nitro and Morphine pt is advise to followup pigment supplier to have stress test as out-pt 04/27 pt report she had left lower midsternal chest pain. Palpitation on the location can cause her more chest pain. but troponin increase to 0.14. EKG does not indicate to have acute [place] resume pt's home Eliquis add Aspirin 325 mg PRN nitro continue serial troponin Morphine PRN (8) pneumonia with hypoxia 05/01 94% sats on 3.5 liter of O2, no fever/chill, WBC is slight elevated to 12.3 likely due to steroid usage. continue Cefepime 04/30, continue Cefepim. pt is on steroid now, WBC can be increased. today WBC is 10.7 94% sats on 2 liter of O2, without respiratory distress now if pt has distress or confused, may consider ABGs to monitor CO2 level. 04/29 continue to treat antibiotics. pt's WBC is down to normal 04/28, CTA indicate pt has pneumonia, pt present respiratory distress. continue treatment with Cefepime continue with vital and lab monitor continue O2 supplement as needed change to XOpenex and Ipr for INH PRN 04/27 pt present chest pain, some SOB and hypoxia CXR and CTA of chest, will followup supplement O2 as needed Duoneb PRN (9) COPD exacerbation with wheezing 05/01, pt's breath is better, but show mild to moderate bilateral lower lobe wheezing, pt also present some SOB, mild cough. CTA was no PE. continue steroid at 80 tid, continue INH of Duoneb PRN supplement of O2 as needed 04/30 great improved. continue lower dosage of Steroid and Lasix, pt has increased small pleural effusion, and COPD/inflammatory lung disease pt present wheezing at morning. order CXR, increase of pleural effusion start low dosage of Lasix start low dosage of solu metrol will switch to Prednisone Qualifiers: Encounter type: initial encounter Fracture type: closed Qualified Code(s): S72.002A - Fracture of unspecified part of neck of left femur, initial encounter for closed fracture
[2018-05-01] MEDS: ACETAMINOPHEN 325 MG TABLET PO PRN (21:08)
[2018-05-02] MEDS: SODIUM CHLORIDE FLUSH 0.9% 10 ML SYRINGE IVP SCH ×2 (01:14→13:14)
[2018-05-02] MEDS: ACETAMINOPHEN 325 MG TABLET PO PRN (01:14)
[2018-05-02 06:06] LABS: BASOPHILS % (AUTO) 0.3 %; HGB - HEMOGLOBIN 11.9 g/dL (12.0-16.0); LYMPHOCYTES # (AUTO) 0.6 10^3/uL (1.5-3.5); LYMPHOCYTES % (AUTO) 4.8 %; MEAN CORPUSCULAR HEMOGLOBIN 33.3 pg (27.0-31.0); MEAN CORPUSCULAR HGB CONC 33.2 g/dL (32.0-36.0); MEAN CORPUSCULAR VOLUME 100.2 fL (81.0-99.0); MEAN PLATELET VOLUME 6.6 fL (7.9-10.8); MONOCYTES # (AUTO) 0.9 10^3/uL (0.0-1.0); MONOCYTES % (AUTO) 7.3 %; NEUTROPHILS # (AUTO) 10.2 10^3/uL (1.5-6.6); NEUTROPHILS % (AUTO) 87.6 %; PLT - PLATELET COUNT 408 10^3/uL (130-450); RED BLOOD COUNT 3.59 10^6/uL (4.20-5.40); RED CELL DISTRIBUTION WIDTH 12.2 % (12.0-15.0); WHITE BLOOD COUNT 11.7 x10^3/uL (4.8-10.8)
[2018-05-02 06:19] LABS: ALBUMIN 3.3 g/dL (3.2-5.5); ALBUMIN/GLOBULIN RATIO 1.2 (1.0-2.2); BILIRUBIN,TOTAL 0.6 mg/dL (0.2-1.0); CALCIUM 8.7 mg/dL (8.5-10.3); CREATININE 0.7 mg/dL (0.4-1.0)
[2018-05-02] MEDS: CEFEPIME 1 GM in SODIUM CHLORIDE 0.9% MINIBAG 100 ML IV SCH (06:26)
[2018-05-02] MEDS: PANTOPRAZOLE 40 MG TABLET PO SCH (06:28)
[2018-05-02] MEDS: methylPREDNISolone SUCCINATE 40 MG/ML VIAL IVP SCH (06:30)
[2018-05-02] MEDS: IPRATROPIUM 0.2 MG/ML NEB INH SCH (07:29)
[2018-05-02] MEDS: FORMOTEROL FUMARATE NEB 20 MCG/2 ML INH SCH (07:30)
[2018-05-02] MEDS: BUDESONIDE 0.5 MG/2 ML NEB INH SCH (07:30)
[2018-05-02] MEDS: POLYETHYLENE GLYCOL 3350 17 GM PACKET PO SCH (09:30)
[2018-05-02] MEDS: DOCUSATE SODIUM 250 MG CAPSULE PO SCH (09:31)
[2018-05-02] MEDS: FUROSEMIDE 20 MG TABLET PO SCH (09:31)
[2018-05-02] MEDS: MULTIVITAMIN W/MINERALS TABLET PO SCH (09:32)
[2018-05-02] MEDS: APIXABAN 2.5 MG TABLET PO SCH (09:32)
[2018-05-02] MEDS: guaiFENesin 600 MG TABLET PO SCH (09:32)
[2018-05-02] MEDS: DIGOXIN 125 MCG TABLET PO SCH (09:32)
[2018-05-02] MEDS: SENNA 8.6 MG TABLET PO SCH (09:32)
[2018-05-02] MEDS: METOPROLOL SUCCINATE 50 MG TABLET PO SCH (09:33)
[2018-05-02] MEDS: LISINOPRIL 20 MG TABLET PO SCH (09:33)
--- NOTE | 2018-05-02 10:38 | XRAY Report ---
Reason: SOB Procedure Date: 05/02/2018 Accession Number: [id number] / [id number] Procedure: XR - Chest 1 View X-Ray CPT Code: 69376 FULL RESULT: EXAM: CHEST RADIOGRAPHY EXAM DATE: 05/02/2018 10:04 AM. CLINICAL HISTORY: Shortness of breath. COMPARISON: CHEST 1 VIEW 04/29/2018 8:52 AM. TECHNIQUE: 1 view. FINDINGS: Lungs/Pleura: Subtle previously seen left basilar opacities persist, relatively linear possibly scarring or atelectasis. Lung volumes are high with persistent blunting of the left costophrenic angle suggesting a very small pleural effusion. No new lobar consolidation. Mediastinum: Within exam limitations, the cardiomediastinal contour is normal. Other: None. IMPRESSION: High lung volumes with persistent small left pleural effusion and questionable scarring, atelectasis or airspace disease at the left lung base. The appearance is overall stable. RADIA
--- NOTE | 2018-05-02 11:07 | Discharge Plan ---
"Discharge Plan for SNF / PERFECTO - Discharge Plan And Transition Orders Disposition: 03 SNF DC/Xfer Condition: Poor Allergies and Adverse Reactions: Allergies Allergy/AdvReac Type Severity Reaction Status Date / Time diltiazem Allergy Unknown Unknown Verified 04/24/18 15:22 - SNF / [facility] Transition Orders Admit to (Facility): [facility] Under the care of (Name): Dr. Duy Jain Discharge Diagnosis: fracture of left femoral neck, afib with RVR, pneumonia, pulmonary HTN, chest pain, COPD Medicare Certification Statement: I certify that [facility] is medically necessary on a continuing basis for any of the conditions for which she/he is receiving care during hospitalization. Notify PCP of admission and forward orders to primary provider for signature. Weight on admission and: Daily Call PCP immediately if weight increases by: 2 kg Other Notification Orders: Call PCP immediately if patient develops dyspnea, chest pain/tightness or edema. House Bowel Program: Yes Additional Bowel Program Orders: If no BM after 2 days, nurse may give M.O.M. 30ml PO PRN and/or ducolax Supp 1 KS and/or ROBERTO 250mg P.O., and/or senna 1-2 tabs PO. On day 3 nurse may give repeat above order until residents constipation is resolved. Annual Influenza Vaccine (between Jan 29 and August 28): Yes Two-step PPD per [facility] [id number] or approved exception documents: Yes Treatments & Other Orders: pt may followup her PCP, Dr. Duy Jain, when pt is arrival to [facility], followup orthopedics Dr. Loza in 10 days, may followup cell builder to have stress test as out-pt, may followup insurance operations rep to manage her chronic lung disease plus COPD as out-pt. Pt has an irregular 7x6 mm nodular in her right upper lobe, followup CT of chest in 6 months is recommended. Oxygen Orders: pt has 1.5 Liter of O2 on CA now, may adjust as SNF needs Lab Tests or X-ray Orders: as needed in SNF Medication Orders: PLEASE REFER TO THE DISCHARGE MEDICATION LIST. Insulin Orders?: No - Medications New Prescriptions: Nitroglycerin [Nitrostat] 0.4 mg SL Q5MIN PRN #15 tablet PRN Reason: Chest Pain Amox/Clav 500/125 [Augmentin] 1 each PO Q12H #8 tablet Digoxin [Lanoxin] 125 mcg PO DAILY #5 tablet Ipratropium [Atrovent] 0.5 mg INH RTQ4H PRN #10 neb PRN Reason: Shortness Of Air/Wheezing Levalbuterol [Xopenex] 1.25 mg INH Q4H PRN #10 neb PRN Reason: Shortness Of Air/Wheezing Metoprolol Succinate [Toprol Xl] 150 mg PO BIDWM #20 tablet oxyCODONE [Roxicodone] 5 mg PO Q4-6H PRN #15 tablet PRN Reason: Pain predniSONE [Deltasone] 20 mg PO [id number] #21 tab - Diet Type: Geriatric Texture: Regular Liquids: Thin May have monthly special meal: Yes - Therapies | Activity Therapy: Evaluation | Treat if indicated: PT, OT Rehabilitation Potential: Maximize functional status Activity: Activity as Tolerated Additional Instructions: pt may followup her PCP, Dr. Duy Jain, when pt is arrival to [facility], followup orthopedics Dr. Loza in 10 days, may followup cell builder to have stress test as out-pt, may followup insurance operations rep to manage her chronic lung disease plus COPD as out-pt. Pt has an irregular 7x6 mm nodular in her right upper lobe, followup CT of chest in 6 months is recommended."
--- NOTE | 2018-05-02 11:39 | DISCHARGE SUMMARY ---
Discharge Summary Discharge Date: 05/02/18 Discharging Provider: SANTIAGO Primary Care Provider: Dr. Duy Jain Condition at Discharge: Poor Discharge Disposition: SNF DC/Xfer Discharge Facility Name: [facility] - DIAGNOSES Admission Diagnoses: 1, left femoral neck fracture 2, fall 3, Afib with RVR on Eliquis 4, COPD with O2-dependent of 2 liter at home Discharge Diagnoses with Status of Each Condition: (1) Fracture of femoral neck, left continue PT/OT in SNF, pt is d/c to [facility], followup orthopedics office in 10 days (2) Fall advise pt for fall precaution (3) UTI (urinary tract infection) UA culture is negative. pt is treated with antibiotics 8 days in hospital (4) Nausea resolved (5) atrial fibrillation with RVR pt's HR is controlled. pt is prescribed meds Dignoxin and Metoprolol pt used in the hospital (6) Pulmonary hypertension, moderate to severe Impression: stable, echo results show elevated right heart pressures with an RVSP at rest of 65 mmHg. continue O2 supplement as needed in SNF (7) chest pain pt state no more chest pain. after treatment, pt's troponin is down to 0.04. continue pt's home meds Eliquis and prescribed Nitro PRN advise pt followup ecdis n navigation operator as out-pt to have stress test (8) pneumonia with hypoxia stable, pt has 96% sat on 1.5 liter of O2. pt is O2-dependent on 2 liter of O2 at home. No fever, chill, cough. pt is prescribed Augmentin for continuing treatment. (9) COPD exacerbation with wheezing stable, pt has 96% sat on 1.5 liter of O2. pt is O2-dependent on 2 liter of O2 at home. pt report she has "wheezing all the time", chronic. CXR reveals overall stable. pt is prescribe Xopenex, Atrovent, Prednisone wane pack. pt is advised to followup PCP and fiscal economist for continuing the management Discuss with pt about her lung nodule, CT of chest in 6 months is recommended. - HPI History of Present Illness: please review Dr. Watson's HPI on 04/24/18 for pt. Basically pt was admitted for left femoral fracture from her fall. orthopedics was consulted. - HOSPITAL COURSE Hospital Course: pt was admitted for Fracture of femoral neck, left. Pt had surgery done by Dr. Loza, then pt has continued with PT/OT evaluation and treatment, then pt was d/c to SNF for continue training. Pt also developed atrial fibrillation with RVR, Dignoxin and Metoprolol finally controlled pt's pulse around 90. Pt also developed post operation chest pain, with elevated troponin. After treated with Aspirin 325 mg, pt's home meds Eliquis, pt's troponin is down to 0.04. pt denies chest pain more. pt is advised to have stress test with her ecdis n navigation operator. pt has developed pneumonia, treated with antibiotics and continue to finish the antibiotics course in SNF, finally pt also developed COPD exacerbation. pt was treated with Steroid and INH treatment. Finally pt is stable, with 96% sats on 1.5 liter of O2, and to be d/c to SNF to continue training. - ALLERGIES Allergies/Adverse Reactions: Allergies Allergy/AdvReac Type Severity Reaction Status Date / Time diltiazem Allergy Unknown Unknown Verified 04/24/18 15:22 - MEDICATIONS Home Medications: Ambulatory Orders Medication Instructions Recorded Confirmed Apixaban [Eliquis] 2.5 mg PO BID 04/25/18 04/25/18 Fluticasone/Salmeterol [Advair 1 puffs INH BID 04/25/18 04/25/18 250-50 Diskus] Lisinopril 20 mg PO DAILY 04/25/18 04/25/18 Amox/Clav 500/125 [Augmentin] 1 each PO Q12H #8 tablet 05/02/18 Digoxin [Lanoxin] 125 mcg PO DAILY #5 tablet 05/02/18 Ipratropium [Atrovent] 0.5 mg INH RTQ4H PRN #10 neb 05/02/18 Levalbuterol [Xopenex] 1.25 mg INH Q4H PRN #10 neb 05/02/18 Metoprolol Succinate [Toprol Xl] 150 mg PO BIDWM #20 tablet 05/02/18 Nitroglycerin [Nitrostat] 0.4 mg SL Q5MIN PRN #15 tablet 05/02/18 oxyCODONE [Roxicodone] 5 mg PO Q4-6H PRN #15 tablet 05/02/18 predniSONE [Deltasone] 20 mg PO [id number] #21 tab 05/02/18 - PHYSICAL EXAM AT DISCHARGE General Appearance: positive: No acute distress, Alert. negative: Lethargic Eyes Bilateral: positive: Normal inspection, PERRL, No lid inflammation, Conjunctivae nml ENT: positive: ENT inspection nml, Pharynx nml, No signs of dehydration. negat amina: Purulent nasal drainage, Pharyngeal erythema, Oral lesions Neck: positive: Nml inspection, Thyroid nml, No JVD, Trachea midline. negative: Thyromegaly, Lymphadenopathy (R), Lymphadenopathy (L), Stiff neck, Swelling/bruising, Tracheal deviation Respiratory: positive: Chest non-tender, No respiratory distress, Wheezes. negative: Rales, Rhonchi Cardiovascular: positive: Regular rate & rhythm, No murmur, No gallop, Irr egularly irregular, Extrasystoles. negative: Tachycardia, Bradycardia, JVD present, Systolic murmur, Diastolic murmur Peripheral Pulses: positive: 2+ Abdomen: positive: Non-tender, No organomegaly, Nml bowel sounds, No distention. negative: Tenderness, Guarding, Rebound Back: positive: Nml inspection. negative: CVA tenderness (R), CVA tenderness (L) Skin: positive: Color nml, No rash, Warm, Dry. negative: Cyanosis, Diaphoresis, Pallor Extremities: positive: Non-tender, Nml appearance. negative: Calf tenderness, Joint swelling, Vick's sign/cords Neurologic/Psychiatric: positive: Sensation nml, Mood/affect nml. negative: Weakness, Sensory loss, Facial droop, Slurred/abnml speech, Depressed mood/affect - LABS Result Diagrams: 05/02/18 05:57 05/02/18 05:57 - SEPSIS Current Stage of Sepsis: Ruled out - FOLLOW UP Follow Up: pt may followup her PCP, Dr. Duy Jain, when pt is arrival to [facility], followup orthopedics Dr. Loza in 10 days, may followup ecdis n navigation operator to have stress test as out-pt, may followup fiscal economist to manage her chronic lung disease plus COPD as out-pt. Pt has an irregular 7x6 mm nodular in her right upper lobe, followup CT of chest in 6 months is recommended. - TIME SPENT Time Spent in Discharge (Minutes): 60
[2018-05-02 13:21] VITALS: BP 139/80
[2018-05-02] MEDS ORDERED: methylPREDNISolone SUCCINATE 40 MG/ML VIAL IVP SCH (14:00)
== END 2018-05-02 14:50 | DRG 480 ==
LOC: EDUNIT# → ED 15:12 → MS2 20:20
PROVIDERS: ADMIT Internal Medicine; ATTEND Nurse Practitioner Gerontology
PROC: 0QH734Z Insertion of Internal Fixation Device into Left Upper Femur, Percutaneous Approach (ICD-10-PCS; principal; 2018-04-26 11:30)
DX: S72.002A Fracture of unspecified part of neck of left femur, initial encounter for closed fracture (principal); J18.9 Pneumonia, unspecified organism; N30.00 Acute cystitis without hematuria; S20.212A Contusion of left front wall of thorax, initial encounter; W01.0XXA Fall on same level from slipping, tripping and stumbling without subsequent striking against object, initial encounter; Y93.E3 Activity, vacuuming; Y92.003 Bedroom of unspecified non-institutional (private) residence as the place of occurrence of the external cause; F17.200 Nicotine dependence, unspecified, uncomplicated; J43.9 Emphysema, unspecified; R09.02 Hypoxemia; R07.89 Other chest pain; I48.0 Paroxysmal atrial fibrillation; I10 Essential (primary) hypertension; I27.20 Pulmonary hypertension, unspecified; Z99.81 Dependence on supplemental oxygen; Z79.899 Other long term (current) drug therapy; Z79.01 Long term (current) use of anticoagulants; Z87.891 Personal history of nicotine dependence; Z79.51 Long term (current) use of inhaled steroids; Z88.8 Allergy status to other drugs, medicaments and biological substances
CPT/HCPCS: 36415; 36600; 51702; 71045; 71275; 80053; 81001; 82803; 83036; 83605; 83690; 83735; 84100; 84443; 84484; 85025; 85610; 86850; 86900; 86901; 87040; 87086; 93005; 93306; 94640; 96374; 99284; 99285

== ENCOUNTER 2018-05-02 18:39 | Emergency (ER) | payer MEDICARE, OTHER ==
--- NOTE | 2018-05-02 20:01 | ED Physician Documentation ---
PD HPI SYNCOPE - Stated complaint Stated Complaint: SYNCOPE - Chief complaint Chief Complaint: Neuro - History obtained from History obtained from: Patient, Family, EMS, Caregiver - History of Present Illness Witnessed: Witnessed Timing - onset: Today (just OB/GYN NURSE) Duration: Seconds Preceding symptoms: Light headed, Generalized weakness. No: Headache, Chest pain, Abdominal pain Associated symptoms: No: Seizure, Headache, Chest pain Contributing factors: Just stood up (she was standing in bathroom, getting assistance for seat riser so she did not have to bend too low. [place] warm and lightheaded. Then fainted. Son said she looked pale.). No: Recent med change Injury occurred: Fell (was lowered to ground by her son, no impact per se.). No: Head injury, Neck injury Recently seen: Emergency Dept, Admitted (She had fallen and had a hip fracture that was repaired a week ago. She was in the hospital here recovering and then was transferred to [facility] for rehab just today. She just arrived to [facility] and was going to the bathroom when she felt lightheaded sweaty, looked pale and then fainted.) Review of Systems Constitutional: denies: Fever Nose: denies: Rhinorrhea / runny nose, Congestion Throat: denies: Sore throat Cardiac: denies: Chest pain / pressure Respiratory: denies: Dyspnea, Cough GI: denies: Abdominal Pain, Nausea, Vomiting, Diarrhea, Bloody / black stool : denies: Dysuria, Frequency Skin: denies: Abrasion (s), Laceration (s) Musculoskeletal: denies: Neck pain, Back pain Neurologic: denies: Focal weakness, Altered mental status, Headache Immunocompromised: denies: Immunocompromised PD PAST MEDICAL HISTORY - Past Medical History Past Medical History: No Cardiovascular: Hypertension, Atrial fibrillation, Arrhythmia Respiratory: COPD, Emphysema, Shortness of breath Endocrine/Autoimmune: None GI: Hiatal hernia, Diverticulitis, Cholelithiasis PROCESS MAINTENANCE TECHNICIAN: None : Incontinence HEENT: None Psych: None Musculoskeletal: None Derm: Eczema - Past Surgical History Past Surgical History: Yes General: Cholecystectomy, Appendectomy, Hiatal hernia repair, Colonoscopy /PROCESS MAINTENANCE TECHNICIAN: Other HEENT: Tonsil/Adenoidectomy Derm: Skin cancer surgery - Present Medications Home Medications: Ambulatory Orders Medication Instructions Recorded Confirmed Apixaban [Eliquis] 2.5 mg PO BID 04/25/18 05/02/18 Fluticasone/Salmeterol [Advair 1 puffs INH BID 04/25/18 05/02/18 250-50 Diskus] Lisinopril 20 mg PO DAILY 04/25/18 05/02/18 Amox/Clav 500/125 [Augmentin] 1 each PO Q12H #8 tablet 05/02/18 05/02/18 Digoxin [Lanoxin] 125 mcg PO DAILY #5 tablet 05/02/18 05/02/18 Ipratropium [Atrovent] 0.5 mg INH RTQ4H PRN #10 neb 05/02/18 05/02/18 Levalbuterol [Xopenex] 1.25 mg INH Q4H PRN #10 neb 05/02/18 05/02/18 Metoprolol Succinate [Toprol Xl] 150 mg PO BIDWM #20 tablet 05/02/18 05/02/18 Nitroglycerin [Nitrostat] 0.4 mg SL Q5MIN PRN #15 tablet 05/02/18 05/02/18 oxyCODONE [Roxicodone] 5 mg PO Q4-6H PRN #15 tablet 05/02/18 05/02/18 predniSONE [Deltasone] 20 mg PO [id number] #21 tab 05/02/18 05/02/18 - Allergies Allergies/Adverse Reactions: Allergies Allergy/AdvReac Type Severity Reaction Status Date / Time diltiazem Allergy Unknown Unknown Verified 05/02/18 18:49 - Social History Does the pt smoke?: No Smoking Status: Former smoker Does the pt drink ETOH?: Yes ETOH Use: Wine Does the pt have substance abuse?: No - Immunizations Immunizations are current?: Yes - POLST Patient has POLST: No PD ED PE NORMAL - Vitals Vital signs reviewed: Yes - General General: Alert and oriented X 3, Well developed/nourished - HEENT HEENT: Atraumatic, PERRL, Pharynx benign - Neck Neck: Supple, no meningeal sign, No adenopathy - Cardiac Cardiac: No murmur. No: RRR - Respiratory Respiratory: Clear bilaterally - Abdomen Abdomen: Soft, Non tender - Female Female : Deferred - Rectal Rectal: Deferred - Back Back: No CVA TTP - Derm Derm: Normal color, Warm and dry - Extremities Extremities: No deformity, No tenderness to palpate, No edema, No calf tenderness / cord - Neuro Neuro: Alert and oriented X 3, No motor deficit, Normal speech Results - Vitals Vitals: Vital Signs - 24 hr 05/02/18 05/02/18 05/02/18 18:43 19:56 22:34 Temperature 36.1 C L Heart Rate 91 85 88 Respiratory 18 21 22 Rate Blood Pressure 161/98 H 134/64 H 154/67 H O2 Saturation 97 96 100 05/02/18 23:27 Temperature Heart Rate 75 Respiratory 17 Rate Blood Pressure 135/73 H O2 Saturation 100 Oxygen O2 Source Room air Oxygen Flow Rate 4 - EKG (time done) 18:48 Rate: Rate (enter#) (107) Rhythm: Atrial fibrillation [place]: Normal QRS: Normal Ischemia: Normal ST segments. No: ST elevation c/w ischemia, ST depression Compare to prior EKG: Unchanged from prior EKG - Labs Labs: Laboratory Tests 05/02/18 05/02/18 05/02/18 20:10 20:10 20:10 WBC 14.0 H RBC 3.75 L Hgb 12.4 Hct 38.2 MCV 101.8 H MCH 33.0 H MCHC 32.4 RDW 12.3 Plt Count 429 MPV 6.6 L Neut # (Auto) Not Reportable Lymph # (Auto) Not Reportable [place] # (Auto) Not Reportable Eos # (Auto) Not Reportable Baso # (Auto) Not Reportable Absolute Nucleated RBC Not Reportable Total Counted 100 Band Neuts % (Manual) 2 Abnorm Lymph % (Manual) 0 Nucleated RBC % Not Reportable Neutrophils # (Manual) 11.8 H Lymphocytes # (Manual) 1.0 L Monocytes # (Manual) 1.3 H Eosinophils # (Manual) 0.0 Basophils # (Manual) 0.0 Differential Comment MANUAL DIFFERENTIAL Platelet Estimate NORMAL (130-450,000) Platelet Morphology NORMAL APPEARANCE RBC Morph Micro Appear NORMAL APPEARANCE Sodium 132 L Potassium 4.1 Chloride 90 L Carbon Dioxide 38 H Anion Gap 4.0 L BUN 46 H Creatinine 0.7 Estimated GFR (MDRD) 81 L Glucose 175 H Calcium 9.0 Magnesium 2.5 Total Bilirubin 0.6 AST 76 H ALT 115 H Alkaline Phosphatase 107 Troponin I < 0.04 B-Natriuretic Peptide Total Protein 6.4 L Albumin 3.6 Globulin 2.8 Albumin/Globulin Ratio 1.3 Lipase 31 Urine Color Urine Clarity Urine pH Ur Specific [place] Urine Protein Urine Glucose (UA) Urine Ketones Urine Occult Blood Urine Nitrite Urine Bilirubin Urine Urobilinogen Ur Leukocyte Esterase Urine RBC Urine WBC Ur Squamous Epith Cells Urine Bacteria Ur Microscopic Review Urine Culture Comments 05/02/18 05/02/18 20:10 20:45 WBC RBC Hgb Hct MCV MCH MCHC RDW Plt Count MPV Neut # (Auto) Lymph # (Auto) [place] # (Auto) Eos # (Auto) Baso # (Auto) Absolute Nucleated RBC Total Counted Band Neuts % (Manual) Abnorm Lymph % (Manual) Nucleated RBC % Neutrophils # (Manual) Lymphocytes # (Manual) Monocytes # (Manual) Eosinophils # (Manual) Basophils # (Manual) Differential Comment Platelet Estimate Platelet Morphology RBC Morph Micro Appear Sodium Potassium Chloride Carbon Dioxide Anion Gap BUN Creatinine Estimated GFR (MDRD) Glucose Calcium Magnesium Total Bilirubin AST ALT Alkaline Phosphatase Troponin I B-Natriuretic Peptide 995 H Total Protein Albumin Globulin Albumin/Globulin Ratio Lipase Urine Color YELLOW Urine Clarity CLOUDY Urine pH 6.0 Ur Specific [place] 1.020 Urine Protein NEGATIVE Urine Glucose (UA) NEGATIVE Urine Ketones NEGATIVE Urine Occult Blood LARGE H Urine Nitrite NEGATIVE Urine Bilirubin NEGATIVE Urine Urobilinogen 0.2 (NORMAL) Ur Leukocyte Esterase LARGE H Urine RBC 6-10 H Urine WBC >25 H Ur Squamous Epith Cells MANY Squamous H Urine Bacteria Many H Ur Microscopic Review INDICATED Urine Culture Comments NOT INDICATED PD MEDICAL DECISION MAKING - ED course Complexity details: reviewed results (She does have some white cells and bacteria noted on urinalysis but also a lot of squamous cells. Await culture. Her electrolytes are good. Troponin is negative. There are no signs of PE on CT of the chest. She had a recent pneumonia and there is report of some lymph nodes in the pulmonary areas that may be consistent with that. Repeat CT is recommended in 6 months. Her EKG does not show any ischemic changes.), considered differential (She was standing in the bathroom and did require a few minutes for assistance. She felt hot and sweaty and lightheaded and then fainted. She did not have any chest pain or headache prior to. She awoke shortly after being down in the supine position. It sounds likely to have been a postural or vasovagal syncope. However she is recently postop from a hip surgery and would likely need to look for significant causes of infection or heart related and even consider blood clots given the report of low blood pressure and low oxygenation. However that may have been just poor reading from the oximeter given her lower pressure. She has good blood pressure heart rate and alertness on arrival here.), d/w patient Departure - Departure Disposition: 01 Home, Self Care Clinical Impression: Postural syncope Condition: Stable Record reviewed to determine appropriate education?: Yes Instructions: ED Syncope Vasovagal Follow-Up: Duy Jain MD [Primary Care Provider] - Comments: Resume orders written previously for care at [facility]. Give adequate hydration. There are no obvious significant causes for the fainting episode. I presume was a transient drop in the blood pressure related to the standing and may have had some under hydration.
[2018-05-02] MEDS ORDERED: SODIUM CHLORIDE 0.9% 1,000 ML IV ONE (20:05)
[2018-05-02 20:33] LABS: BASOPHILS % (AUTO) 0.2 %; HGB - HEMOGLOBIN 12.4 g/dL (12.0-16.0); LYMPHOCYTES % (AUTO) 2.9 %; MEAN CORPUSCULAR HGB CONC 32.4 g/dL (32.0-36.0); MEAN CORPUSCULAR VOLUME 101.8 fL (81.0-99.0); MEAN PLATELET VOLUME 6.6 fL (7.9-10.8); MONOCYTES % (AUTO) 13.8 %; NEUTROPHILS % (AUTO) 83.1 %; PLT - PLATELET COUNT 429 10^3/uL (130-450); RED BLOOD COUNT 3.75 10^6/uL (4.20-5.40); RED CELL DISTRIBUTION WIDTH 12.3 % (12.0-15.0)
[2018-05-02 20:34] LABS: ABNORMAL LYMPHS % (MANUAL) 0 %
--- NOTE | 2018-05-02 20:39 | XRAY Report ---
Reason: dyspnea and syncope Procedure Date: 05/02/2018 Accession Number: [id number] / [id number] Procedure: XR - Chest 1 View X-Ray CPT Code: 23273 FULL RESULT: EXAM: CHEST RADIOGRAPHY EXAM DATE: 05/02/2018 08:23 PM. CLINICAL HISTORY: Dyspnea and syncope. COMPARISON: 05/02/2018. TECHNIQUE: 1 view. FINDINGS: Lungs/Pleura: No focal opacities evident. No pleural effusion. No pneumothorax. Mediastinum: The heart size is normal. Arterial calcifications indicate atherosclerosis. Other: None. IMPRESSION: No acute findings. RADIA
[2018-05-02 20:47] LABS: ALBUMIN 3.6 g/dL (3.2-5.5); ALBUMIN/GLOBULIN RATIO 1.3 (1.0-2.2); BILIRUBIN,TOTAL 0.6 mg/dL (0.2-1.0); CREATININE 0.7 mg/dL (0.4-1.0); MAGNESIUM 2.5 mg/dL (1.7-2.8); TOTAL PROTEIN 6.4 g/dL (6.7-8.2)
[2018-05-02 21:03] LABS: BAND NEUTROPHILS % (MANUAL) 2 %; DIFFERENTIAL COMMENT MANUAL DIFFERENTIAL; LYMPHOCYTES % (MANUAL) 7 %; MONOCYTES # (MANUAL) 1.3 10^3/uL (0.0-1.0); NEUTROPHILS # (MANUAL) 11.8 10^3/uL (1.5-6.6); NEUTROPHILS % (MANUAL) 82 %; PLATELET ESTIMATE, MANUAL NORMAL (130-450,000) (NORMAL); PLATELET MORPHOLOGY NORMAL APPEARANCE (NORMAL); RBC MORPHOLOGY (MULTIPLE) NORMAL APPEARANCE (NORMAL)
[2018-05-02 21:03] LABS: BILIRUBIN,URINE NEGATIVE (NEGATIVE); GLUCOSE, URINE (UA) NEGATIVE (NEGATIVE); KETONES,URINE (UA) NEGATIVE (NEGATIVE); LEUKOCYTE ESTERASE, URINE LARGE (NEGATIVE); NITRITE,URINE NEGATIVE (NEGATIVE); OCCULT BLOOD,URINE LARGE (NEGATIVE); PROTEIN,URINE NEGATIVE (NEGATIVE); UROBILINOGEN,URINE 0.2 (NORMAL) E.U./dL (NORMAL)
[2018-05-02 21:04] LABS: CLARITY,URINE CLOUDY (CLEAR)
[2018-05-02 21:05] LABS: BACTERIA,URINE Many /HPF (None Seen); SQUAMOUS EPITHELIAL CELL,UR MANY Squamous (<= Few)
[2018-05-02] MEDS ORDERED: IOVERSOL 320 100 ML VIAL IVP ONE ×2 (21:28→22:01)
[2018-05-02] MEDS ORDERED: cefTRIAXone 1 GM VIAL IVP STA (22:15)
--- NOTE | 2018-05-02 22:36 | CT Report ---
Reason: syncope and dyspnea this afternoon Procedure Date: 05/02/2018 Accession Number: [id number] / [id number] Procedure: CT - Chest Angio (PE) CPT Code: FULL RESULT: EXAM: CT ANGIOGRAM CHEST. EXAM DATE: 05/02/2018 10:00 PM. CLINICAL HISTORY: Syncope and dyspnea this afternoon. COMPARISON: Chest angiogram 04/27/2018 11:22 AM. TECHNIQUE: Routine helical imaging was performed through the chest in the pulmonary arterial phase. IV Contrast: OPTI 320 80 mL. Reconstructions: Coronal 3-D MIP reconstructions.Sagittal and coronal. In accordance with CT protocol optimization, one or more of the following dose reduction techniques were utilized for this exam: automated exposure control, adjustment of mA and/or KV based on patient size, or use of iterative reconstructive technique. FINDINGS: Pulmonary Arteries: There is adequate opacification through the segmental arteries. No evidence for acute or chronic pulmonary emboli. Lungs and Pleura: There is moderate upper lung predominant central lobular emphysema. There is a small indistinct opacity within the posterior lateral portion of the right upper lobe, new from the prior examination (image 47 series 5). Irregular laterally located right upper lobe nodule at the perihilar location is again seen without significant change (image 67 series 5), measuring up to 9 x 5 mm (image 67 series 5). A few additional scattered small peribronchial nodular opacities within the right middle lobe are seen. Scattered central lobular nodules are also noted within the right lower lobe, new from the prior exam. Air trapping seen within the superior segment of the left lower lobe. Small bilateral effusions are seen, left greater than right as before. Minimal increase in the left-sided effusion since the prior study. Central Airways: Visualized central airways are without suspicious filling defects. Chest Wall: No significant abnormality. Thyroid: No significant abnormality. Mediastinum: No significant abnormality. Heart: Borderline enlargement. No significant pericardial effusion. Right-sided chamber dilation noted. Aorta: Normal caliber. Severe calcific atherosclerosis. Upper Abdomen: New possible left-sided hydronephrosis versus extrarenal pelvis dilation. Bones: No suspicious bony lesions evident. However, bones are at least moderately osteopenic. This reduces exam sensitivity and specificity for detection of subtle bony lesions and/or fractures. IMPRESSION: 1. No pulmonary embolism demonstrated. 2. Developing of scattered centrilobular nodules within the right lower lobe. Endobronchial changes are seen within the right middle lobe coupled with mild bronchiolectasis. Constellation of findings could be due to chronic indolent infection such as non-TB mycobacterial infection. 3. Small right as well as a small to medium left effusion with slight increase in the left-sided effusion since the prior study. 4. A few scattered lung nodules are seen on the right side, with a dominant 9 x 5 mm right upper lobe perihilar nodule. As indicated previously, follow-up examination recommended at 6 months. 5. Left-sided hydronephrosis versus dilation of the extrarenal pelvis. It is partially visualized. RADIA
[2018-05-02 23:28] VITALS: BP 135/73
== END 2018-05-02 23:40 | disposition home or self-care (01) ==
LOC: EDUNIT# → ED 18:39
DX: R55 Syncope and collapse (principal); I10 Essential (primary) hypertension; I48.91 Unspecified atrial fibrillation; Z79.01 Long term (current) use of anticoagulants; Z87.891 Personal history of nicotine dependence
CPT/HCPCS: 36415; 71045; 71275; 80053; 81001; 83690; 83735; 83880; 84484; 85025; 93005; 96374; 99284; Q9967; 81003; 87086

== ENCOUNTER 2018-05-02 23:37 | Outpatient (CLI) | payer MEDICARE, OTHER | END 2018-05-02 23:38 | LOC: EMS 23:37 | PROVIDERS: ATTEND Surgery | DX: N39.0 Urinary tract infection, site not specified (principal); M25.559 Pain in unspecified hip; R55 Syncope and collapse; R46.4 Slowness and poor responsiveness | CPT/HCPCS: A0425; A0428; A0429 ==

== ENCOUNTER 2018-05-03 11:10 | Inpatient (IN) | payer MEDICARE, OTHER ==
[2018-05-03] MEDS ORDERED: SUCCINYLCHOLINE 200 MG/10 ML VIAL IVP STA (11:22)
[2018-05-03] MEDS ORDERED: ETOMIDATE 40 MG/20 ML VIAL IVP STA (11:22)
[2018-05-03] MEDS ORDERED: ETOMIDATE 40 MG/20 ML VIAL IVP ONE (11:23)
[2018-05-03] MEDS ORDERED: SUCCINYLCHOLINE 200 MG/10 ML VIAL ONE (11:24)
--- NOTE | 2018-05-03 11:27 | ED Physician Documentation ---
History of Present Illness - Stated complaint Stated Complaint: SYNCOPE - Chief complaint Chief Complaint: Critical Care - Additonal information Additional information: hx from [facility] doc, EMR, EMS 78 female s/p L hip fx admitted to [facility] for same pre-op work up indicates pmhx HTN O2 dep COPD and paroxysmal a fib on eliquis had surgery here - preop echo = EF 75% dc to [facility] had syncope on commode shorlt after arriving at [facility] last night - sent to ED for same - wup included EKG (a fib unchanged from perop), labs (elev BNP but no CHF on CXR, neg trop, hypercapnea similar to levels while admitted for surgery, + UA (on augmentin), CXR and a CTPA (no PE) was doing better felt maybe to have had postural or vasovagl syncope so dced to [facility] again again syncope today during PT no injury per Dr Paz was tachy tachypneic and sat 56% EMS planned to intubate but sats up on NRB full code Review of Systems Unable to obtain: Unresponsive PD PAST MEDICAL HISTORY - Past Medical History Cardiovascular: Hypertension, Atrial fibrillation, Arrhythmia Respiratory: COPD, Emphysema, Shortness of breath Endocrine/Autoimmune: None GI: Hiatal hernia, Diverticulitis, Cholelithiasis DIRECT SUPPORT STAFF: None : Incontinence HEENT: None Psych: None Musculoskeletal: None Derm: Eczema - Past Surgical History Past Surgical History: Yes General: Cholecystectomy, Appendectomy, Hiatal hernia repair, Colonoscopy /DIRECT SUPPORT STAFF: Other HEENT: Tonsil/Adenoidectomy Derm: Skin cancer surgery - Present Medications Home Medications: Ambulatory Orders Medication Instructions Recorded Confirmed Apixaban [Eliquis] 2.5 mg PO BID 04/25/18 05/03/18 Fluticasone/Salmeterol [Advair 1 puffs INH BID 04/25/18 05/03/18 250-50 Diskus] Amox/Clav 500/125 [Augmentin] 1 each PO Q12H #8 tablet 05/02/18 05/03/18 Digoxin [Lanoxin] 125 mcg PO DAILY #5 tablet 05/02/18 05/03/18 Ipratropium [Atrovent] 0.5 mg INH RTQ4H PRN #10 neb 05/02/18 05/03/18 Levalbuterol [Xopenex] 1.25 mg INH Q4H PRN #10 neb 05/02/18 05/03/18 Metoprolol Succinate [Toprol Xl] 150 mg PO BIDWM #20 tablet 05/02/18 05/03/18 Nitroglycerin [Nitrostat] 0.4 mg SL Q5MIN PRN #15 tablet 05/02/18 05/03/18 predniSONE [Deltasone] 20 mg PO [id number] #21 tab 05/02/18 05/03/18 Bisacodyl Supp [Dulcolax Supp] 10 mg IL PRN PRN 05/03/18 05/03/18 Magnesium Hydroxide [Milk of 30 ml PO PRN PRN 05/03/18 05/03/18 Magnesia] Senna [Senokot] 8.6 - 17.2 mg PO PRN PRN 05/03/18 05/03/18 oxyCODONE [Roxicodone] 5 mg PO Q4H PRN 05/03/18 05/03/18 - Allergies Allergies/Adverse Reactions: Allergies Allergy/AdvReac Type Severity Reaction Status Date / Time diltiazem Allergy Unknown Unknown Verified 05/03/18 11:20 - Social History Does the pt smoke?: No Smoking Status: Former smoker Does the pt drink ETOH?: Yes Does the pt have substance abuse?: No - Immunizations Immunizations are current?: Yes - POLST Patient has POLST: No PD ED PE NORMAL - Vitals Vital signs reviewed: Yes (tchy, 97% NRB) - General General: No: Alert and oriented X 3 (minimally resposnve) - HEENT HEENT: PERRL. No: Atraumatic - Neck Neck: Supple, no meningeal sign - Cardiac Cardiac: No murmur. No: RRR (tachy) - Respiratory Respiratory: Other (ineffectual shalow rapid resp, + gag) - Abdomen Abdomen: Soft, Non tender - Female Female : Deferred - Rectal Rectal: Deferred - Derm Derm: Normal color - Extremities Extremities: Other (+ edema LLE) - Neuro Neuro: No: Alert and oriented X 3 (minimmaly responsive to pain) Results - Vitals Vitals: Vital Signs - 24 hr 05/03/18 05/03/18 05/03/18 11:09 11:15 11:30 Temperature 36.5 C Heart Rate 119 H 107 H 110 H Respiratory 26 H 28 H 29 H Rate Blood Pressure 156/95 H 185/105 H 168/116 H O2 Saturation 98 100 90 L 05/03/18 05/03/18 05/03/18 11:45 12:00 12:14 Temperature Heart Rate 99 102 H 91 Respiratory 18 16 Rate Blood Pressure 136/74 H 178/124 H O2 Saturation 99 96 05/03/18 05/03/18 12:15 12:30 Temperature Heart Rate 94 92 Respiratory 16 16 Rate Blood Pressure 138/89 H 181/104 H O2 Saturation 98 100 Oxygen O2 Source Mechanical ventilator Oxygen Flow Rate 5 - Labs Labs: Laboratory Tests 05/03/18 05/03/18 05/03/18 11:18 11:18 11:18 WBC 15.4 H RBC 3.64 L Hgb 12.3 Hct 36.4 L MCV 100.1 H MCH 33.8 H MCHC 33.8 RDW 12.4 Plt Count 448 MPV 6.8 L Neut # (Auto) 13.4 H Lymph # (Auto) 0.6 L [place] # (Auto) 1.3 H Eos # (Auto) 0.1 Baso # (Auto) 0.0 Absolute Nucleated RBC 0.00 Nucleated RBC % 0.0 Manual Slide Review Indicated WBC Morphology NORMAL APPEARANCE Platelet Estimate NORMAL (130-450,000) Platelet Morphology NORMAL APPEARANCE RBC Morph Micro Appear NORMAL APPEARANCE Sodium 137 Potassium 4.2 Chloride 93 L Carbon Dioxide 38 H Anion Gap 6.0 BUN 37 H Creatinine 0.5 Estimated GFR (MDRD) 119 Glucose 188 H Lactic Acid Calcium 9.0 Troponin I < 0.04 B-Natriuretic Peptide 05/03/18 05/03/18 11:18 11:18 WBC RBC Hgb Hct MCV MCH MCHC RDW Plt Count MPV Neut # (Auto) Lymph # (Auto) [place] # (Auto) Eos # (Auto) Baso # (Auto) Absolute Nucleated RBC Nucleated RBC % Manual Slide Review WBC Morphology Platelet Estimate Platelet Morphology RBC Morph Micro Appear Sodium Potassium Chloride Carbon Dioxide Anion Gap BUN Creatinine Estimated GFR (MDRD) Glucose Lactic Acid 1.2 Calcium Troponin I B-Natriuretic Peptide 1216 H - Rads (name of study) CTH Radiology: See rad report (no acute) CXR Radiology: See rad report (interval increase in diffuse interstital pulm markings and bronchial wall thickening, could be seen in atypical pna (pt was recently txed for pna per family)) CXR2 Radiology: See rad report (ET OG in place) Procedures - Intubation Provider: Emergency physician Medications: Etomidate, Succinylcholine Blade: Sunday Tube: Size-enter number (7.5), Cuffed Route: Oral Confirmation: Direct visualization, Bilateral breath sounds, No abdominal breath sound, Pulse ox, Chest xray Complications: No compications PD MEDICAL DECISION MAKING - ED course ED course: post op pt with syncope and hypoxia - PE leads the ddx - but had CTPA for similar sx last night and it was a diagnostic study and neg for PE I called [facility] and they confirmed pt was getting her nebs and on her home O2 - she did have a sat of 80% on home O2 this AM - no aspiration per staff EKG abn but unchanged neg trop elev BNP and effusions on CXR and CT may have pulm edema CHF given elevated BNP and inc interstitial markings - but CXR does not appear to be severe enough to explain this profound resp impairment will need another echo etc suspect syncope and confusion are 2/2 resp status but will also check CTH (neg) UA + and pt already on augmentin and had a dose this AM family at bedside and updated spoke to hospitalist at 1230 family updated - Critical Care Time(min): 30 Time Includes: Direct patient care, Review records, Reassess patient, Document care, Coordinate care, Family consult for tx dec Data interpretation: Labs, ABG, CXR Procedures included in critical care time: Ventilator mgmt, See progress note Procedures excluded from critical care time: Intubation Departure - Departure Disposition: 66 [facility] DC/Xfer Clinical Impression: Respiratory failure Qualifiers: Chronicity: acute Respiratory failure complication: unspecified whether with hypoxia or hypercapnia Qualified Code(s): J96.00 - Acute respiratory failure, unspecified whether with hypoxia or hypercapnia Condition: Serious Discharge Date/Time: 05/03/18 14:37
[2018-05-03 11:28] LABS: BASOPHILS % (AUTO) 0.1 %; EOSINOPHILS # (AUTO) 0.1 10^3/uL (0.0-0.7); EOSINOPHILS % (AUTO) 0.7 %; HGB - HEMOGLOBIN 12.3 g/dL (12.0-16.0); LYMPHOCYTES # (AUTO) 0.6 10^3/uL (1.5-3.5); LYMPHOCYTES % (AUTO) 3.9 %; MEAN CORPUSCULAR HEMOGLOBIN 33.8 pg (27.0-31.0); MEAN CORPUSCULAR HGB CONC 33.8 g/dL (32.0-36.0); MEAN CORPUSCULAR VOLUME 100.1 fL (81.0-99.0); MEAN PLATELET VOLUME 6.8 fL (7.9-10.8); MONOCYTES # (AUTO) 1.3 10^3/uL (0.0-1.0); MONOCYTES % (AUTO) 8.6 %; NEUTROPHILS # (AUTO) 13.4 10^3/uL (1.5-6.6); NEUTROPHILS % (AUTO) 86.7 %; PLT - PLATELET COUNT 448 10^3/uL (130-450); RED BLOOD COUNT 3.64 10^6/uL (4.20-5.40); RED CELL DISTRIBUTION WIDTH 12.4 % (12.0-15.0); WHITE BLOOD COUNT 15.4 x10^3/uL (4.8-10.8)
--- NOTE | 2018-05-03 11:36 | XRAY Report ---
Reason: soa Procedure Date: 05/03/2018 Accession Number: [id number] / [id number] Procedure: XR - Chest 1 View X-Ray CPT Code: 67183 FULL RESULT: EXAM: CHEST RADIOGRAPHY EXAM DATE: 05/03/2018 11:19 AM. CLINICAL HISTORY: Shortness of air. COMPARISON: Chest 1 view 05/02/2018 8:13 PM. TECHNIQUE: 1 view. FINDINGS: Lungs/Pleura: High lung volumes are redemonstrated. There is an increase in coarse interstitial lung markings and bronchial wall thickening without focal consolidation. There are likely trace bilateral pleural effusions, similar to prior. No pneumothorax is detected. Mediastinum: The cardiomediastinal silhouette is similar to prior, borderline cardiomegaly and calcification of the aortic arch. Other: None. IMPRESSION: Interval increase in diffuse interstitial pulmonary markings and mild bronchial wall thickening. This can be seen with atypical pneumonia. RADIA
[2018-05-03 11:41] LABS: CREATININE 0.5 mg/dL (0.4-1.0)
[2018-05-03 12:00] LABS: PLATELET ESTIMATE, MANUAL NORMAL (130-450,000) (NORMAL); PLATELET MORPHOLOGY NORMAL APPEARANCE (NORMAL); RBC MORPHOLOGY (MULTIPLE) NORMAL APPEARANCE (NORMAL)
[2018-05-03] MEDS ORDERED: MIDAZOLAM 2 MG/2 ML VIAL IVP STA ×2 (12:00→13:11)
[2018-05-03] MEDS ORDERED: VECURONIUM 10 MG VIAL IVP STA (12:00)
[2018-05-03] MEDS ORDERED: WATER FOR INJECTION,STERILE 10 ML ONE (12:08)
--- NOTE | 2018-05-03 12:11 | XRAY Report ---
Reason: post ET and OG Procedure Date: 05/03/2018 Accession Number: [id number] / [id number] Procedure: XR - Chest 1 View X-Ray CPT Code: 65091 FULL RESULT: EXAM: CHEST RADIOGRAPHY EXAM DATE: 05/03/2018 11:53 AM. CLINICAL HISTORY: Post ET and OG. COMPARISON: 05/03/2018 11:08 AM. TECHNIQUE: 1 view. FINDINGS: Lung volumes are high. Coarse interstitial markings are again seen. The cardiomediastinal silhouette is stable including calcification of the aortic arch. No pneumothorax is detected. Suspected small pleural effusions, stable. Other: The endotracheal tube terminates 4.5 cm above the phuong, adequate positioning. The enteric tube terminates with tip and sidehole below the diaphragm, adequate positioning. IMPRESSION: Interval intubation and placement of enteric tube, both appear adequately positioned. RADIA
[2018-05-03] MEDS ORDERED: PROCHLORPERAZINE 10 MG/2 ML VIAL IVP PRN (13:00)
[2018-05-03] MEDS ORDERED: MIDAZOLAM 2 MG/2 ML VIAL ONE (13:04)
[2018-05-03] MEDS ORDERED: PROPOFOL 1000 MG/100 ML 100 ML IV STA (13:11)
[2018-05-03 13:53] LABS: ABG PH 7.45 (7.35-7.45)
[2018-05-03 13:54] LABS: ABG HCO3 34.8 mmol/L (22.0-26.0); ABG PCO2 52 mmHg (34-45); ABG TCO2 36.4 MMOL/L (21.0-29.0)
[2018-05-03 13:55] LABS: ABG BASE EXCESS 9.2 mmol/L (-2.0-3.0); ABG OXYGEN SATURATION 100 % (94-98); ALLEN TEST POSITIVE
[2018-05-03 13:59] LABS: ABG PO2 408 mmHg (80-100)
[2018-05-03] MEDS ORDERED: ceFAZolin 1 GM in SODIUM CHLORIDE 0.9% MINIBAG 100 ML IV SCH (14:00)
--- NOTE | 2018-05-03 15:15 | CT Report ---
Reason: ams syncope Procedure Date: 05/03/2018 Accession Number: [id number] / [id number] Procedure: CT - Head W/O CPT Code: FULL RESULT: EXAM: CT HEAD EXAM DATE: 05/03/2018 02:54 PM. CLINICAL HISTORY: Altered mental status, syncope. COMPARISON: None. TECHNIQUE: Multiaxial CT images were obtained from the foramen magnum to the vertex. Reformats: Sagittal and coronal. IV contrast: None. In accordance with CT protocol optimization, one or more of the following dose reduction techniques were utilized for this exam: automated exposure control, adjustment of mA and/or KV based on patient size, or use of iterative reconstructive technique. FINDINGS: Parenchyma: No intraparenchymal hemorrhage. No evidence of mass, midline shift, or CT findings of infarction. Mota-white differentiation is distinct. Extraaxial Spaces: Normal for age. No subdural or epidural collections identified. Ventricles: Normal in size and position. Sinuses and Orbits: Imaged paranasal sinuses, orbits, and mastoids show no significant abnormality. Bones: No evidence of fracture or calvarial defect. Other: None. IMPRESSION: No acute intracranial abnormality. RADIA
[2018-05-03] MEDS ORDERED: ACETAMINOPHEN 1,000 MG/100 ML 100 ML IV PRN (15:33)
[2018-05-03] MEDS: SODIUM CHLORIDE FLUSH 0.9% 10 ML SYRINGE IVP SCH ×2 (15:37→18:03)
[2018-05-03] MEDS: PANTOPRAZOLE 40 MG VIAL IVP SCH ×2 (15:39→20:57)
[2018-05-03] MEDS ORDERED: SODIUM CHLORIDE 0.9% MINIBAG 100 ML IV ONE (15:44)
[2018-05-03] MEDS: SODIUM CHLORIDE FLUSH 0.9% 10 ML SYRINGE IVP PRN (15:54)
[2018-05-03] MEDS: METOPROLOL 5 MG/5 ML VIAL IVP SCH ×2 (15:59→22:07)
[2018-05-03 17:24] LABS: BILIRUBIN,URINE NEGATIVE (NEGATIVE); GLUCOSE, URINE (UA) NEGATIVE (NEGATIVE); KETONES,URINE (UA) NEGATIVE (NEGATIVE); LEUKOCYTE ESTERASE, URINE SMALL (NEGATIVE); NITRITE,URINE NEGATIVE (NEGATIVE); OCCULT BLOOD,URINE LARGE (NEGATIVE); PH,URINE 5.5 PH (5.0-7.5); PROTEIN,URINE 30 mg/dL (NEGATIVE); UROBILINOGEN,URINE 0.2 (NORMAL) E.U./dL (NORMAL)
--- NOTE | 2018-05-03 17:33 | HISTORY & PHYSICAL EXAMINATION ---
DATE OF SERVICE: 05/03/2018 Physician: Roxann Barragan MD HISTORY OF PRESENT ILLNESS: This is an 78-year-old white female with a history of COPD, ex-smoker who quit 5 years ago, uses home oxygen at bedtime, has a history of paroxysmal atrial fibrillation, and is on Eliquis and was recently admitted here after a fall and hip fracture requiring hip surgery. She was hospitalized from 04/24/2018 to 05/02/2018. She had trouble postoperatively with atrial fibrillation with rapid ventricular rate and required escalating doses of IV beta blockers and Metoprolol succinate orally, was started on digoxin and sent out on Metoprolol Succinate and Digoxin. She had a post-op pneumonia and was just discharged yesterday, to have Physical Therapy rehab to [facility]. Then yesterday at [facility] she suffered syncope when she stood up to go to the toilet, she slumped down to the ground, she was brought back to the emergency room here and had a workup for the syncope including a CTA of the chest to rule out pulmonary embolism, which was negative. She did have findings of a UTI, she received hydration and was sent back to [facility]. The son and daughter told me that she started to be short of breath last night. This morning while she was walking with physical therapy, she had another syncopal episode, the details of that are not known nor are the vital signs on the scene. When the ambulance arrived, she was found to be hypoxic with desaturation into the 50- 60% range and she was brought back to the emergency room. She had improvement in respiratory status with a nonrebreather mask, but then again desaturated and required intubation. She is now intubated and being admitted to the ICU. The daughter is able to tell me that last night she did get her sleeping pill and an oxycodone tablet for pain. We have no records of the vital signs that were documented during her short stay at [facility]. PAST MEDICAL HISTORY 1. COPD on home oxygen, mostly at night. 2. Ex-smoker who quit 5 years ago. 3. Paroxysmal atrial fibrillation on Eliquis. 4. Recent fall with a hip fracture and successful hip surgery. 5. Postop atrial fibrillation with rapid ventricular response and pnemonia. ALLERGIES: DILTIAZEM WHICH CAUSED A RASH. MEDICATIONS 1. Prednisone 20 mg daily on a tapering schedule, the speed of the taper is not known. 2. Spiriva inhaler daily. 3. Sublingual nitroglycerin p.r.n. 4. Toprol-XL 150 mg b.i.d. 5. Lisinopril 20 mg daily. 6. Xopenex inhaler p.r.n. 7. Atrovent inhaler p.r.n. 8. Advair inhaler b.i.d. 9. Digoxin 125 mcg daily. 10. Eliquis 2.5 b.i.d. 11. Augmentin 500 b.i.d. for the pneumonia and the UTI 12. ProAir inhaler p.r.n. 13. Oxycodone p.r.n. FAMILY HISTORY: No inherited diseases. SOCIAL HISTORY: She lives with her and grandson and has dogs and birds. She is an ex-smoker who quit 5 years ago. She drinks no alcohol, has no illicit drug use history. REVIEW OF SYSTEMS: Comprehensive review of systems was performed by talking to the son and daughter, the pertinent positives are in the HPI, the rest are negative. PHYSICAL EXAMINATION GENERAL: Sedated, intubated, white female. VITAL SIGNS: Blood pressure 128/68, heart rate 85-90 in atrial fibrillation, afebrile, 100% saturation on the ventilator. HEENT: Shows moist oral mucosa. NECK: Without JVD in a supine position. CHEST: Increased AP diameter and scattered wheezes, but good air movement and no rales or rhonchi. HEART: Heart sounds are distant. No audible murmur. ABDOMEN: Soft, nontender. Decreased bowel sounds. EXTREMITIES: No edema. NEUROLOGIC: She is currently sedated. LABORATORIES: Normal electrolytes, BUN is 37, creatinine 0.5. Lactic acid normal at 1.2. Magnesium not done. Troponin is normal x2, BNP on the day of discharge (yesterday) was 995 and on today's admission 1216. INR was 1.1 during the last hospitalization, but this is not reliable in a person on Eliquis. White blood count 15.4, but she is on steroids, hemoglobin 12.3 with an MCV of 100, platelet count normal at 448. Her blood gas today shows pH 7.45, pCO2 of 52, pO2 of 400. Chest x-ray: interstitial edema versus atypical pneumonia. Comparing that to an old chest x-ray from the last recent admission, she had a left lower lobe infiltrate and possible interstitial edema. IMPRESSION/DIAGNOSES 1. Pulmonary edema versus atypical pneumonia. Recent hospital-acquired pneumonia. 2. Chronic obstructive pulmonary disease on home oxygen. 3. Chronic atrial fibrillation, on Eliquis with recently escalated medication for rate control. 4. Urinary tract infection, on Augmentin. 5. Syncope x2, both when she was obtaining an upright posture. 6. Recent hip fracture and successful hip surgery. ASSESSMENT: Admit the patient to the ICU on telemetry. Continue with ventilator support, RT to adjust and attempt to titrate down her settings. Continue with gentle diuresis for her pulmonary edema. Continue with rate control medications, beta garima and digoxin if needed, will be used IV. Recheck an Echo because of the new pulmonary edema including a recheck of her PA pressure that was elevated when it was done preop on the last admission. Begin H2 blockers, NG to intermittent suction and Richey for accurate I's and O's in a critically ill patient. Continue with iv antibiotics for UTI management and finish the treatment for her hospital-acquired pneumonia with IV antibiotics. Follow her pulmonary status with daily chest x-rays. Continue iv steroids to prevent Addisonian crisis. CODE STATUS: FULL CODE. DEEP VENOUS THROMBOSIS PROPHYLAXIS: Lovenox at therapeutic doses for both DVT prophylaxis and atrial fibrillation anticoagulation while she cannot take Eliquis. ATTESTATION: The patient is expected to be discharged or transferred to another facility within 96 hours: Yes. TD: 05/03/2018 17:09 LONG
[2018-05-03] MEDS: LEVALBUTEROL 1.25 MG/3 ML NEB INH PRN (17:37)
[2018-05-03] MEDS: IPRATROPIUM 0.2 MG/ML NEB INH PRN (17:37)
[2018-05-03] MEDS: ACETAMINOPHEN 1,000 MG/100 ML 100 ML IV PRN ×2 (17:39→23:43)
[2018-05-03 17:46] LABS: AMORPHOUS SEDIMENT,UR Marked /LPF; BACTERIA,URINE None Seen /HPF (None Seen); CLARITY,URINE CLOUDY (CLEAR); RBC,URINE TNTC /HPF (0-5); SQUAMOUS EPITHELIAL CELL,UR NONE SEEN (<= Few)
[2018-05-03] MEDS ORDERED: SODIUM CHLORIDE 0.9% 500 ML IV PRN (18:04)
[2018-05-03] MEDS: FUROSEMIDE 40 MG/4 ML VIAL IVP SCH (18:40)
[2018-05-03] MEDS ORDERED: VANCOMYCIN PER PHARMACY 100 GM in SODIUM CHLORIDE 0.9% 250 ML IV SCH (19:00)
[2018-05-03] MEDS: VANCOMYCIN INJ 1 GM in SODIUM CHLORIDE 0.9% 250 ML IV SCH (19:22)
[2018-05-03] MEDS: ENOXAPARIN 60 MG/0.6 ML SYRINGE SUBQ SCH (20:57)
[2018-05-03] MEDS ORDERED: CEFEPIME 2 GM in SODIUM CHLORIDE 0.9% MINIBAG 100 ML IV SCH (21:00)
[2018-05-03] MEDS: PROPOFOL 1000 MG/100 ML 100 ML IV STA (22:07)
[2018-05-03] MEDS: methylPREDNISolone SUCCINATE 40 MG/ML VIAL IVP SCH (22:07)
[2018-05-03] MEDS: MIDAZOLAM 2 MG/2 ML VIAL IVP PRN (22:27)
[2018-05-04] MEDS: SODIUM CHLORIDE FLUSH 0.9% 10 ML SYRINGE IVP SCH ×3 (00:38→17:22)
[2018-05-04] MEDS ORDERED: PROPOFOL 1000 MG/100 ML 100 ML IV ONE (02:09)
[2018-05-04] MEDS: MIDAZOLAM 2 MG/2 ML VIAL IVP PRN ×7 (02:59→23:55)
[2018-05-04] MEDS: PROPOFOL 1000 MG/100 ML 100 ML IV STA ×2 (04:56→12:31)
[2018-05-04 05:08] LABS: ABG BASE EXCESS 12.6 mmol/L (-2.0-3.0); ABG HCO3 37.4 mmol/L (22.0-26.0); ABG OXYGEN SATURATION 95 % (94-98); ABG PCO2 49 mmHg (34-45); ABG PO2 69 mmHg (80-100); ABG TCO2 38.9 MMOL/L (21.0-29.0); ALLEN TEST POSITIVE
[2018-05-04 05:18] LABS: ALBUMIN/GLOBULIN RATIO 1.3 (1.0-2.2); BILIRUBIN,TOTAL 1.2 mg/dL (0.2-1.0); CALCIUM 8.5 mg/dL (8.5-10.3); CREATININE 0.6 mg/dL (0.4-1.0); PHOSPHORUS 3.2 mg/dL (2.5-4.6); TOTAL PROTEIN 5.3 g/dL (6.7-8.2)
[2018-05-04 05:25] LABS: BASOPHILS % (AUTO) 0.1 %; HGB - HEMOGLOBIN 10.6 g/dL (12.0-16.0); LYMPHOCYTES # (AUTO) 0.5 10^3/uL (1.5-3.5); LYMPHOCYTES % (AUTO) 6.4 %; MEAN CORPUSCULAR HEMOGLOBIN 34.7 pg (27.0-31.0); MEAN CORPUSCULAR HGB CONC 34.7 g/dL (32.0-36.0); MEAN CORPUSCULAR VOLUME 99.9 fL (81.0-99.0); MEAN PLATELET VOLUME 7.2 fL (7.9-10.8); MONOCYTES # (AUTO) 0.6 10^3/uL (0.0-1.0); NEUTROPHILS # (AUTO) 6.7 10^3/uL (1.5-6.6); NEUTROPHILS % (AUTO) 85.5 %; PLT - PLATELET COUNT 336 10^3/uL (130-450); RED BLOOD COUNT 3.06 10^6/uL (4.20-5.40); RED CELL DISTRIBUTION WIDTH 11.9 % (12.0-15.0); WHITE BLOOD COUNT 7.9 x10^3/uL (4.8-10.8)
[2018-05-04] MEDS: METOPROLOL 5 MG/5 ML VIAL IVP SCH ×4 (06:11→21:45)
[2018-05-04] MEDS: methylPREDNISolone SUCCINATE 40 MG/ML VIAL IVP SCH ×3 (06:11→21:45)
[2018-05-04] MEDS: FUROSEMIDE 40 MG/4 ML VIAL IVP SCH (06:11)
[2018-05-04] MEDS: ACETAMINOPHEN 1,000 MG/100 ML 100 ML IV PRN ×3 (07:43→21:58)
[2018-05-04] MEDS: SODIUM CHLORIDE FLUSH 0.9% 10 ML SYRINGE IVP PRN ×2 (08:19→10:44)
[2018-05-04] MEDS: VANCOMYCIN INJ 1 GM in SODIUM CHLORIDE 0.9% 250 ML IV SCH ×2 (08:25→20:12)
[2018-05-04 08:45] LABS: ABG PH 7.47 (7.35-7.45)
[2018-05-04 08:46] LABS: ABG BASE EXCESS 11.1 mmol/L (-2.0-3.0); ABG HCO3 36.3 mmol/L (22.0-26.0); ABG OXYGEN SATURATION 96 % (94-98); ABG PCO2 51 mmHg (34-45); ABG PO2 79 mmHg (80-100); ABG TCO2 37.9 MMOL/L (21.0-29.0); ALLEN TEST POSITIVE
[2018-05-04] MEDS: IPRATROPIUM 0.2 MG/ML NEB INH PRN ×3 (08:53→21:38)
[2018-05-04] MEDS: LEVALBUTEROL 1.25 MG/3 ML NEB INH PRN ×3 (08:53→21:38)
[2018-05-04] MEDS ORDERED: cefTRIAXone 1 GM in SODIUM CHLORIDE 0.9% MINIBAG 100 ML IV SCH (09:00)
--- NOTE | 2018-05-04 09:02 | XRAY Report ---
Reason: CHF vs atypical pneumonia Procedure Date: 05/04/2018 Accession Number: [id number] / [id number] Procedure: XR - Chest 1 View X-Ray CPT Code: 24314 FULL RESULT: EXAM: CHEST RADIOGRAPHY EXAM DATE: 05/04/2018 08:52 AM. CLINICAL HISTORY: CHF versus atypical pneumonia. COMPARISON: 05/03/2018. TECHNIQUE: 1 view. FINDINGS: Lungs/Pleura: Increased lung volumes with bilateral small pleural effusions and coarse interstitial markings. No lobar consolidation. No pneumothorax. Mediastinum: Stable cardiomediastinal silhouette including calcified tortuous aortic arch. Other: Endotracheal tube and enteric tube in good position, ET tube approximately 4.6 cm above the phuong. The finding is partially obscured by overlying tubes and lines but there may be a left midline which terminates in the axillary region, that would be appropriate placement for this line. IMPRESSION: Possibly slight interval increase in small bilateral pleural effusions. Otherwise, overall stable examination with appropriately positioned support apparatus. RADIA
[2018-05-04] MEDS: DEXTROSE 5%-0.9% NACL 1,000 ML IV SCH ×2 (09:12→17:20)
[2018-05-04] MEDS: ENOXAPARIN 60 MG/0.6 ML SYRINGE SUBQ SCH ×2 (09:20→21:45)
[2018-05-04] MEDS: PANTOPRAZOLE 40 MG VIAL IVP SCH ×2 (10:44→21:45)
[2018-05-04] MEDS: CEFEPIME 2 GM in SODIUM CHLORIDE 0.9% MINIBAG 100 ML IV SCH ×2 (10:59→23:17)
--- NOTE | 2018-05-04 12:17 | PROVIDER PROGRESS NOTE ---
Assessment/Plan - Problem List (1) Respiratory failure Qualifiers: Chronicity: acute Respiratory failure complication: unspecified whether with hypoxia or hypercapnia Qualified Code(s): J96.00 - Acute respiratory failure, unspecified whether with hypoxia or hypercapnia Assessment/Plan: Her presentation and labs were consistent with pulmonary edema and atypical PNA. She is on the vent plus getting steroids, inhalers, antibiotics and was diuresed. Will follow ABG and consider a CPAP trial for extubation later today. (2) Metabolic alkalosis Assessment/Plan: Her ABG is consistent with contraction alkalosis. She is intravascularly dry, despite pulm edema and liver congestion. Will stop Lasix, start iv fluids. Monitor ABG and BMP for volume status. (3) Atypical pneumonia Assessment/Plan: She is on empiric iv antibiotics for HCAP. (4) Paroxysmal atrial fibrillation Assessment/Plan: HR is controlled on iv Lopressor. She is on therapeutic Lovenox doses. (5) Status post hip surgery Assessment/Plan: Patient will still need a course of PT at a SNF, once she is [facility], for the recent hip surgery after a fracture suffered from a fall at home last week. - Current Meds Current Meds: Current Medications Generic Name Dose Route Start Last Admin Trade Name Freq PRN Reason Stop Dose Admin Enoxaparin Sodium 60 mg 05/03/18 21:00 05/04/18 09:20 Lovenox SUBQ 60 mg BID MANUEL Administration Acetaminophen 100 mls @ 400 mls/hr 05/03/18 15:34 05/04/18 07:58 Ofirmev IV Infused Q6HR PRN Infusion Pain or Fever > 38C (100.4F) Sodium Chloride 500 mls @ 0 mls/hr 05/03/18 18:04 05/04/18 09:21 Normal Saline 0.9% IV Infused Q24H PRN Infusion TKO RATE TKO Vancomycin HCl 1 gm/ Sodium 250 mls @ 167 mls/hr 05/03/18 20:00 05/04/18 09:55 Chloride IV Infused Q12H MANUEL Infusion Propofol 100 mls @ 3.63 mls/hr 05/03/18 20:21 05/04/18 11:41 Diprivan IV 05/04/18 23:53 40 mcg/kg/min TITR STA 14.52 mls/hr Titration Protocol 10 MCG/KG/MIN Dextrose/Sodium Chloride 1,000 mls @ 125 mls/hr 05/04/18 09:00 05/04/18 09:12 D5ns IV 125 mls/hr .Q8H MANUEL Administration Cefepime HCl 2 gm/ Sodium 100 mls @ 200 mls/hr 05/04/18 11:00 05/04/18 11:32 Chloride IV Infused 1100,2300 MANUEL Infusion Ipratropium [place] 0.5 mg 05/03/18 13:48 05/04/18 08:53 Atrovent INH 0.5 mg RTQ4H PRN Administration Shortness of Air/Wheezing Levalbuterol HCl 1.25 mg 05/03/18 13:48 05/04/18 08:53 Xopenex INH 1.25 mg Q4H PRN Administration Shortness of Air/Wheezing Methylprednisolone 40 mg 05/03/18 22:00 05/04/18 06:11 Solu-Medrol (40mg Vial) IVP 40 mg TID MANUEL Administration Metoprolol Tartrate 5 mg 05/03/18 14:00 05/04/18 06:11 Lopressor Inj IVP 5 mg Q8HR MANUEL Administration Midazolam HCl 2 mg 05/03/18 16:16 05/04/18 11:45 Versed IVP 2 mg Q1H PRN Administration Anxiety Pantoprazole Sodium 40 mg 05/03/18 14:00 05/04/18 10:44 Protonix IVP 40 mg BID MANUEL Administration Sodium Chloride 10 ml 05/03/18 17:00 05/04/18 09:32 Normal Saline Flush 0.9% IVP Not Given 0100,0900,1700 MANUEL Sodium Chloride 10 ml 05/03/18 13:00 05/04/18 10:44 Normal Saline Flush 0.9% IVP 10 ml PRN PRN Administration NEEDED PER PROVIDER ORDERS - Lab Result Fish Bone Diagrams: 05/04/18 04:25 05/04/18 04:25 - Additional Planning My Orders: My Active Orders 05/03/18 13:00 Activity Orders [RC] Routine Daily Weight [RC] 0600 IO [RC] Q1HR Initiate Bowel Care Protocol [RC] QSHIFT Initiate Flu Vaccine Screening [RC] ONCE Initiate ICU Electrolyte Prot. [RC] .protocol Initiate Line Care Protocol [RC] .protocol Initiate Line Care Protocol [RC] .protocol Initiate Personal Care Protoco [RC] .protocol Initiate Pneumonia Vaccine Scr [RC] ONCE Vital Signs [RC] Q1HR Prochlorperazine Inj [Compazine Inj] 10 mg IVP Q6HR PRN Sodium Chloride Flush 0.9% [Normal Saline Flush 0.9%] 10 ml IVP PRN PRN Code Status [OTHERS] Routine Condition of Patient [OTHERS] Routine DVT Prophylaxis [OTHERS] Routine 05/03/18 13:05 NPO [DIET] 05/03/18 13:06 Richey Insertion [RC] Routine Oral Care - Nursing [RC] Routine Telemetry- [RC] Routine Turn and Reposition [RC] Routine 05/03/18 13:12 Echo Transthoracic Complete [ECHO] Routine 05/03/18 13:48 Ipratropium [Atrovent] 0.5 mg INH RTQ4H PRN Levalbuterol [Xopenex] 1.25 mg INH Q4H PRN 05/03/18 13:49 Nebulizer/MDI Tx. [RC] .QID 05/03/18 14:00 Metoprolol Inj [Lopressor Inj] 5 mg IVP Q8HR Pantoprazole [Protonix] 40 mg IVP BID 05/03/18 15:30 CUL, URINE [RM] Routine 05/03/18 15:34 Acetaminophen 1,000 mg/100 ml [Ofirmev] 100 ml IV Q6HR 05/03/18 16:16 Midazolam [Versed] 2 mg IVP Q1H PRN 05/03/18 17:00 Sodium Chloride Flush 0.9% [Normal Saline Flush 0.9%] 10 ml IVP 0100,0900,1700 05/03/18 18:04 Sodium Chloride 0.9% [Normal Saline 0.9%] 500 ml IV Q24H 05/03/18 18:09 Restraints Safety Checks [RC] Q1H Restraints [RC] Q24H 05/03/18 20:45 Ventilator Setting Changes [RC] .PRN 05/03/18 20:47 Airway Suctioning [Suction] [RC] .PRN 05/03/18 20:48 Initial Ventilator Settings [RC] .ONCE 05/03/18 21:00 Enoxaparin [Lovenox] 60 mg SUBQ BID 05/03/18 22:00 methylPREDNISolone SUCCINATE [SOLU-Medrol (40MG VIAL)] 40 mg IVP TID 05/04/18 08:19 Arterial Blood Gases - RT [RC] .ONCE 05/04/18 09:00 Dextrose 5%-0.9% NaCl [D5ns] 1,000 ml IV 125 mls/hr 05/04/18 11:00 Cefepime 2 gm Sodium Chloride 0.9% Minibag [Normal Saline 0.9% Minibag] 100 ml IV 1100,2300 05/05/18 05:00 ABG - ARTERIAL BLOOD GAS [BG] DAILYLAB CBC - COMP BLD CT W/AUTO DIFF [HEME] DAILYLAB COMPREHENSIVE METABOLIC PANEL [CHEM] DAILYLAB MAGNESIUM [CHEM] DAILYLAB PHOSPHORUS [CHEM] DAILYLAB 05/05/18 07:30 VANCOMYCIN TROUGH [CHEM] Timed 05/05/18 09:00 Chest 1 View X-Ray [XR] DAILY 05/06/18 05:00 ABG - ARTERIAL BLOOD GAS [BG] DAILYLAB CBC - COMP BLD CT W/AUTO DIFF [HEME] DAILYLAB COMPREHENSIVE METABOLIC PANEL [CHEM] DAILYLAB 05/06/18 09:00 Chest 1 View X-Ray [XR] DAILY 05/07/18 05:00 CBC - COMP BLD CT W/AUTO DIFF [HEME] DAILYLAB COMPREHENSIVE METABOLIC PANEL [CHEM] DAILYLAB Subjective - Subjective Patient Reports: Other (Sedated and paralyzed, on vent, moves when meds wear off) Objective Vital Signs: Vital Signs - 24 hr 05/03/18 05/03/18 05/03/18 12:15 12:30 13:00 Temperature Heart Rate 94 92 90 Heart Rate [ Monitoring electrodes] Respiratory 16 16 16 Rate Blood Pressure 138/89 H 181/104 H 181/116 H Blood Pressure [Right Brachial artery] O2 Saturation 98 100 100 05/03/18 05/03/18 05/03/18 13:23 14:03 15:13 Temperature 37.3 C Heart Rate 94 82 Heart Rate [ 88 Monitoring electrodes] Respiratory 16 16 16 Rate Blood Pressure 147/89 H 110/62 Blood Pressure 133/67 H [Right Brachial artery] O2 Saturation 100 99 100 05/03/18 05/03/18 05/03/18 15:30 15:46 15:59 Temperature Heart Rate 90 Heart Rate [ 82 Monitoring electrodes] Respiratory 16 Rate Blood Pressure 128/68 Blood Pressure 133/69 H [Right Brachial artery] O2 Saturation 99 05/03/18 05/03/18 05/03/18 16:00 17:00 17:40 Temperature Heart Rate 88 Heart Rate [ 85 89 Monitoring electrodes] Respiratory 16 16 16 Rate Blood Pressure Blood Pressure 82/51 L 131/61 H [Right Brachial artery] O2 Saturation 100 98 05/03/18 05/03/18 05/03/18 17:56 18:00 19:00 Temperature Heart Rate 87 Heart Rate [ 80 85 Monitoring electrodes] Respiratory 16 16 Rate Blood Pressure Blood Pressure 125/62 116/65 [Right Brachial artery] O2 Saturation 97 96 05/03/18 05/03/18 05/03/18 19:26 20:00 20:35 Temperature 37.6 C H Heart Rate 91 Heart Rate [ 84 87 Monitoring electrodes] Respiratory 16 16 Rate Blood Pressure Blood Pressure 89/52 L [Right Brachial artery] O2 Saturation 96 95 05/03/18 05/03/18 05/03/18 21:00 22:07 22:15 Temperature Heart Rate Heart Rate [ 83 83 Monitoring electrodes] Respiratory 16 16 Rate Blood Pressure 88/44 L Blood Pressure 132/54 H 121/56 L [Right Brachial artery] O2 Saturation 98 99 05/03/18 05/04/18 05/04/18 23:00 00:00 00:53 Temperature 37.5 C Heart Rate 85 Heart Rate [ 93 78 Monitoring electrodes] Respiratory 16 16 Rate Blood Pressure Blood Pressure 111/57 L 107/57 L [Right Brachial artery] O2 Saturation 97 97 05/04/18 05/04/18 05/04/18 01:00 02:00 03:00 Temperature Heart Rate Heart Rate [ 89 85 99 Monitoring electrodes] Respiratory 16 16 16 Rate Blood Pressure Blood Pressure 114/61 93/50 L 123/55 L [Right Brachial artery] O2 Saturation 96 97 98 05/04/18 05/04/18 05/04/18 04:00 05:00 05:10 Temperature Heart Rate 98 Heart Rate [ 99 96 Monitoring electrodes] Respiratory 16 16 Rate Blood Pressure Blood Pressure 90/52 L 150/72 H [Right Brachial artery] O2 Saturation 99 99 05/04/18 05/04/18 05/04/18 06:00 06:11 07:00 Temperature Heart Rate Heart Rate [ 89 94 Monitoring electrodes] Respiratory 14 14 Rate Blood Pressure 133/66 H Blood Pressure 133/66 H 101/62 [Right Brachial artery] O2 Saturation 98 98 05/04/18 05/04/18 05/04/18 08:00 08:09 08:53 Temperature 37.3 C Heart Rate 90 78 Heart Rate [ 94 Monitoring electrodes] Respiratory 18 14 Rate Blood Pressure Blood Pressure 144/80 H [Right Brachial artery] O2 Saturation 100 05/04/18 05/04/18 05/04/18 09:00 09:02 10:00 Temperature Heart Rate Heart Rate [ 80 93 Monitoring electrodes] Respiratory 14 22 Rate Blood Pressure Blood Pressure 144/80 H 99/62 144/75 H [Right Brachial artery] O2 Saturation 100 98 05/04/18 05/04/18 05/04/18 10:14 11:00 11:47 Temperature Heart Rate 96 Heart Rate [ 85 Monitoring electrodes] Respiratory 26 H Rate Blood Pressure Blood Pressure 96/51 L 135/71 H [Right Brachial artery] O2 Saturation 97 05/04/18 12:00 Temperature 37.1 C Heart Rate Heart Rate [ 95 Monitoring electrodes] Respiratory 14 Rate Blood Pressure Blood Pressure 107/59 L [Right Brachial artery] O2 Saturation 100 Oxygen O2 Source Mechanical ventilator Oxygen Flow Rate 5 I&O (Last 24 Hrs): Intake and Output Totals x24h 05/02/18 05/03/18 05/04/18 23:59 23:59 23:59 Intake Total 645.568 744.836 Output Total 3030 1665 Balance -2384.432 -920.164 General: Other (Sedated and paralyzed) HEENT: Other (ET tube in place) Neuro: Other (Sedared and paralyzed for the vent) Cardiovascular: Regular rate, Other (2/6 syst murmur at LLSB) Respiratory: No respiratory distress, Breath sounds nml Abdomen: Soft Extremities: No edema - Results Results: Laboratory Results WBC 7.9 x10^3/uL (4.8-10.8) 05/04/18 04:25 RBC 3.06 10^6/uL (4.20-5.40) L 05/04/18 04:25 Hgb 10.6 g/dL (12.0-16.0) L 05/04/18 04:25 Hct 30.6 % (37.0-47.0) L 05/04/18 04:25 MCV 99.9 fL (81.0-99.0) H 05/04/18 04:25 MCH 34.7 pg (27.0-31.0) H 05/04/18 04:25 MCHC 34.7 g/dL (32.0-36.0) 05/04/18 04:25 RDW 11.9 % (12.0-15.0) L 05/04/18 04:25 Plt Count 336 10^3/uL (130-450) 05/04/18 04:25 MPV 7.2 fL (7.9-10.8) L 05/04/18 04:25 Neut # (Auto) 6.7 10^3/uL (1.5-6.6) H 05/04/18 04:25 Lymph # (Auto) 0.5 10^3/uL (1.5-3.5) L 05/04/18 04:25 [place] # (Auto) 0.6 10^3/uL (0.0-1.0) 05/04/18 04:25 Eos # (Auto) 0.0 10^3/uL (0.0-0.7) 05/04/18 04:25 Baso # (Auto) 0.0 10^3/uL (0.0-0.1) 05/04/18 04:25 Absolute Nucleated RBC 0.00 x10^3/uL 05/04/18 04:25 Nucleated RBC % 0.0 /100WBC 05/04/18 04:25 Manual Slide Review Indicated 05/03/18 11:18 WBC Morphology NORMAL APPEARANCE (NORMAL) 05/03/18 11:18 Platelet Estimate NORMAL (130-450,000) (NORMAL) 05/03/18 11:18 Platelet Morphology NORMAL APPEARANCE (NORMAL) 05/03/18 11:18 RBC Morph Micro Appear NORMAL APPEARANCE (NORMAL) 05/03/18 11:18 Bld Gas Analysis Time 0934 05/04/18 08:34 Sample Site RIGHT RADIAL 05/04/18 08:34 ABG pH 7.47 (7.35-7.45) H 05/04/18 08:34 ABG pCO2 51 mmHg (34-45) H 05/04/18 08:34 ABG pO2 79 mmHg (80-100) L 05/04/18 08:34 ABG HCO3 36.3 mmol/L (22.0-26.0) H 05/04/18 08:34 ABG Total CO2 37.9 MMOL/L (21.0-29.0) H 05/04/18 08:34 ABG O2 Saturation 96 % (94-98) 05/04/18 08:34 ABG Base Excess 11.1 mmol/L (-2.0-3.0) H 05/04/18 08:34 Loki Test POSITIVE 05/04/18 08:34 Respiration Rate 14 b/min 05/04/18 08:34 O2 Delivery Device VENTILATOR 05/04/18 08:34 Vent Mode SIMV 05/04/18 08:34 FiO2 35.00 05/04/18 08:34 Tidal Volume 425 mL 05/04/18 08:34 PEEP 5 cmH2O 05/04/18 08:34 Pressure Support Vent 7 cmH2O 05/04/18 08:34 Sodium 137 mmol/L (135-145) 05/04/18 04:25 Potassium 3.8 mmol/L (3.5-5.0) 05/04/18 04:25 Chloride 93 mmol/L (101-111) L 05/04/18 04:25 Carbon Dioxide 35 mmol/L (21-32) H 05/04/18 04:25 Anion Gap 9.0 (6-13) 05/04/18 04:25 BUN 37 mg/dL (6-20) H 05/04/18 04:25 Creatinine 0.6 mg/dL (0.4-1.0) 05/04/18 04:25 Estimated GFR (MDRD) 96 (>89) 05/04/18 04:25 Glucose 130 mg/dL (70-100) H 05/04/18 04:25 Lactic Acid 1.2 mmol/L (0.5-2.2) 05/03/18 11:18 Calcium 8.5 mg/dL (8.5-10.3) 05/04/18 04:25 Phosphorus 3.2 mg/dL (2.5-4.6) 05/04/18 04:25 Magnesium 2.0 mg/dL (1.7-2.8) 05/04/18 04:25 Total Bilirubin 1.2 mg/dL (0.2-1.0) H 05/04/18 04:25 AST 44 IU/L (10-42) H 05/04/18 04:25 ALT 89 IU/L (10-60) H 05/04/18 04:25 Alkaline Phosphatase 82 IU/L (42-121) 05/04/18 04:25 Troponin I < 0.04 ng/mL (<0.49) 05/04/18 04:25 B-Natriuretic Peptide 538 pg/mL (5-100) H 05/04/18 04:25 Total Protein 5.3 g/dL (6.7-8.2) L 05/04/18 04:25 Albumin 3.0 g/dL (3.2-5.5) L 05/04/18 04:25 Globulin 2.3 g/dL (2.1-4.2) 05/04/18 04:25 Albumin/Globulin Ratio 1.3 (1.0-2.2) 05/04/18 04:25 Urine Color YELLOW 05/03/18 15:30 Urine Clarity CLOUDY (CLEAR) 05/03/18 15:30 Urine pH 5.5 PH (5.0-7.5) 05/03/18 15:30 Ur Specific [place] 1.025 (1.002-1.030) 05/03/18 15:30 Urine Protein 30 mg/dL (NEGATIVE) H 05/03/18 15:30 Urine Glucose (UA) NEGATIVE mg/dL (NEGATIVE) 05/03/18 15:30 Urine Ketones NEGATIVE mg/dL (NEGATIVE) 05/03/18 15:30 Urine Occult Blood LARGE (NEGATIVE) H 05/03/18 15:30 Urine Nitrite NEGATIVE (NEGATIVE) 05/03/18 15:30 Urine Bilirubin NEGATIVE (NEGATIVE) 05/03/18 15:30 Urine Urobilinogen 0.2 (NORMAL) E.U./dL (NORMAL) 05/03/18 15:30 Ur Leukocyte Esterase SMALL (NEGATIVE) H 05/03/18 15:30 Urine RBC TNTC /HPF (0-5) H 05/03/18 15:30 Urine WBC 6-10 /HPF (0-5) H 05/03/18 15:30 Ur Squamous Epith Cells NONE SEEN (<= Few) 05/03/18 15:30 Amorphous Sediment Marked /LPF 05/03/18 15:30 Urine Bacteria None Seen /HPF (None Seen) 05/03/18 15:30 Urine Culture Comments INDICATED 05/03/18 15:30
[2018-05-04] MEDS: PROPOFOL 1000 MG/100 ML 100 ML IV SCH ×2 (13:07→18:16)
[2018-05-04] MEDS: CHLORHEXIDINE GLUCONATE 15 ML UDC PO SCH ×2 (13:30→21:45)
[2018-05-04] MEDS ORDERED: SODIUM CHLORIDE INHALATION 3 ML NEB ONE (14:20)
[2018-05-04 15:04] LABS: ABG BASE EXCESS 11.2 mmol/L (-2.0-3.0); ABG HCO3 36.3 mmol/L (22.0-26.0); ABG OXYGEN SATURATION 95 % (94-98); ABG PCO2 50 mmHg (34-45); ABG PH 7.48 (7.35-7.45); ABG PO2 76 mmHg (80-100); ABG TCO2 37.8 MMOL/L (21.0-29.0); ALLEN TEST POSITIVE
[2018-05-05] MEDS: PROPOFOL 1000 MG/100 ML 100 ML IV SCH ×3 (00:53→11:00)
[2018-05-05] MEDS: SODIUM CHLORIDE FLUSH 0.9% 10 ML SYRINGE IVP SCH ×4 (00:54→21:01)
[2018-05-05] MEDS: MIDAZOLAM 2 MG/2 ML VIAL IVP PRN ×2 (01:13→02:26)
[2018-05-05] MEDS: DEXTROSE 5%-0.9% NACL 1,000 ML IV SCH ×4 (02:12→22:38)
[2018-05-05] MEDS ORDERED: LORazepam 2 MG/ML VIAL IVP PRN (02:28)
[2018-05-05 04:57] LABS: BASOPHILS % (AUTO) 0.1 %; HGB - HEMOGLOBIN 9.8 g/dL (12.0-16.0); LYMPHOCYTES # (AUTO) 0.4 10^3/uL (1.5-3.5); LYMPHOCYTES % (AUTO) 4.1 %; MEAN CORPUSCULAR HEMOGLOBIN 33.3 pg (27.0-31.0); MEAN CORPUSCULAR HGB CONC 32.9 g/dL (32.0-36.0); MEAN CORPUSCULAR VOLUME 101.1 fL (81.0-99.0); MONOCYTES # (AUTO) 0.7 10^3/uL (0.0-1.0); MONOCYTES % (AUTO) 8.6 %; NEUTROPHILS # (AUTO) 7.5 10^3/uL (1.5-6.6); NEUTROPHILS % (AUTO) 87.2 %; PLT - PLATELET COUNT 336 10^3/uL (130-450); RED BLOOD COUNT 2.93 10^6/uL (4.20-5.40); RED CELL DISTRIBUTION WIDTH 12.1 % (12.0-15.0); WHITE BLOOD COUNT 8.6 x10^3/uL (4.8-10.8)
[2018-05-05 05:01] LABS: ALBUMIN 2.7 g/dL (3.2-5.5); ALBUMIN/GLOBULIN RATIO 1.2 (1.0-2.2); BILIRUBIN,TOTAL 0.7 mg/dL (0.2-1.0); CALCIUM 7.8 mg/dL (8.5-10.3); CREATININE 0.5 mg/dL (0.4-1.0); MAGNESIUM 1.9 mg/dL (1.7-2.8); PHOSPHORUS 2.6 mg/dL (2.5-4.6)
[2018-05-05 05:14] LABS: ABG HCO3 33.2 mmol/L (22.0-26.0); ABG PCO2 43 mmHg (34-45); ABG PH 7.51 (7.35-7.45); ABG PO2 73 mmHg (80-100)
[2018-05-05 05:15] LABS: ABG BASE EXCESS 9.3 mmol/L (-2.0-3.0); ABG OXYGEN SATURATION 95 % (94-98); ABG TCO2 34.5 MMOL/L (21.0-29.0); ALLEN TEST POSITIVE
[2018-05-05] MEDS: ACETAMINOPHEN 1,000 MG/100 ML 100 ML IV PRN ×3 (05:28→19:57)
[2018-05-05] MEDS: METOPROLOL 5 MG/5 ML VIAL IVP SCH ×3 (05:29→21:45)
[2018-05-05] MEDS: methylPREDNISolone SUCCINATE 40 MG/ML VIAL IVP SCH ×3 (05:29→21:45)
[2018-05-05] MEDS: POTASSIUM CHLOR 10 MEQ/100 ML 10 MEQ/100 ML BAG IV SCH ×4 (06:43→10:40)
[2018-05-05 08:10] LABS: VANCOMYCIN,TROUGH 16.2 ug/mL (10.0-20.0)
[2018-05-05] MEDS: VANCOMYCIN INJ 1 GM in SODIUM CHLORIDE 0.9% 250 ML IV SCH ×2 (08:43→19:47)
[2018-05-05] MEDS: ENOXAPARIN 60 MG/0.6 ML SYRINGE SUBQ SCH ×2 (08:45→21:07)
[2018-05-05] MEDS: CHLORHEXIDINE GLUCONATE 15 ML UDC PO SCH ×2 (09:01→21:01)
[2018-05-05] MEDS: PANTOPRAZOLE 40 MG VIAL IVP SCH ×2 (10:16→21:01)
--- NOTE | 2018-05-05 10:37 | XRAY Report ---
Reason: CHF vs atypical pneumonia Procedure Date: 05/05/2018 Accession Number: [id number] / [id number] Procedure: XR - Chest 1 View X-Ray CPT Code: 01101 FULL RESULT: EXAM: CHEST RADIOGRAPHY EXAM DATE: 05/05/2018 08:34 AM. CLINICAL HISTORY: Congestive heart failure versus atypical pneumonia. COMPARISON: CHEST 1 VIEW 05/04/2018 8:39 AM. TECHNIQUE: 1 view. FINDINGS IMPRESSION: 1. Status post intubation and NG tube placement, unremarkable. No pneumothorax. 2. Bilateral minimal to small pleural effusion, left basilar opacity demonstrates no significant interval changes. No new pulmonary opacity or cardiomegaly. RADIA
[2018-05-05] MEDS: CEFEPIME 2 GM in SODIUM CHLORIDE 0.9% MINIBAG 100 ML IV SCH ×2 (12:11→22:38)
[2018-05-05] MEDS: LEVALBUTEROL 1.25 MG/3 ML NEB INH PRN (12:45)
[2018-05-05] MEDS: IPRATROPIUM 0.2 MG/ML NEB INH PRN (12:45)
[2018-05-05] MEDS: LORazepam 2 MG/ML VIAL IVP PRN ×3 (12:48→21:23)
[2018-05-05] MEDS: SODIUM CHLORIDE FLUSH 0.9% 10 ML SYRINGE IVP PRN ×3 (13:06→21:47)
[2018-05-05] MEDS ORDERED: FLUMAZENIL 0.1 MG/1 ML 5 ML MDV IVP ONE ×2 (13:51→13:58)
--- NOTE | 2018-05-05 15:22 | PROVIDER PROGRESS NOTE ---
Assessment/Plan - Problem List (1) Respiratory failure Qualifiers: Chronicity: acute Respiratory failure complication: unspecified whether with hypoxia or hypercapnia Qualified Code(s): J96.00 - Acute respiratory failure, unspecified whether with hypoxia or hypercapnia Assessment/Plan: Pt was extubated today. Continue ICU, telemetry, nebs, steroids, iv antibiotics. Will start a diet and advance as tolerated. Possibly out of ICU to a [facility] bed tomorrow and start PT. (2) Metabolic alkalosis Assessment/Plan: Pt continues to show contraction alkalosis. Continue iv hydration. Monitor BMP daily. (3) Atypical pneumonia Assessment/Plan: Continue iv antibiotics. Follow CXR. (4) Paroxysmal atrial fibrillation Assessment/Plan: HR has been controlled with iv meds. Will transition to po meds when she tolerates a diet. Lovenox will then be transitioned to Eliquis. (5) Status post hip surgery Assessment/Plan: Patient will still need a course of PT at a SNF, once she is [facility], for the recent hip surgery after a fracture suffered from a fall at home last week. The family has voiced that they do not want her to go to [facility]. - Current Meds Current Meds: Current Medications Generic Name Dose Route Start Last Admin Trade Name Freq PRN Reason Stop Dose Admin Chlorhexidine Gluconate 15 ml 05/04/18 13:00 05/05/18 09:01 Peridex PO 15 ml BID MANUEL Administration Enoxaparin Sodium 60 mg 05/03/18 21:00 05/05/18 08:45 Lovenox SUBQ 60 mg BID MANUEL Administration Acetaminophen 100 mls @ 400 mls/hr 05/03/18 15:34 05/05/18 12:25 Ofirmev IV Infused Q6HR PRN Infusion Pain or Fever > 38C (100.4F) Sodium Chloride 500 mls @ 0 mls/hr 05/03/18 18:04 05/04/18 09:21 Normal Saline 0.9% IV Infused Q24H PRN Infusion TKO RATE TKO Vancomycin HCl 1 gm/ Sodium 250 mls @ 167 mls/hr 05/03/18 20:00 05/05/18 10:15 Chloride IV Infused Q12H MANUEL Infusion Dextrose/Sodium Chloride 1,000 mls @ 125 mls/hr 05/04/18 09:00 05/05/18 14:30 D5ns IV 125 mls/hr .Q8H MANUEL Administration Cefepime HCl 2 gm/ Sodium 100 mls @ 200 mls/hr 05/04/18 11:00 05/05/18 12:45 Chloride IV Infused 1100,2300 MANUEL Infusion Propofol 100 mls @ 3.72 mls/hr 05/04/18 13:00 05/05/18 13:39 Diprivan IV 0 mcg/kg/min .[id number] MANUEL 0 mls/hr Titration Protocol 10 MCG/KG/MIN Ipratropium [place] 0.5 mg 05/03/18 13:48 05/05/18 12:45 Atrovent INH 0.5 mg RTQ4H PRN Administration Shortness of Air/Wheezing Levalbuterol HCl 1.25 mg 05/03/18 13:48 05/05/18 12:45 Xopenex INH 1.25 mg Q4H PRN Administration Shortness of Air/Wheezing Lorazepam 1 mg 05/05/18 02:28 05/05/18 13:06 Ativan Inj (Vial) IVP 0.25 mg Q1H PRN Administration Moderate Anxiety Methylprednisolone 40 mg 05/03/18 22:00 05/05/18 13:36 Solu-Medrol (40mg Vial) IVP 40 mg TID MANUEL Administration Metoprolol Tartrate 5 mg 05/03/18 14:00 05/05/18 13:37 Lopressor Inj IVP 5 mg Q8HR MANUEL Administration Midazolam HCl 2 mg 05/03/18 16:16 05/05/18 02:26 Versed IVP 2 mg Q1H PRN Administration Anxiety Pantoprazole Sodium 40 mg 05/03/18 14:00 05/05/18 10:16 Protonix IVP 40 mg BID MANUEL Administration Sodium Chloride 10 ml 05/03/18 17:00 05/05/18 09:02 Normal Saline Flush 0.9% IVP 10 ml 0100,0900,1700 MANUEL Administration Sodium Chloride 10 ml 05/03/18 13:00 05/05/18 13:06 Normal Saline Flush 0.9% IVP 10 ml PRN PRN Administration NEEDED PER PROVIDER ORDERS - Lab Result Fish Bone Diagrams: 05/06/18 04:15 05/06/18 04:15 - Additional Planning My Orders: My Active Orders 05/04/18 19:17 Restraints [RC] Q24H 05/05/18 09:00 Miscellaenous Nursing Order [RC] ONCE 05/05/18 13:59 Acapella (Flutter Valve Device [RC] TID 05/06/18 05:00 ABG - ARTERIAL BLOOD GAS [BG] DAILYLAB CBC - COMP BLD CT W/AUTO DIFF [HEME] DAILYLAB COMPREHENSIVE METABOLIC PANEL [CHEM] DAILYLAB 05/06/18 07:30 VANCOMYCIN TROUGH [CHEM] Timed 05/06/18 09:00 Chest 1 View X-Ray [XR] DAILY 05/07/18 05:00 CBC - COMP BLD CT W/AUTO DIFF [HEME] DAILYLAB COMPREHENSIVE METABOLIC PANEL [CHEM] DAILYLAB Subjective - Subjective Nursing Reports: Other (She was extubated this afternoon. She immediately said she needs to have a BM.) Objective Vital Signs: Vital Signs - 24 hr 05/04/18 05/04/18 05/04/18 16:00 16:20 17:00 Temperature 36.5 C Heart Rate 86 Heart Rate [ 88 87 Monitoring electrodes] Respiratory 23 25 H 16 Rate Blood Pressure Blood Pressure 129/69 123/64 [Right Brachial artery] O2 Saturation 100 95 05/04/18 05/04/18 05/04/18 18:00 18:21 19:00 Temperature Heart Rate 89 Heart Rate [ 85 81 Monitoring electrodes] Respiratory 14 14 Rate Blood Pressure Blood Pressure 89/53 L 118/63 [Right Brachial artery] O2 Saturation 95 97 05/04/18 05/04/18 05/04/18 20:00 21:00 21:40 Temperature 37.0 C Heart Rate 88 Heart Rate [ 84 76 Monitoring electrodes] Respiratory 14 14 16 Rate Blood Pressure Blood Pressure 88/54 L 94/54 L [Right Brachial artery] O2 Saturation 95 94 05/04/18 05/04/18 05/04/18 21:45 22:00 23:00 Temperature Heart Rate Heart Rate [ 75 78 Monitoring electrodes] Respiratory 14 14 Rate Blood Pressure 94/54 L Blood Pressure 124/68 86/50 L [Right Brachial artery] O2 Saturation 100 100 05/04/18 05/04/18 05/05/18 23:16 23:57 00:00 Temperature 36.3 C L Heart Rate 92 Heart Rate [ 92 96 Monitoring electrodes] Respiratory 16 14 Rate Blood Pressure Blood Pressure 132/69 H 114/57 L [Right Brachial artery] O2 Saturation 98 100 05/05/18 05/05/18 05/05/18 01:00 02:00 02:30 Temperature Heart Rate 94 Heart Rate [ 93 98 Monitoring electrodes] Respiratory 20 16 Rate Blood Pressure Blood Pressure 106/60 133/80 H [Right Brachial artery] O2 Saturation 98 99 05/05/18 05/05/18 05/05/18 03:00 04:00 05:00 Temperature 36.7 C Heart Rate Heart Rate [ 75 72 70 Monitoring electrodes] Respiratory 14 14 14 Rate Blood Pressure Blood Pressure 105/63 112/58 L 113/60 [Right Brachial artery] O2 Saturation 99 98 98 05/05/18 05/05/18 05/05/18 05:29 05:42 06:00 Temperature Heart Rate 61 Heart Rate [ 62 Monitoring electrodes] Respiratory 14 Rate Blood Pressure 113/60 Blood Pressure 114/65 [Right Brachial artery] O2 Saturation 100 05/05/18 05/05/18 05/05/18 07:00 07:31 08:00 Temperature 36.5 C Heart Rate 76 Heart Rate [ 66 65 Monitoring electrodes] Respiratory 12 18 Rate Blood Pressure Blood Pressure 110/61 153/74 H [Right Brachial artery] O2 Saturation 99 99 05/05/18 05/05/18 05/05/18 09:00 09:45 10:00 Temperature Heart Rate 62 Heart Rate [ 67 63 Monitoring electrodes] Respiratory 24 13 Rate Blood Pressure Blood Pressure 134/69 H 135/81 H [Right Brachial artery] O2 Saturation 100 100 05/05/18 05/05/18 05/05/18 11:00 11:10 12:00 Temperature 36.6 C Heart Rate 75 Heart Rate [ 67 81 Monitoring electrodes] Respiratory 12 18 Rate Blood Pressure Blood Pressure 158/76 H 162/84 H [Right Brachial artery] O2 Saturation 99 98 05/05/18 05/05/18 05/05/18 12:47 12:51 13:00 Temperature Heart Rate 89 39 L Heart Rate [ 97 Monitoring electrodes] Respiratory 34 H 24 Rate Blood Pressure Blood Pressure 142/71 H [Right Brachial artery] O2 Saturation 95 05/05/18 05/05/18 05/05/18 13:37 14:00 15:00 Temperature Heart Rate Heart Rate [ 88 91 Monitoring electrodes] Respiratory 23 21 Rate Blood Pressure 142/71 H Blood Pressure 142/71 H 153/77 H [Right Brachial artery] O2 Saturation 97 96 Oxygen O2 Source Cool [place] Oxygen Flow Rate 5 I&O (Last 24 Hrs): Intake and Output Totals x24h 05/03/18 05/04/18 05/05/18 23:59 23:59 23:59 Intake Total 608.329 0410.065 3117.142 Output Total 3030 2314 825 Balance -2384.432 498.156 2148.142 General: Alert Neck: Supple Neuro: Non Focal Cardiovascular: Regular rate, Other (2/6 syst murmur) Respiratory: Breath sounds nml Abdomen: Soft Extremities: No edema - Results Results: Laboratory Results WBC 8.6 x10^3/uL (4.8-10.8) 05/05/18 04:15 RBC 2.93 10^6/uL (4.20-5.40) L 05/05/18 04:15 Hgb 9.8 g/dL (12.0-16.0) L 05/05/18 04:15 Hct 29.7 % (37.0-47.0) L 05/05/18 04:15 MCV 101.1 fL (81.0-99.0) H 05/05/18 04:15 MCH 33.3 pg (27.0-31.0) H 05/05/18 04:15 MCHC 32.9 g/dL (32.0-36.0) 05/05/18 04:15 RDW 12.1 % (12.0-15.0) 05/05/18 04:15 Plt Count 336 10^3/uL (130-450) 05/05/18 04:15 MPV 7.0 fL (7.9-10.8) L 05/05/18 04:15 Neut # (Auto) 7.5 10^3/uL (1.5-6.6) H 05/05/18 04:15 Lymph # (Auto) 0.4 10^3/uL (1.5-3.5) L 05/05/18 04:15 [place] # (Auto) 0.7 10^3/uL (0.0-1.0) 05/05/18 04:15 Eos # (Auto) 0.0 10^3/uL (0.0-0.7) 05/05/18 04:15 Baso # (Auto) 0.0 10^3/uL (0.0-0.1) 05/05/18 04:15 Absolute Nucleated RBC 0.01 x10^3/uL 05/05/18 04:15 Nucleated RBC % 0.1 /100WBC 05/05/18 04:15 Manual Slide Review Indicated 05/03/18 11:18 WBC Morphology NORMAL APPEARANCE (NORMAL) 05/03/18 11:18 Platelet Estimate NORMAL (130-450,000) (NORMAL) 05/03/18 11:18 Platelet Morphology NORMAL APPEARANCE (NORMAL) 05/03/18 11:18 RBC Morph Micro Appear NORMAL APPEARANCE (NORMAL) 05/03/18 11:18 Bld Gas Analysis Time 0509 05/05/18 05:10 Sample Site RIGHT RADIAL 05/05/18 05:10 ABG pH 7.51 (7.35-7.45) H 05/05/18 05:10 ABG pCO2 43 mmHg (34-45) 05/05/18 05:10 ABG pO2 73 mmHg (80-100) L 05/05/18 05:10 ABG HCO3 33.2 mmol/L (22.0-26.0) H 05/05/18 05:10 ABG Total CO2 34.5 MMOL/L (21.0-29.0) H 05/05/18 05:10 ABG O2 Saturation 95 % (94-98) 05/05/18 05:10 ABG Base Excess 9.3 mmol/L (-2.0-3.0) H 05/05/18 05:10 Loki Test POSITIVE 05/05/18 05:10 Respiration Rate 14 b/min 05/05/18 05:10 O2 Delivery Device VENTILATOR 05/05/18 05:10 O2 Liters/Min 35.00 LPM 05/05/18 05:10 Vent Mode SYNCHRONOUS/TIMES 05/05/18 05:10 FiO2 99.00 05/05/18 05:10 Tidal Volume 425 mL 05/05/18 05:10 PEEP 5 cmH2O 05/05/18 05:10 Pressure Support Vent 7 cmH2O 05/05/18 05:10 Sodium 138 mmol/L (135-145) 05/05/18 04:15 Potassium 3.2 mmol/L (3.5-5.0) L 05/05/18 04:15 Chloride 98 mmol/L (101-111) L 05/05/18 04:15 Carbon Dioxide 34 mmol/L (21-32) H 05/05/18 04:15 Anion Gap 6.0 (6-13) 05/05/18 04:15 BUN 33 mg/dL (6-20) H 05/05/18 04:15 Creatinine 0.5 mg/dL (0.4-1.0) 05/05/18 04:15 Estimated GFR (MDRD) 119 (>89) 05/05/18 04:15 Glucose 204 mg/dL (70-100) H 05/05/18 04:15 Lactic Acid 1.2 mmol/L (0.5-2.2) 05/03/18 11:18 Calcium 7.8 mg/dL (8.5-10.3) L 05/05/18 04:15 Phosphorus 2.6 mg/dL (2.5-4.6) 05/05/18 04:15 Magnesium 1.9 mg/dL (1.7-2.8) 05/05/18 04:15 Total Bilirubin 0.7 mg/dL (0.2-1.0) 05/05/18 04:15 AST 26 IU/L (10-42) 05/05/18 04:15 ALT 60 IU/L (10-60) 05/05/18 04:15 Alkaline Phosphatase 65 IU/L (42-121) 05/05/18 04:15 Troponin I < 0.04 ng/mL (<0.49) 05/04/18 04:25 B-Natriuretic Peptide 538 pg/mL (5-100) H 05/04/18 04:25 Total Protein 5.0 g/dL (6.7-8.2) L 05/05/18 04:15 Albumin 2.7 g/dL (3.2-5.5) L 05/05/18 04:15 Globulin 2.3 g/dL (2.1-4.2) 05/05/18 04:15 Albumin/Globulin Ratio 1.2 (1.0-2.2) 05/05/18 04:15 Urine Color YELLOW 05/03/18 15:30 Urine Clarity CLOUDY (CLEAR) 05/03/18 15:30 Urine pH 5.5 PH (5.0-7.5) 05/03/18 15:30 Ur Specific [place] 1.025 (1.002-1.030) 05/03/18 15:30 Urine Protein 30 mg/dL (NEGATIVE) H 05/03/18 15:30 Urine Glucose (UA) NEGATIVE mg/dL (NEGATIVE) 05/03/18 15:30 Urine Ketones NEGATIVE mg/dL (NEGATIVE) 05/03/18 15:30 Urine Occult Blood LARGE (NEGATIVE) H 05/03/18 15:30 Urine Nitrite NEGATIVE (NEGATIVE) 05/03/18 15:30 Urine Bilirubin NEGATIVE (NEGATIVE) 05/03/18 15:30 Urine Urobilinogen 0.2 (NORMAL) E.U./dL (NORMAL) 05/03/18 15:30 Ur Leukocyte Esterase SMALL (NEGATIVE) H 05/03/18 15:30 Urine RBC TNTC /HPF (0-5) H 05/03/18 15:30 Urine WBC 6-10 /HPF (0-5) H 05/03/18 15:30 Ur Squamous Epith Cells NONE SEEN (<= Few) 05/03/18 15:30 Amorphous Sediment Marked /LPF 05/03/18 15:30 Urine Bacteria None Seen /HPF (None Seen) 05/03/18 15:30 Urine Culture Comments INDICATED 05/03/18 15:30 Last Dose Date 05/04/18 05/05/18 07:48 Last Dose Time 214405/05/18 07:48 Vancomycin Trough 16.2 ug/mL (10.0-20.0) 05/05/18 07:48
[2018-05-05] MEDS ORDERED: BENZOCAINE/MENTHOL LOZENGE MM PRN (19:31)
[2018-05-06] MEDS: LEVALBUTEROL 1.25 MG/3 ML NEB INH PRN ×2 (03:09→10:38)
[2018-05-06] MEDS: IPRATROPIUM 0.2 MG/ML NEB INH PRN (03:09)
[2018-05-06] MEDS ORDERED: METOPROLOL 5 MG/5 ML VIAL IVP PRN (03:36)
[2018-05-06] MEDS: SODIUM CHLORIDE FLUSH 0.9% 10 ML SYRINGE IVP PRN ×3 (03:38→05:50)
[2018-05-06] MEDS ORDERED: ZOLPIDEM 5 MG TABLET PO PRN (03:38)
[2018-05-06] MEDS: LORazepam 2 MG/ML VIAL IVP PRN ×3 (03:38→14:26)
[2018-05-06] MEDS ORDERED: guaiFENesin/DEXTROMETHORPHAN 10 ML UDC PO PRN (03:56)
[2018-05-06 04:54] LABS: BASOPHILS % (AUTO) 0.3 %; HGB - HEMOGLOBIN 10.8 g/dL (12.0-16.0); LYMPHOCYTES # (AUTO) 0.3 10^3/uL (1.5-3.5); LYMPHOCYTES % (AUTO) 2.2 %; MEAN CORPUSCULAR HEMOGLOBIN 33.6 pg (27.0-31.0); MEAN CORPUSCULAR HGB CONC 32.6 g/dL (32.0-36.0); MEAN CORPUSCULAR VOLUME 103.1 fL (81.0-99.0); MEAN PLATELET VOLUME 6.8 fL (7.9-10.8); MONOCYTES # (AUTO) 0.6 10^3/uL (0.0-1.0); MONOCYTES % (AUTO) 4.2 %; NEUTROPHILS # (AUTO) 12.7 10^3/uL (1.5-6.6); NEUTROPHILS % (AUTO) 93.3 %; PLT - PLATELET COUNT 388 10^3/uL (130-450); RED BLOOD COUNT 3.21 10^6/uL (4.20-5.40); RED CELL DISTRIBUTION WIDTH 12.4 % (12.0-15.0); WHITE BLOOD COUNT 13.6 x10^3/uL (4.8-10.8)
[2018-05-06 05:03] LABS: ALBUMIN 3.1 g/dL (3.2-5.5); ALBUMIN/GLOBULIN RATIO 1.2 (1.0-2.2); BILIRUBIN,TOTAL 0.5 mg/dL (0.2-1.0); CALCIUM 7.9 mg/dL (8.5-10.3); CREATININE 0.4 mg/dL (0.4-1.0); TOTAL PROTEIN 5.7 g/dL (6.7-8.2)
[2018-05-06] MEDS: methylPREDNISolone SUCCINATE 40 MG/ML VIAL IVP SCH (05:50)
[2018-05-06] MEDS: METOPROLOL 5 MG/5 ML VIAL IVP SCH (05:51)
[2018-05-06] MEDS: DEXTROSE 5%-0.9% NACL 1,000 ML IV SCH (06:52)
[2018-05-06 08:00] LABS: VANCOMYCIN,TROUGH 17.5 ug/mL (10.0-20.0)
[2018-05-06] MEDS ORDERED: MAGNESIUM HYDROXIDE 2,400 MG/30 ML UDC PO PRN (08:01)
[2018-05-06] MEDS ORDERED: SENNA 8.6 MG TABLET PO PRN (08:01)
[2018-05-06] MEDS ORDERED: BISACODYL 10 MG SUPP PR PRN (08:01)
[2018-05-06] MEDS ORDERED: oxyCODONE 5 MG TABLET PO PRN (08:29)
[2018-05-06] MEDS: VANCOMYCIN INJ 1 GM in SODIUM CHLORIDE 0.9% 250 ML IV SCH ×2 (08:48→21:06)
[2018-05-06] MEDS: CHLORHEXIDINE GLUCONATE 15 ML UDC PO SCH ×2 (08:50→21:02)
[2018-05-06] MEDS: APIXABAN 2.5 MG TABLET PO SCH ×2 (08:50→21:01)
[2018-05-06] MEDS: METOPROLOL SUCCINATE 50 MG TABLET PO SCH ×2 (08:50→21:02)
[2018-05-06] MEDS: SODIUM CHLORIDE FLUSH 0.9% 10 ML SYRINGE IVP SCH ×3 (08:51→21:46)
[2018-05-06] MEDS ORDERED: DIGOXIN 125 MCG TABLET PO SCH (09:00)
[2018-05-06] MEDS ORDERED: FUROSEMIDE 40 MG/4 ML VIAL IVP ONE (10:32)
--- NOTE | 2018-05-06 10:34 | XRAY Report ---
Reason: CHF vs atypical pneumonia Procedure Date: 05/06/2018 Accession Number: [id number] / [id number] Procedure: XR - Chest 1 View X-Ray CPT Code: 76309 FULL RESULT: EXAM: CHEST RADIOGRAPHY EXAM DATE: 05/06/2018 09:56 AM. CLINICAL HISTORY: Congestive heart failure versus atypical pneumonia. COMPARISON: CHEST 1 VIEW 05/05/2018 8:21 AM. TECHNIQUE: 1 view. FINDINGS: Lungs/Pleura: Interval increase in bilateral pleural effusions, small to moderate. Aerated lungs appear similar to before with coarse interstitial markings. Mediastinum: The cardiomediastinal silhouette is stable with aortic arch calcifications. Other: Interval extubation and removal of the enteric tube. IMPRESSION: Interval extubation with increase in pleural effusions, possibly pulmonary response to withdrawal of positive pressure ventilation. RADIA
[2018-05-06] MEDS: CEFEPIME 2 GM in SODIUM CHLORIDE 0.9% MINIBAG 100 ML IV SCH ×2 (10:58→22:49)
[2018-05-06] MEDS ORDERED: methylPREDNISolone SUCCINATE 40 MG/ML VIAL IVP ONE (11:00)
[2018-05-06] MEDS ORDERED: MULTIVITAMIN W/MINERALS TABLET PO SCH (11:00)
[2018-05-06] MEDS: MORPHINE 2 MG/ML CARPUJECT IVP PRN ×5 (11:15→19:38)
[2018-05-06 11:17] LABS: ABG HCO3 32.7 mmol/L (22.0-26.0); ABG PH 7.27 (7.35-7.45); ABG PO2 70 mmHg (80-100); ABG TCO2 34.9 MMOL/L (21.0-29.0)
[2018-05-06 11:18] LABS: ABG BASE EXCESS 3.8 mmol/L (-2.0-3.0); ABG OXYGEN SATURATION 94 % (94-98); ALLEN TEST POSITIVE
[2018-05-06 11:22] LABS: ABG PCO2 72 mmHg (34-45)
[2018-05-06] MEDS: LEVALBUTEROL 1.25 MG/3 ML NEB INH SCH ×4 (11:49→23:35)
[2018-05-06 12:34] LABS: ABG BASE EXCESS 7.2 mmol/L (-2.0-3.0); ABG HCO3 34.5 mmol/L (22.0-26.0); ABG PH 7.37 (7.35-7.45); ABG PO2 64 mmHg (80-100); ABG TCO2 36.4 MMOL/L (21.0-29.0)
[2018-05-06 12:35] LABS: ABG OXYGEN SATURATION 93 % (94-98); ALLEN TEST POSITIVE
[2018-05-06 12:38] LABS: ABG PCO2 62 mmHg (34-45)
--- NOTE | 2018-05-06 15:09 | PROVIDER PROGRESS NOTE ---
Assessment/Plan - Problem List (1) Respiratory failure Qualifiers: Chronicity: acute Assessment/Plan: She again worsened today with desats, RR 30+, then ABG showed acidosis and hypercarbia. CXR shows larger pleural effusions today. BNP >1000, compared to 300's yesterday. Patient placed on BIPAP with gentle sedation for her anxiety over needing the BIPAP mask on her face. She got a dose of Lasix iv and her iv fluids stopped. PO meds were started today, she is taking sips of liquids when the BIPAP mask is taken off for a break. Solumedrol dose increased from 40 tid to 125 tid. Xopenex is now scheduled, not prn. Mucinex will be started. Continue aggressive ICU respiratory management. (2) Pleural effusion Assessment/Plan: Diurese, as above. Monitor VCXR, BNP. (3) COPD exacerbation Assessment/Plan: Nebulized Xopenex, steroids, BIPAP as above. I spoke to about her apparently severe COPD and potential need for re- intubation and he does want eveything done. (4) Atypical pneumonia Assessment/Plan: Continue empiric iv antibiotics. Monitor CXR daily. (5) Paroxysmal atrial fibrillation Assessment/Plan: Continue B-garima plus Dig for HR control. Transition back to Eliquis for anticoagulation. (6) Status post hip surgery Assessment/Plan: She will need PT after DCh. - Current Meds Current Meds: Current Medications Generic Name Dose Route Start Last Admin Trade Name Freq PRN Reason Stop Dose Admin Apixaban 2.5 mg 05/06/18 09:00 05/06/18 08:50 Eliquis PO 2.5 mg BID MANUEL Administration Chlorhexidine Gluconate 15 ml 05/04/18 13:00 05/06/18 08:50 Peridex PO 15 ml BID MANUEL Administration Digoxin 125 mcg 05/06/18 09:00 05/06/18 08:50 Lanoxin PO 125 mcg DAILY MANUEL Administration Sodium Chloride 500 mls @ 0 mls/hr 05/03/18 18:04 05/04/18 09:21 Normal Saline 0.9% IV Infused Q24H PRN Infusion TKO RATE TKO Vancomycin HCl 1 gm/ Sodium 250 mls @ 167 mls/hr 05/03/18 20:00 05/06/18 10:20 Chloride IV Infused Q12H MANUEL Infusion Cefepime HCl 2 gm/ Sodium 100 mls @ 200 mls/hr 05/04/18 11:00 05/06/18 11:30 Chloride IV Infused 1100,2300 MANUEL Infusion Levalbuterol HCl 1.25 mg 05/06/18 11:00 05/06/18 11:49 Xopenex INH Not Given Q4H MANUEL Lorazepam 1 mg 05/05/18 02:28 05/06/18 14:26 Ativan Inj (Vial) IVP 1 mg Q1H PRN Administration Moderate Anxiety Metoprolol Succinate 100 mg 05/06/18 09:00 05/06/18 08:50 Toprol Xl PO 100 mg BID MANUEL Administration Metoprolol Tartrate 5 mg 05/06/18 03:36 05/06/18 03:48 Lopressor Inj IVP 5 mg Q6H PRN Administration For SBP>170 or HR>120 Morphine Sulfate 2 mg 05/06/18 10:07 05/06/18 13:19 Morphine (Carpuject) IVP 2 mg Q2HR PRN Administration Dyspnea Multivitamins/Minerals 1 tab 05/06/18 11:00 05/06/18 11:28 Theragran M PO Not Given DAILYWM MANUEL Sodium Chloride 10 ml 05/03/18 17:00 05/06/18 08:51 Normal Saline Flush 0.9% IVP 10 ml 0100,0900,1700 MANUEL Administration Sodium Chloride 10 ml 05/03/18 13:00 05/06/18 05:50 Normal Saline Flush 0.9% IVP 10 ml PRN PRN Administration NEEDED PER PROVIDER ORDERS Throat Lozenges 1 lozenge 05/05/18 19:31 05/05/18 20:02 Cepacol MM 1 lozenge Q2HR PRN Administration Throat pain - Lab Result Fish Bone Diagrams: 05/06/18 04:15 05/06/18 04:15 - Additional Planning My Orders: My Active Orders 05/05/18 16:35 O2 [Oxygen Therapy] [RC] .PRN 05/05/18 19:31 Benzocaine/Menthol [Cepacol] 1 lozenge MM Q2HR PRN 05/06/18 08:01 Bisacodyl Supp [Dulcolax Supp] 10 mg UT PRN PRN Senna [Senokot] 8.6 mg PO PRN PRN 05/06/18 08:29 oxyCODONE [Roxicodone] 5 mg PO Q4H PRN 05/06/18 09:00 Apixaban [Eliquis] 2.5 mg PO BID Digoxin [Lanoxin] 125 mcg PO DAILY Metoprolol Succinate [Toprol Xl] 100 mg PO BID 05/06/18 10:07 Morphine Inj (Carpuject) [Morphine (Carpuject)] 2 mg IVP Q2HR PRN 05/06/18 11:00 Levalbuterol [Xopenex] 1.25 mg INH Q4H Multivitamin W/Minerals [Theragran M] 1 tab PO DAILYWM 05/06/18 11:30 RT [BIPAP/CPAP - RT] [RC] .Q2H 05/06/18 22:00 methylPREDNISolone SUCCINATE [SOLU-Medrol (125MG VIAL)] 125 mg IVP TID 05/06/18 Breakfast DIET [Dysphagia Puree Diet] [DIET] 05/07/18 05:00 BNP - B-NATRIURETIC PEPTIDE [IAI] DAILYLAB CBC - COMP BLD CT W/AUTO DIFF [HEME] DAILYLAB COMPREHENSIVE METABOLIC PANEL [CHEM] DAILYLAB 05/07/18 09:00 Chest 1 View X-Ray [XR] DAILY 05/08/18 05:00 BNP - B-NATRIURETIC PEPTIDE [IAI] DAILYLAB 05/08/18 09:00 Chest 1 View X-Ray [XR] DAILY Subjective - Subjective Patient Reports: Shortness of Breath, Other Objective Vital Signs: Vital Signs - 24 hr 05/05/18 05/05/18 05/05/18 16:00 17:00 18:00 Temperature 37.2 C Heart Rate Heart Rate [ 92 97 95 Monitoring electrodes] Respiratory 20 20 24 Rate Blood Pressure Blood Pressure 148/68 H 153/82 H 159/85 H [Right Brachial artery] O2 Saturation 98 100 100 05/05/18 05/05/18 05/05/18 19:00 20:00 21:00 Temperature 36.5 C Heart Rate Heart Rate [ 119 H 111 H 107 H Monitoring electrodes] Respiratory 22 24 24 Rate Blood Pressure Blood Pressure 144/66 H 159/79 H 163/74 H [Right Brachial artery] O2 Saturation 100 96 100 05/05/18 05/05/18 05/05/18 21:45 22:00 23:00 Temperature Heart Rate Heart Rate [ 97 100 Monitoring electrodes] Respiratory 26 H 27 H Rate Blood Pressure 163/74 H Blood Pressure 146/80 H 164/101 H [Right Brachial artery] O2 Saturation 97 96 05/06/18 05/06/18 05/06/18 00:00 01:00 02:00 Temperature 36.5 C Heart Rate Heart Rate [ 103 H 107 H 113 H Monitoring electrodes] Respiratory 29 H 27 H 26 H Rate Blood Pressure Blood Pressure 161/90 H 159/90 H 161/66 H [Right Brachial artery] O2 Saturation 98 99 99 05/06/18 05/06/18 05/06/18 03:00 03:09 03:45 Temperature Heart Rate 118 H Heart Rate [ 120 H 114 H Monitoring electrodes] Respiratory 28 H 35 H 30 H Rate Blood Pressure Blood Pressure 185/89 H 154/69 H [Right Brachial artery] O2 Saturation 99 95 05/06/18 05/06/18 05/06/18 03:48 03:50 03:57 Temperature Heart Rate Heart Rate [ 114 H 113 H 90 Monitoring electrodes] Respiratory 30 H 29 H 25 H Rate Blood Pressure 187/94 H Blood Pressure 152/64 H 156/86 H 140/81 H [Right Brachial artery] O2 Saturation 98 96 95 05/06/18 05/06/18 05/06/18 04:00 04:15 04:18 Temperature 36.5 C Heart Rate Heart Rate [ 90 96 Monitoring electrodes] Respiratory 27 H 31 H Rate Blood Pressure 148/91 H Blood Pressure 143/79 H 148/91 H [Right Brachial artery] O2 Saturation 98 100 05/06/18 05/06/18 05/06/18 04:30 04:45 05:00 Temperature Heart Rate Heart Rate [ 95 98 97 Monitoring electrodes] Respiratory 27 H 26 H 23 Rate Blood Pressure Blood Pressure 160/77 H 159/88 H 163/83 H [Right Brachial artery] O2 Saturation 100 100 100 05/06/18 05/06/18 05/06/18 05:51 06:00 07:05 Temperature Heart Rate Heart Rate [ 88 102 H Monitoring electrodes] Respiratory 29 H 26 H Rate Blood Pressure 175/94 H Blood Pressure 152/81 H 173/93 H [Right Brachial artery] O2 Saturation 100 98 05/06/18 05/06/18 05/06/18 08:00 09:00 10:00 Temperature 37.0 C Heart Rate Heart Rate [ 96 122 H 107 H Monitoring electrodes] Respiratory 22 34 H 30 H Rate Blood Pressure Blood Pressure 187/101 H 182/121 H 160/79 H [Right Brachial artery] O2 Saturation 2 L 94 98 05/06/18 05/06/18 05/06/18 10:38 11:00 11:30 Temperature Heart Rate 100 90 Heart Rate [ 100 Monitoring electrodes] Respiratory 32 H 28 H Rate Blood Pressure Blood Pressure 133/92 H [Right Brachial artery] O2 Saturation 97 05/06/18 05/06/18 05/06/18 12:00 12:40 13:00 Temperature 36.1 C L Heart Rate 96 Heart Rate [ 99 93 Monitoring electrodes] Respiratory 28 H 28 H Rate Blood Pressure Blood Pressure 164/90 H 167/86 H [Right Brachial artery] O2 Saturation 95 100 05/06/18 05/06/18 14:00 14:43 Temperature Heart Rate 99 Heart Rate [ 96 Monitoring electrodes] Respiratory 30 H Rate Blood Pressure Blood Pressure 169/95 H [Right Brachial artery] O2 Saturation Oxygen O2 Source BIPAP Oxygen Flow Rate 5 I&O (Last 24 Hrs): Intake and Output Totals x24h 05/04/18 05/05/18 05/06/18 23:59 23:59 23:59 Intake Total 2515.065 5233.142 1840 Output Total 2314 1645 3570 Balance 641.537 4446.142 -1730 General: Severe distress, Other (Pt unable to answer due to SOB, follows commands, appears very tired.) HEENT: Mucous membr. moist/pink Neck: Supple Neuro: Other (Fatigued.) Cardiovascular: Regular rate, No murmurs Respiratory: Other (Very tight, poor air mvm) Abdomen: Soft Extremities: No edema - Results Results: Laboratory Results WBC 13.6 x10^3/uL (4.8-10.8) H 05/06/18 04:15 RBC 3.21 10^6/uL (4.20-5.40) L 05/06/18 04:15 Hgb 10.8 g/dL (12.0-16.0) L 05/06/18 04:15 Hct 33.1 % (37.0-47.0) L 05/06/18 04:15 MCV 103.1 fL (81.0-99.0) H 05/06/18 04:15 MCH 33.6 pg (27.0-31.0) H 05/06/18 04:15 MCHC 32.6 g/dL (32.0-36.0) 05/06/18 04:15 RDW 12.4 % (12.0-15.0) 05/06/18 04:15 Plt Count 388 10^3/uL (130-450) 05/06/18 04:15 MPV 6.8 fL (7.9-10.8) L 05/06/18 04:15 Neut # (Auto) 12.7 10^3/uL (1.5-6.6) H 05/06/18 04:15 Lymph # (Auto) 0.3 10^3/uL (1.5-3.5) L 05/06/18 04:15 [place] # (Auto) 0.6 10^3/uL (0.0-1.0) 05/06/18 04:15 Eos # (Auto) 0.0 10^3/uL (0.0-0.7) 05/06/18 04:15 Baso # (Auto) 0.0 10^3/uL (0.0-0.1) 05/06/18 04:15 Absolute Nucleated RBC 0.01 x10^3/uL 05/06/18 04:15 Nucleated RBC % 0.0 /100WBC 05/06/18 04:15 Manual Slide Review Indicated 05/03/18 11:18 WBC Morphology NORMAL APPEARANCE (NORMAL) 05/03/18 11:18 Platelet Estimate NORMAL (130-450,000) (NORMAL) 05/03/18 11:18 Platelet Morphology NORMAL APPEARANCE (NORMAL) 05/03/18 11:18 RBC Morph Micro Appear NORMAL APPEARANCE (NORMAL) 05/03/18 11:18 Bld Gas Analysis Time 1210 05/06/18 12:10 Sample Site RIGHT RADIAL 05/06/18 12:10 ABG pH 7.37 (7.35-7.45) 05/06/18 12:10 ABG pCO2 62 mmHg (34-45) H* 05/06/18 12:10 ABG pO2 64 mmHg (80-100) L 05/06/18 12:10 ABG HCO3 34.5 mmol/L (22.0-26.0) H 05/06/18 12:10 ABG Total CO2 36.4 MMOL/L (21.0-29.0) H 05/06/18 12:10 ABG O2 Saturation 93 % (94-98) L 05/06/18 12:10 ABG Base Excess 7.2 mmol/L (-2.0-3.0) H 05/06/18 12:10 Loki Test POSITIVE 05/06/18 12:10 Respiration Rate 14 b/min 05/05/18 05:10 O2 Delivery Device BiPAP 05/06/18 12:10 O2 Liters/Min 35.00 LPM 05/06/18 11:05 Vent Mode NPBV 05/06/18 12:10 FiO2 30.00 05/06/18 12:10 Tidal Volume 425 mL 05/05/18 05:10 PEEP 5 cmH2O 05/05/18 05:10 Pressure Support Vent 7 cmH2O 05/05/18 05:10 EPAP 5 cmH2O 05/06/18 12:10 IPAP 14 cmH2O 05/06/18 12:10 Sodium 141 mmol/L (135-145) 05/06/18 04:15 Potassium 3.6 mmol/L (3.5-5.0) 05/06/18 04:15 Chloride 103 mmol/L (101-111) 05/06/18 04:15 Carbon Dioxide 33 mmol/L (21-32) H 05/06/18 04:15 Anion Gap 5.0 (6-13) L 05/06/18 04:15 BUN 19 mg/dL (6-20) 05/06/18 04:15 Creatinine 0.4 mg/dL (0.4-1.0) 05/06/18 04:15 Estimated GFR (MDRD) 154 (>89) 05/06/18 04:15 Glucose 157 mg/dL (70-100) H 05/06/18 04:15 Lactic Acid 1.2 mmol/L (0.5-2.2) 05/03/18 11:18 Calcium 7.9 mg/dL (8.5-10.3) L 05/06/18 04:15 Phosphorus 2.6 mg/dL (2.5-4.6) 05/05/18 04:15 Magnesium 1.9 mg/dL (1.7-2.8) 05/05/18 04:15 Total Bilirubin 0.5 mg/dL (0.2-1.0) 05/06/18 04:15 AST 29 IU/L (10-42) 05/06/18 04:15 ALT 54 IU/L (10-60) 05/06/18 04:15 Alkaline Phosphatase 69 IU/L (42-121) 05/06/18 04:15 Troponin I < 0.04 ng/mL (<0.49) 05/04/18 04:25 B-Natriuretic Peptide 1031 pg/mL (5-100) H 05/06/18 07:35 Total Protein 5.7 g/dL (6.7-8.2) L 05/06/18 04:15 Albumin 3.1 g/dL (3.2-5.5) L 05/06/18 04:15 Globulin 2.6 g/dL (2.1-4.2) 05/06/18 04:15 Albumin/Globulin Ratio 1.2 (1.0-2.2) 05/06/18 04:15 Urine Color YELLOW 05/03/18 15:30 Urine Clarity CLOUDY (CLEAR) 05/03/18 15:30 Urine pH 5.5 PH (5.0-7.5) 05/03/18 15:30 Ur Specific [place] 1.025 (1.002-1.030) 05/03/18 15:30 Urine Protein 30 mg/dL (NEGATIVE) H 05/03/18 15:30 Urine Glucose (UA) NEGATIVE mg/dL (NEGATIVE) 05/03/18 15:30 Urine Ketones NEGATIVE mg/dL (NEGATIVE) 05/03/18 15:30 Urine Occult Blood LARGE (NEGATIVE) H 05/03/18 15:30 Urine Nitrite NEGATIVE (NEGATIVE) 05/03/18 15:30 Urine Bilirubin NEGATIVE (NEGATIVE) 05/03/18 15:30 Urine Urobilinogen 0.2 (NORMAL) E.U./dL (NORMAL) 05/03/18 15:30 Ur Leukocyte Esterase SMALL (NEGATIVE) H 05/03/18 15:30 Urine RBC TNTC /HPF (0-5) H 05/03/18 15:30 Urine WBC 6-10 /HPF (0-5) H 05/03/18 15:30 Ur Squamous Epith Cells NONE SEEN (<= Few) 05/03/18 15:30 Amorphous Sediment Marked /LPF 05/03/18 15:30 Urine Bacteria None Seen /HPF (None Seen) 05/03/18 15:30 Urine Culture Comments INDICATED 05/03/18 15:30 Last Dose Date 05/05/18 05/06/18 07:35 Last Dose Time 2120 05/06/18 07:35 Vancomycin Trough 17.5 ug/mL (10.0-20.0) 05/06/18 07:35 - Procedures Procedures: Procedures INSERTION OF INT FIX INTO L UP FEMUR, PERC APPROACH (04/24/18)
--- NOTE | 2018-05-06 16:53 | ADVANCE CARE PLANNING NOTE ---
Advance Care Planning - Date/Time Date: 05/06/18 Time: 13:30 - Purpose of encounter Text: To establish her wishes regarding aggressive ventilator management. To update the regarding the severity of her COPD. - Parties in attendance Parties in attendance: I spoke to the and eldest son, outside her room. - Decisional capacity Decisional capacity of: The patient has worsened and is hypoxic and is fatiguing and retaining CO2, therefore, currently she cannot make informed decisions. - Subjective/Patient's story Subjective/Patient's story: The patient and have been together 61 years and have a good marriage. 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 The recounts the entire history: she became very SOB with activities 5 years ago and that made her stop smoking. She was told she needs oxygen about a year ago, but is stubborn and only agreed to use it during sleep and only 1 mon ago. She only takes inhalers prn during the day and on schedule has one inhaler at . She needs to stop 1/[address] up the flight of stairs, on a landing to catch her breath, in their house, when going to the upstairs bedroom. When vacuuming, she can do 3 passes then stops to catch her breath. She is not followed by a Able Bodied Watchman. I told the and son, that these symptoms are seen when emphysema is severe, and with severe emphysema she has very little pulmonary reserve, to get over the infection and pulmonary fluid accumulation. She is now considered in critical condition. - Objective/Medical story Objective/Medical Story: She was admitted 2 weeks ago with a broken hip, which had successful surgery. Post-op, she developed rapid Afib, needed escalating B-garima doses and Dig loading, and was started on Eliquis. She had an episode of CP, troponins did increase and she was told to have outpatient W/U with a Bottle House Pumper, was started on sl NTG prn. She was DCh with antibiotics, for a newly diagnosed HCAP, and sent to [facility]. She was only there for 2 hours, had an episode of syncope when she was on the toilet. She was seen again in the emergency room, had evaluation but was sent back to [facility] for further PT. The son, who stated her bedside, said she was progressively short of breath all night. The next morning while starting with physical therapy, she had syncope again and an ambulance found her to Be desaturated, With oxygen saturations of 60%. She was again brought back to the ER, started on BiPAP but did not tolerate this and was intubated. The chest x-ray shows bilateral pleural effusions, mild volume overload and atypical bilateral pneumonia. She was on the ventilator for 2-1/2 days and was just extubated yesterday. Gentle hydration was used. This morning she is in marked respiratory distress, fatiguing, retaining CO2,Does not appear alert or oriented, and again desaturates. She has received IV morphine for dyspnea, IV Lasix x1 and nebulizer treatments and is being put back on a BiPAP. While she was still communicative, approximately 4 hours ago, she discussed the possibility of returning on a ventilator with her nurse, Jackie. The patient verbalized to Jackie that she did not want to go back on the ventilator, realizing that this could be life-saving. I recounted this entire conversation to the and eldest son. The stated that the patient has never discussed her wishes for end-of-life care or decisions about CPR but would want ventilator management if there is a chance of life saving treatment. - Goals of Care Goals of care determinations: She will be managed aggressively with respiratory toilet, nebulizers, IV steroids, BiPAP with supplemental oxygen and if needed, she will be reintubated and put on the ventilator, since she wants to survive, per the . - Plan Plan: As above. If she needs reintubation, I would advise that she be transferred for higher level of care to a hospital with Pulmonary specialists. The chose [facility], if that should need to be done. - Code Status Code Status: Attempt Resuscitation - Time Spent on Advance Care Planning Time spent on advance care plannin
[2018-05-06] MEDS ORDERED: SODIUM CHLORIDE INHALATION 3 ML NEB ONE (17:26)
[2018-05-06] MEDS: methylPREDNISolone SUCCINATE 125 MG/2 ML VIAL IVP SCH (21:45)
[2018-05-07] MEDS: LORazepam 2 MG/ML VIAL IVP PRN ×5 (01:48→20:16)
[2018-05-07] MEDS: SODIUM CHLORIDE FLUSH 0.9% 10 ML SYRINGE IVP PRN ×6 (01:48→19:54)
[2018-05-07] MEDS: MORPHINE 2 MG/ML CARPUJECT IVP PRN ×6 (03:03→23:36)
[2018-05-07] MEDS: LEVALBUTEROL 1.25 MG/3 ML NEB INH SCH ×5 (03:31→19:22)
[2018-05-07 05:48] LABS: BASOPHILS % (AUTO) 0.3 %; EOSINOPHILS % (AUTO) 0.1 %; HGB - HEMOGLOBIN 10.9 g/dL (12.0-16.0); LYMPHOCYTES # (AUTO) 0.3 10^3/uL (1.5-3.5); LYMPHOCYTES % (AUTO) 3.2 %; MEAN CORPUSCULAR HEMOGLOBIN 34.1 pg (27.0-31.0); MEAN CORPUSCULAR HGB CONC 33.2 g/dL (32.0-36.0); MEAN CORPUSCULAR VOLUME 102.6 fL (81.0-99.0); MEAN PLATELET VOLUME 6.8 fL (7.9-10.8); MONOCYTES # (AUTO) 0.4 10^3/uL (0.0-1.0); MONOCYTES % (AUTO) 4.2 %; NEUTROPHILS # (AUTO) 8.2 10^3/uL (1.5-6.6); NEUTROPHILS % (AUTO) 92.2 %; PLT - PLATELET COUNT 344 10^3/uL (130-450); RED BLOOD COUNT 3.21 10^6/uL (4.20-5.40); RED CELL DISTRIBUTION WIDTH 12.3 % (12.0-15.0); WHITE BLOOD COUNT 8.9 x10^3/uL (4.8-10.8)
[2018-05-07] MEDS: methylPREDNISolone SUCCINATE 125 MG/2 ML VIAL IVP SCH ×3 (05:54→22:02)
[2018-05-07 05:59] LABS: ALBUMIN/GLOBULIN RATIO 1.2 (1.0-2.2); BILIRUBIN,TOTAL 0.7 mg/dL (0.2-1.0); CALCIUM 8.5 mg/dL (8.5-10.3); CREATININE 0.4 mg/dL (0.4-1.0); TOTAL PROTEIN 5.6 g/dL (6.7-8.2)
[2018-05-07 06:01] LABS: DIGOXIN 0.4 ng/mL
[2018-05-07] MEDS: FUROSEMIDE 40 MG/4 ML VIAL IVP SCH (09:06)
[2018-05-07] MEDS: VANCOMYCIN INJ 1 GM in SODIUM CHLORIDE 0.9% 250 ML IV SCH ×2 (09:08→21:02)
[2018-05-07] MEDS: SODIUM CHLORIDE FLUSH 0.9% 10 ML SYRINGE IVP SCH ×3 (09:13→21:03)
[2018-05-07 09:29] LABS: ABG PH 7.32 (7.35-7.45)
[2018-05-07 09:30] LABS: ABG BASE EXCESS 11.8 mmol/L (-2.0-3.0); ABG HCO3 41.2 mmol/L (22.0-26.0); ABG OXYGEN SATURATION 97 % (94-98); ABG PO2 96 mmHg (80-100); ALLEN TEST POSITIVE
[2018-05-07 09:33] LABS: ABG PCO2 83 mmHg (34-45); ABG TCO2 43.7 MMOL/L (21.0-29.0)
[2018-05-07] MEDS ORDERED: DEXTROSE 5% 1,000 ML IV SCH (11:00)
[2018-05-07] MEDS: METOPROLOL 5 MG/5 ML VIAL IVP SCH ×3 (11:13→22:55)
[2018-05-07] MEDS: DIGOXIN 500 MCG/2 ML AMP IVP SCH (11:19)
[2018-05-07] MEDS: CEFEPIME 2 GM in SODIUM CHLORIDE 0.9% MINIBAG 100 ML IV SCH ×2 (11:30→22:55)
--- NOTE | 2018-05-07 12:08 | XRAY Report ---
Reason: CHF vs atypical pneumonia Procedure Date: 05/07/2018 Accession Number: [id number] / [id number] Procedure: XR - Chest 1 View X-Ray CPT Code: 67955 FULL RESULT: EXAM: CHEST RADIOGRAPHY EXAM DATE: 05/07/2018 09:35 AM. CLINICAL HISTORY: CHF vs atypical pneumonia. COMPARISON: CHEST 1 VIEW 05/06/2018 9:45 AM. TECHNIQUE: 1 view. FINDINGS: Lungs/Pleura: Decreased mild bibasal opacity may reflect small effusions and atelectasis and/or infiltrate. Coarse interstitial markings at the upper lung zones. No focal pulmonary consolidation. No pneumothorax. Mediastinum: Within exam limitations, the cardiomediastinal contour is normal. Other: None. IMPRESSION: Decreased mild bibasal opacity may reflect small effusions and atelectasis and/or infiltrate. RADIA
[2018-05-07 12:42] LABS: ABG PH 7.41 (7.35-7.45)
[2018-05-07 12:43] LABS: ABG BASE EXCESS 14.7 mmol/L (-2.0-3.0); ABG HCO3 42.3 mmol/L (22.0-26.0); ABG OXYGEN SATURATION 97 % (94-98); ABG PO2 87 mmHg (80-100)
[2018-05-07 12:44] LABS: ALLEN TEST POSITIVE
[2018-05-07 12:48] LABS: ABG PCO2 69 mmHg (34-45); ABG TCO2 44.4 MMOL/L (21.0-29.0)
[2018-05-07] MEDS: CHLORHEXIDINE GLUCONATE 15 ML UDC PO SCH ×2 (15:36→21:02)
--- NOTE | 2018-05-07 18:54 | PROVIDER PROGRESS NOTE ---
Assessment/Plan - Problem List (1) Respiratory failure Qualifiers: Chronicity: acute on chronic Respiratory failure complication: hypoxia and hypercapnia Assessment/Plan: She has very little reserve: when BIPAP is off for sips of fluids, she desats a nd resp rate clombs to 30-40. I offered to reach out to hospitals with higher level of care and Pulmonary Specialists: there were no ICU beds at [facility] or [facility]. Continue present plan: iv steroids, nebs on schedule, iv antibiotics, iv diuretic, daily CXR, monitor BNP, Richey for I's and O's. Will try to give Mucinex. Will try to give po diet: Ensure and clear liquids. Peripheral iv is D5, for some calories. She is on GI prophylaxis with Protonix iv to protect from an ulcer. She is in critical condition. The and 2 sons at the bedside were updated. (2) COPD exacerbation Assessment/Plan: As above. Her COPD is severe. (3) Atypical pneumonia Assessment/Plan: On iv antibiotics, no sputum ws collected for a culture. Blood cultures are neg. Will broaden iv antibiotics with the addition of Pip/Tazo. (4) Pleural effusion Assessment/Plan: This is resolving by CXR. Continue Lasix iv, follow I's and O's. (5) Status post hip surgery Assessment/Plan: Plan for SNF rehab after [facility]. - Current Meds Current Meds: Current Medications Generic Name Dose Route Start Last Admin Trade Name Freq PRN Reason Stop Dose Admin Chlorhexidine Gluconate 15 ml 05/04/18 13:00 05/07/18 15:36 Peridex PO Not Given BID MANUEL Digoxin 125 mcg 05/07/18 10:25 05/07/18 11:19 Lanoxin Inj IVP 125 mcg DAILY MANUEL Administration Furosemide 40 mg 05/07/18 09:00 05/07/18 09:06 Lasix Inj 40 Mg Vial IVP 40 mg DAILY MANUEL Administration Vancomycin HCl 1 gm/ Sodium 250 mls @ 167 mls/hr 05/03/18 20:00 05/07/18 10:30 Chloride IV Infused Q12H MANUEL Infusion Cefepime HCl 2 gm/ Sodium 100 mls @ 200 mls/hr 05/04/18 11:00 05/07/18 12:00 Chloride IV Infused 1100,2300 MANUEL Infusion Dextrose 1,000 mls @ 0 mls/hr 05/07/18 11:00 05/07/18 18:00 D5w IV 20 mls/hr .Q0M MANUEL Infusion TKO Levalbuterol HCl 1.25 mg 05/06/18 11:00 05/07/18 15:31 Xopenex INH 1.25 mg Q4H MANUEL Administration Lorazepam 1 mg 05/05/18 02:28 05/07/18 18:20 Ativan Inj (Vial) IVP 1 mg Q1H PRN Administration Moderate Anxiety Methylprednisolone Sodium Succinate 125 mg 05/06/18 22:00 05/07/18 14:44 Solu-Medrol (125mg Vial) IVP 125 mg TID MANUEL Administration Metoprolol Tartrate 2.5 mg 05/07/18 11:00 05/07/18 16:29 Lopressor Inj IVP 2.5 mg Q6H MANUEL Administration Morphine Sulfate 2 mg 05/06/18 10:07 05/07/18 16:26 Morphine (Carpuject) IVP 2 mg Q2HR PRN Administration Dyspnea Sodium Chloride 10 ml 05/03/18 17:00 05/07/18 16:31 Normal Saline Flush 0.9% IVP 20 ml 0100,0900,1700 MANUEL Administration Sodium Chloride 10 ml 05/03/18 13:00 05/07/18 14:50 Normal Saline Flush 0.9% IVP 10 ml PRN PRN Administration NEEDED PER PROVIDER ORDERS Throat Lozenges 1 lozenge 05/05/18 19:31 05/05/18 20:02 Cepacol MM 1 lozenge Q2HR PRN Administration Throat pain - Lab Result Fish Bone Diagrams: 05/07/18 04:54 05/07/18 04:54 - Additional Planning My Orders: My Active Orders 05/06/18 22:00 methylPREDNISolone SUCCINATE [SOLU-Medrol (125MG VIAL)] 125 mg IVP TID 05/07/18 09:00 FUROSEMIDE INJ 40mg VIAL [LASIX INJ 40 mg VIAL] 40 mg IVP DAILY 05/07/18 09:11 ABG [Arterial Blood Gases - RT] [RC] .ONCE 05/07/18 10:25 Digoxin Inj [Lanoxin Inj] 125 mcg IVP DAILY 05/07/18 10:33 Arterial Blood Gases - RT [RC] .ONCE 05/07/18 11:00 Dextrose 5% [D5w] 1,000 ml IV TKO Metoprolol Inj [Lopressor Inj] 2.5 mg IVP Q6H 05/07/18 18:51 ABG [Arterial Blood Gases - RT] [RC] .ONCE 05/07/18 20:00 Enoxaparin [Lovenox] 60 mg SUBQ BID 05/08/18 05:00 BMP - BASIC METABOLIC PANEL [CHEM] DAILYLAB BNP - B-NATRIURETIC PEPTIDE [IAI] DAILYLAB CBC - COMP BLD CT W/AUTO DIFF [HEME] DAILYLAB DIGOXIN [CHEM] DAILYLAB MAGNESIUM [CHEM] DAILYLAB 05/08/18 08:00 ABG - ARTERIAL BLOOD GAS [BG] Timed 05/08/18 09:00 Chest 1 View X-Ray [XR] DAILY 05/09/18 05:00 BMP - BASIC METABOLIC PANEL [CHEM] DAILYLAB CBC - COMP BLD CT W/AUTO DIFF [HEME] DAILYLAB DIGOXIN [CHEM] DAILYLAB MAGNESIUM [CHEM] DAILYLAB 05/10/18 05:00 BMP - BASIC METABOLIC PANEL [CHEM] DAILYLAB CBC - COMP BLD CT W/AUTO DIFF [HEME] DAILYLAB MAGNESIUM [CHEM] DAILYLAB 05/11/18 05:00 BMP - BASIC METABOLIC PANEL [CHEM] DAILYLAB CBC - COMP BLD CT W/AUTO DIFF [HEME] DAILYLAB MAGNESIUM [CHEM] DAILYLAB Subjective - Subjective Patient Reports: Feeling Better, Shortness of Breath, Other (She tells me she was able to sleep a bit over night.) Nursing Reports: Other (This am she awoke, got anxious, started taking her mask down over her mouth, destaurated, needed Morphine and Ativan and iv Lasix to feel more comfortable.) Objective Vital Signs: Vital Signs - 24 hr 05/06/18 05/06/18 05/06/18 19:00 19:31 20:00 Temperature Heart Rate 101 H Heart Rate [ 89 101 H Monitoring electrodes] Respiratory 29 H 28 H 23 Rate Blood Pressure Blood Pressure 162/75 H 174/88 H [Right Brachial artery] O2 Saturation 97 95 05/06/18 05/06/18 05/06/18 21:00 21:33 22:00 Temperature 37.0 C Heart Rate 97 Heart Rate [ 102 H 94 Monitoring electrodes] Respiratory 25 H 23 Rate Blood Pressure Blood Pressure 147/74 H 133/82 H [Right Brachial artery] O2 Saturation 99 99 05/06/18 05/06/18 05/07/18 23:00 23:36 00:00 Temperature 36.2 C L Heart Rate 88 Heart Rate [ 85 87 Monitoring electrodes] Respiratory 27 H 27 H Rate Blood Pressure Blood Pressure 148/77 H 144/75 H [Right Brachial artery] O2 Saturation 99 97 05/07/18 05/07/18 05/07/18 01:00 01:37 02:00 Temperature Heart Rate 85 Heart Rate [ 91 92 Monitoring electrodes] Respiratory 26 H 28 H Rate Blood Pressure Blood Pressure 149/76 H 156/78 H [Right Brachial artery] O2 Saturation 88 L 97 05/07/18 05/07/18 05/07/18 03:00 03:29 03:55 Temperature Heart Rate 100 111 H Heart Rate [ 92 Monitoring electrodes] Respiratory 30 H 22 Rate Blood Pressure Blood Pressure 159/80 H [Right Brachial artery] O2 Saturation 96 05/07/18 05/07/18 05/07/18 04:00 05:00 05:04 Temperature 36.5 C Heart Rate 95 Heart Rate [ 103 H 94 Monitoring electrodes] Respiratory 28 H 29 H Rate Blood Pressure Blood Pressure 159/73 H 130/70 [Right Brachial artery] O2 Saturation 97 97 05/07/18 05/07/18 05/07/18 06:00 07:00 07:19 Temperature Heart Rate 91 Heart Rate [ 93 99 Monitoring electrodes] Respiratory 26 H 30 H 28 H Rate Blood Pressure Blood Pressure 131/82 H 140/74 H [Right Brachial artery] O2 Saturation 96 97 05/07/18 05/07/18 05/07/18 08:00 09:00 09:08 Temperature 37.4 C Heart Rate 107 H Heart Rate [ 88 102 H Monitoring electrodes] Respiratory 30 H 30 H Rate Blood Pressure Blood Pressure 138/72 H 137/74 H [Right Brachial artery] O2 Saturation 96 99 05/07/18 05/07/18 05/07/18 10:00 11:00 11:13 Temperature Heart Rate 90 Heart Rate [ 99 Monitoring electrodes] Respiratory 26 H Rate Blood Pressure 162/86 H Blood Pressure 162/85 H [Right Brachial artery] O2 Saturation 98 05/07/18 05/07/18 05/07/18 11:18 11:19 11:23 Temperature Heart Rate 91 Heart Rate [ 90 94 Monitoring electrodes] Respiratory 25 H 21 Rate Blood Pressure Blood Pressure 170/85 H 163/86 H [Right Brachial artery] O2 Saturation 100 99 05/07/18 05/07/18 05/07/18 11:27 11:43 12:00 Temperature 37.7 C H Heart Rate 91 Heart Rate [ 90 94 Monitoring electrodes] Respiratory 21 19 20 Rate Blood Pressure Blood Pressure 160/73 H 166/78 H [Right Brachial artery] O2 Saturation 99 100 05/07/18 05/07/18 05/07/18 12:15 12:30 13:00 Temperature Heart Rate Heart Rate [ 96 90 100 Monitoring electrodes] Respiratory 26 H Rate Blood Pressure Blood Pressure 165/72 H 170/81 H 169/76 H [Right Brachial artery] O2 Saturation 96 05/07/18 05/07/18 05/07/18 14:00 14:30 15:00 Temperature Heart Rate 102 H Heart Rate [ 100 91 Monitoring electrodes] Respiratory 28 H 23 Rate Blood Pressure Blood Pressure 158/76 H 130/73 [Right Brachial artery] O2 Saturation 99 97 05/07/18 05/07/18 05/07/18 15:31 16:00 16:18 Temperature 37.8 C H Heart Rate 102 H 115 H Heart Rate [ 97 Monitoring electrodes] Respiratory 29 H 22 Rate Blood Pressure Blood Pressure 149/61 H [Right Brachial artery] O2 Saturation 97 05/07/18 05/07/18 05/07/18 16:29 17:00 18:00 Temperature Heart Rate Heart Rate [ 96 93 Monitoring electrodes] Respiratory 21 18 Rate Blood Pressure 149/61 H Blood Pressure 116/58 L 141/71 H [Right Brachial artery] O2 Saturation 98 96 05/07/18 18:04 Temperature Heart Rate 97 Heart Rate [ Monitoring electrodes] Respiratory Rate Blood Pressure Blood Pressure [Right Brachial artery] O2 Saturation Oxygen O2 Source BIPAP Oxygen Flow Rate 5 I&O (Last 24 Hrs): Intake and Output Totals x24h 05/05/18 05/06/18 05/07/18 23:59 23:59 23:59 Intake Total 5233.142 2584.167 879.333 Output Total 1645 4095 2025 Balance 3588.142 -1510.833 -1145.667 General: Other (Obtunded when fatigued due to work of breathing in am, alert and smiling, wearing BIPAP mask.) HEENT: Mucous membr. moist/pink Neck: Supple Neuro: Non Focal Cardiovascular: Regular rate, No murmurs Respiratory: Breath sounds nml, Other (Tight, no wheezing or rales.) Abdomen: Soft Extremities: No edema - Results Results: Laboratory Results WBC 8.9 x10^3/uL (4.8-10.8) 05/07/18 04:54 RBC 3.21 10^6/uL (4.20-5.40) L 05/07/18 04:54 Hgb 10.9 g/dL (12.0-16.0) L 05/07/18 04:54 Hct 32.9 % (37.0-47.0) L 05/07/18 04:54 MCV 102.6 fL (81.0-99.0) H 05/07/18 04:54 MCH 34.1 pg (27.0-31.0) H 05/07/18 04:54 MCHC 33.2 g/dL (32.0-36.0) 05/07/18 04:54 RDW 12.3 % (12.0-15.0) 05/07/18 04:54 Plt Count 344 10^3/uL (130-450) 05/07/18 04:54 MPV 6.8 fL (7.9-10.8) L 05/07/18 04:54 Neut # (Auto) 8.2 10^3/uL (1.5-6.6) H 05/07/18 04:54 Lymph # (Auto) 0.3 10^3/uL (1.5-3.5) L 05/07/18 04:54 [facility] # (Auto) 0.4 10^3/uL (0.0-1.0) 05/07/18 04:54 Eos # (Auto) 0.0 10^3/uL (0.0-0.7) 05/07/18 04:54 Baso # (Auto) 0.0 10^3/uL (0.0-0.1) 05/07/18 04:54 Absolute Nucleated RBC 0.00 x10^3/uL 05/07/18 04:54 Nucleated RBC % 0.0 /100WBC 05/07/18 04:54 Manual Slide Review Indicated 05/03/18 11:18 WBC Morphology NORMAL APPEARANCE (NORMAL) 05/03/18 11:18 Platelet Estimate NORMAL (130-450,000) (NORMAL) 05/03/18 11:18 Platelet Morphology NORMAL APPEARANCE (NORMAL) 05/03/18 11:18 RBC Morph Micro Appear NORMAL APPEARANCE (NORMAL) 05/03/18 11:18 Bld Gas Analysis Time 1239 05/07/18 12:35 Sample Site LEFT BRACHIAL 05/07/18 12:35 ABG pH 7.41 (7.35-7.45) 05/07/18 12:35 ABG pCO2 69 mmHg (34-45) H* 05/07/18 12:35 ABG pO2 87 mmHg (80-100) 05/07/18 12:35 ABG HCO3 42.3 mmol/L (22.0-26.0) H 05/07/18 12:35 ABG Total CO2 44.4 MMOL/L (21.0-29.0) H* 05/07/18 12:35 ABG O2 Saturation 97 % (94-98) 05/07/18 12:35 ABG Oximetry Spot Check 100 % 05/07/18 09:22 ABG Base Excess 14.7 mmol/L (-2.0-3.0) H 05/07/18 12:35 Loki Test POSITIVE 05/07/18 12:35 Respiration Rate 20 b/min 05/07/18 12:35 O2 Delivery Device BiPAP 05/07/18 12:35 O2 Liters/Min 35.00 LPM 05/06/18 11:05 Vent Mode NPBV 05/06/18 12:10 FiO2 40.00 05/07/18 12:35 Tidal Volume 425 mL 05/05/18 05:10 PEEP 5 cmH2O 05/05/18 05:10 Pressure Support Vent 7 cmH2O 05/05/18 05:10 EPAP 5 cmH2O 05/07/18 12:35 IPAP 14 cmH2O 05/07/18 12:35 Sodium 141 mmol/L (135-145) 05/07/18 04:54 Potassium 3.7 mmol/L (3.5-5.0) 05/07/18 04:54 Chloride 98 mmol/L (101-111) L 05/07/18 04:54 Carbon Dioxide 38 mmol/L (21-32) H 05/07/18 04:54 Anion Gap 5.0 (6-13) L 05/07/18 04:54 BUN 26 mg/dL (6-20) H 05/07/18 04:54 Creatinine 0.4 mg/dL (0.4-1.0) 05/07/18 04:54 Estimated GFR (MDRD) 154 (>89) 05/07/18 04:54 Glucose 138 mg/dL (70-100) H 05/07/18 04:54 Lactic Acid 1.2 mmol/L (0.5-2.2) 05/03/18 11:18 Calcium 8.5 mg/dL (8.5-10.3) 05/07/18 04:54 Phosphorus 2.6 mg/dL (2.5-4.6) 05/05/18 04:15 Magnesium 1.9 mg/dL (1.7-2.8) 05/05/18 04:15 Total Bilirubin 0.7 mg/dL (0.2-1.0) 05/07/18 04:54 AST 47 IU/L (10-42) H 05/07/18 04:54 ALT 68 IU/L (10-60) H 05/07/18 04:54 Alkaline Phosphatase 72 IU/L (42-121) 05/07/18 04:54 Troponin I < 0.04 ng/mL (<0.49) 05/04/18 04:25 B-Natriuretic Peptide 827 pg/mL (5-100) H 05/07/18 04:54 Total Protein 5.6 g/dL (6.7-8.2) L 05/07/18 04:54 Albumin 3.0 g/dL (3.2-5.5) L 05/07/18 04:54 Globulin 2.6 g/dL (2.1-4.2) 05/07/18 04:54 Albumin/Globulin Ratio 1.2 (1.0-2.2) 05/07/18 04:54 Urine Color YELLOW 05/03/18 15:30 Urine Clarity CLOUDY (CLEAR) 05/03/18 15:30 Urine pH 5.5 PH (5.0-7.5) 05/03/18 15:30 Ur Specific [place] 1.025 (1.002-1.030) 05/03/18 15:30 Urine Protein 30 mg/dL (NEGATIVE) H 05/03/18 15:30 Urine Glucose (UA) NEGATIVE mg/dL (NEGATIVE) 05/03/18 15:30 Urine Ketones NEGATIVE mg/dL (NEGATIVE) 05/03/18 15:30 Urine Occult Blood LARGE (NEGATIVE) H 05/03/18 15:30 Urine Nitrite NEGATIVE (NEGATIVE) 05/03/18 15:30 Urine Bilirubin NEGATIVE (NEGATIVE) 05/03/18 15:30 Urine Urobilinogen 0.2 (NORMAL) E.U./dL (NORMAL) 05/03/18 15:30 Ur Leukocyte Esterase SMALL (NEGATIVE) H 05/03/18 15:30 Urine RBC TNTC /HPF (0-5) H 05/03/18 15:30 Urine WBC 6-10 /HPF (0-5) H 05/03/18 15:30 Ur Squamous Epith Cells NONE SEEN (<= Few) 05/03/18 15:30 Amorphous Sediment Marked /LPF 05/03/18 15:30 Urine Bacteria None Seen /HPF (None Seen) 05/03/18 15:30 Urine Culture Comments INDICATED 05/03/18 15:30 Last Dose Date 05/06/18 05/07/18 04:54 Last Dose Time 0900 05/07/18 04:54 Vancomycin Trough 17.5 ug/mL (10.0-20.0) 05/06/18 07:35 Digoxin 0.4 ng/mL 05/07/18 04:54 - Procedures Procedures: Procedures INSERTION OF INT FIX INTO L UP FEMUR, PERC APPROACH (04/24/18)
[2018-05-07] MEDS ORDERED: PIPERACILLIN/TAZOBACTAM 3.375 GM in SODIUM CHLORIDE 0.9% MINIBAG 100 ML IV SCH ×4 (20:00)
[2018-05-07] MEDS: ENOXAPARIN 60 MG/0.6 ML SYRINGE SUBQ SCH (20:33)
[2018-05-07] MEDS: PANTOPRAZOLE 40 MG VIAL IV SCH (21:03)
[2018-05-07] MEDS: PIPERACILLIN/TAZOBACTAM 3.375 GM in SODIUM CHLORIDE 0.9% MINIBAG 100 ML IV SCH (23:36)
[2018-05-08] MEDS: LORazepam 2 MG/ML VIAL IVP PRN ×4 (00:41→16:27)
[2018-05-08] MEDS: LEVALBUTEROL 1.25 MG/3 ML NEB INH SCH ×5 (01:40→18:24)
[2018-05-08] MEDS: METOPROLOL 5 MG/5 ML VIAL IVP SCH ×3 (04:45→16:33)
[2018-05-08] MEDS: SODIUM CHLORIDE FLUSH 0.9% 10 ML SYRINGE IVP PRN ×3 (04:46→14:19)
[2018-05-08] MEDS: MORPHINE 2 MG/ML CARPUJECT IVP PRN ×4 (05:23→16:03)
[2018-05-08 05:25] LABS: BASOPHILS % (AUTO) 0.4 %; HGB - HEMOGLOBIN 10.3 g/dL (12.0-16.0); LYMPHOCYTES # (AUTO) 0.4 10^3/uL (1.5-3.5); LYMPHOCYTES % (AUTO) 3.9 %; MEAN CORPUSCULAR HEMOGLOBIN 33.6 pg (27.0-31.0); MEAN CORPUSCULAR HGB CONC 32.8 g/dL (32.0-36.0); MEAN CORPUSCULAR VOLUME 102.3 fL (81.0-99.0); MEAN PLATELET VOLUME 6.9 fL (7.9-10.8); MONOCYTES # (AUTO) 0.3 10^3/uL (0.0-1.0); MONOCYTES % (AUTO) 3.3 %; NEUTROPHILS # (AUTO) 8.4 10^3/uL (1.5-6.6); NEUTROPHILS % (AUTO) 92.4 %; PLT - PLATELET COUNT 316 10^3/uL (130-450); RED BLOOD COUNT 3.07 10^6/uL (4.20-5.40); RED CELL DISTRIBUTION WIDTH 12.1 % (12.0-15.0); WHITE BLOOD COUNT 9.1 x10^3/uL (4.8-10.8)
[2018-05-08] MEDS: methylPREDNISolone SUCCINATE 125 MG/2 ML VIAL IVP SCH ×2 (05:57→14:20)
[2018-05-08 06:18] LABS: BUN - BLOOD UREA NITROGEN 32 mg/dL (6-20); CALCIUM 8.6 mg/dL (8.5-10.3); CHLORIDE 94 mmol/L (101-111); CREATININE 0.3 mg/dL (0.4-1.0); DIGOXIN 0.5 ng/mL; GFR - MDRD 214 (>89); GLUCOSE 162 mg/dL (70-100); MAGNESIUM 2.1 mg/dL (1.7-2.8); SODIUM 140 mmol/L (135-145)
[2018-05-08 06:35] LABS: CARBON DIOXIDE - CO2 42 mmol/L (21-32)
[2018-05-08] MEDS: PIPERACILLIN/TAZOBACTAM 3.375 GM in SODIUM CHLORIDE 0.9% MINIBAG 100 ML IV SCH ×3 (07:57→14:50)
[2018-05-08] MEDS: SODIUM CHLORIDE FLUSH 0.9% 10 ML SYRINGE IVP SCH ×2 (09:00→17:00)
[2018-05-08] MEDS: DIGOXIN 500 MCG/2 ML AMP IVP SCH (09:15)
--- NOTE | 2018-05-08 09:28 | XRAY Report ---
Reason: CHF vs atypical pneumonia Procedure Date: 05/08/2018 Accession Number: [id number] / [id number] Procedure: XR - Chest 1 View X-Ray CPT Code: 47238 FULL RESULT: EXAM: CHEST RADIOGRAPHY EXAM DATE: 05/08/2018 09:05 AM. CLINICAL HISTORY: CHF vs atypical pneumonia. COMPARISON: Chest radiograph 05/07/2018. TECHNIQUE: 1 view. FINDINGS: Lungs/Pleura: Increased lung markings. Heterogeneous left lung base opacity. Blunting left costophrenic angle. Suspect skin fold over the left chest. Mediastinum: Stable Other: None. IMPRESSION: 1. Airways disease 2. Increasing left lung base opacity. Infectious etiology suspected. 3. Increasing small left pleural effusion RADIA
[2018-05-08 09:39] LABS: VBG BASE EXCESS 15.1 mmol/L (-2 - +2); VBG PCO2 70.5 mmHg (41-51); VBG PH 7.403 (7.31-7.41); VBG PO2 61.3 mmHg (25-47); VBG TOTAL CO2 45.2 mmol/L (24-29)
[2018-05-08] MEDS: PANTOPRAZOLE 40 MG VIAL IV SCH (09:43)
[2018-05-08] MEDS: ENOXAPARIN 60 MG/0.6 ML SYRINGE SUBQ SCH (10:09)
[2018-05-08] MEDS: FUROSEMIDE 40 MG/4 ML VIAL IVP SCH (10:10)
[2018-05-08] MEDS: CHLORHEXIDINE GLUCONATE 15 ML UDC PO SCH (10:11)
[2018-05-08] MEDS ORDERED: SODIUM CHLORIDE FLUSH 0.9% 10 ML SYRINGE ONE (10:18)
[2018-05-08] MEDS: VANCOMYCIN INJ 1 GM in SODIUM CHLORIDE 0.9% 250 ML IV SCH (13:24)
--- NOTE | 2018-05-08 13:25 | XRAY Report ---
Reason: New PICC line Procedure Date: 05/08/2018 Accession Number: [id number] / [id number] Procedure: XR - Chest for Line Placement CPT Code: FULL RESULT: EXAM: CHEST RADIOGRAPHY EXAM DATE: 05/08/2018 01:04 PM. CLINICAL HISTORY: New PICC line. COMPARISON: CHEST 1 VIEW 05/08/2018 8:51 AM. TECHNIQUE: 1 view. FINDINGS: Cardiac leads overlie the chest. There is a new right arm PICC terminating at the superior cavoatrial junction. Heart size is unchanged. Calcified plaques in the thoracic aorta. Small left pleural effusion with adjacent patchy and hazy opacities, likely atelectasis. The right lung is clear. No pneumothorax visualized. Mildly increased pulmonary vascular markings. IMPRESSION: Right arm PICC terminating at the superior cavoatrial junction. RADIA
[2018-05-08] MEDS: CEFEPIME 2 GM in SODIUM CHLORIDE 0.9% MINIBAG 100 ML IV SCH (13:26)
[2018-05-08 18:06] VITALS: BP 179/90
--- NOTE | 2018-05-11 19:57 | DISCHARGE SUMMARY ---
Physician: Roxann Barragan MD DATE OF ADMISSION: 05/03/2018 DATE OF DISCHARGE: 05/08/2018 HISTORY OF PRESENT ILLNESS: This is an 78-year-old white female with a history of COPD, ex-smoker, with paroxysmal Afib, admitted here recently from 04/24/2018 to 05/02/2018 after a fall at home and a hip fracture, had successful hip surgery, then postop complications of rapid Afib, which required escalating beta garima doses, postop UTI and pneumonia and COPD exacerbation. She was discharged to [facility] for PT rehab. She was only there approximately 2 hours and had an episode of syncope, was brought back to the emergency room, the UTI was noted and she was transported back to [facility]. The following morning during starting physical therapy, she had another episode of syncope and an ambulance was called. EMT found her to have oxygen saturations of 60% on room air and she was again brought to the emergency room, started on BiPAP, but did not tolerate this and was intubated. The patient was admitted to the ICU for management on the ventilator. HOSPITAL COURSE AND DISCHARGE DIAGNOSES 1. Respiratory failure. The patient required sedation with Versed and Propofol and was on the ventilator for 2-1/2 days. She was extubated, but the following day had respiratory distress again with CO2 retention, hypoxia, confusion and was placed on BiPAP which she did now tolerate. Her confusion; however, was accompanied with trying to take off her BiPAP mask. She required very gentle sedation with Ativan and use of Morphine for dyspnea and discomfort as well. She would only tolerate being off of the BiPAP for 5 minutes at a time and then would desaturate. She had a PICC line placed in planning to start TPN. However, because of minimal improvement in her respiratory status, I reached out to hospitals with higher level of care and she was accepted very kindly by an Fairing Worker (Dr. Marshall), and was transferred by air to the [facility] ICU for Fairing Worker and Pulmonary specialists' management. She was transferred by helicopter on 05/08/2018. 2. Chronic obstructive pulmonary disease exacerbation. The patient's dyspnea had started in the postop period of the fractured hip admission and continued here. She had severe wheezing, minimal air movement despite IV steroids, nebulizers q.4 h., and treatment of an underlying pneumonia. The was able to provide the back history, that the patient had stopped smoking 5 years previously because of shortness of breath when climbing stairs. She was told to use oxygen 1 year ago, but never started this until 1 month ago and then, only at bedtime. She was also using only 1 (scheduled) inhaler. This history is consistent with severe emphysema and she probably has very little pulmonary reserve to get over the infection and pulmonary fluid accumulation. 3. Atypical pneumonia (HCAP). During the hospitalization with hip surgery, she developed bilateral pneumonia and had been sent to the SNF on Augmentin. Her infiltrates were bilateral while here and she was on empiric IV antibiotics, starting with coverage for hospital-acquired pneumonia using IV Cefepime and Vancomycin, and then the antibiotics were broadened with the addition of Pip/Tazo, when she had minimal improvement on chest x-ray. The transfer to [facility] was also for infectious disease help. 4. Pleural effusion. The patient developed bilateral pleural effusions and required IV diuretics given intermittently. An Echo had been done on the previous recent admission that showed a normal LVEF. 5. Status post hip surgery. That had been a successful surgery. In that postop setting, she did develop Afib with RVR, there was an increase in troponins with one episode of chest pain. She was managed with rate control, sublingual nitro p.r.n., and recommendations had been for outpatient Cardiology management. Alos, the patient has not yet finished a course of physical therapy following the hip surgery after the fracture. 6. Paroxysmal atrial fibrillation. While here, the patient had various rhythms including Afib with RVR, atrial flutter with 2:1 and 3:1 block, and rare sinus rhythm. Her rapid heart rates were managed with IV and p.o. digoxin and beta blockers. When she was intubated and also when her respiratory status worsened and she was unable to take p.o. medication, she required Eliquis being changed to Lovenox at therapeutic doses. LABS AND IMAGING: reviewed and summarized above. ALLERGIES: DILTIAZEM, WHICH CAUSES A RASH. DISCHARGE MEDICATIONS At the time of discharge 1. Xopenex nebulizer every 4 hours scheduled. 2. Peridex p.r.n. 3. Lasix 40 mg IV b.i.d. 4. Cefepime IV. 5. Vancomycin IV. 6. Pip-Tazo IV. 7. Lovenox 60 mg b.i.d. 8. SOLU-Medrol 125 mg t.i.d. 9. Ativan p.r.n. 11. Morphine sulfate IV p.r.n. 12. Metoprolol 5 mg IV q.6 h. 13. Digoxin 0.125 mg IV daily. 14. D5W at TKO. 15. Protonix 40 mg IV b.i.d. CONDITION AT DISCHARGE: Poor. PHYSICAL EXAMINATION VITAL SIGNS: Blood pressure 170/90, heart rate 104 in atrial flutter with 3:1 block, afebrile, respiratory rate 28, her oxygen saturation was 95%, on 40% FIO2 on BiPAP HEENT: Revealed lethargy, mouth breathing, wearing a BiPAP machine. NECK: Positive JVD. CHEST: Increased AP diameter, poor air movement. No wheezes or rales. HEART: Heart sounds distant, tachycardic. ABDOMEN: Soft, nontender. EXTREMITIES: No edema. NEUROLOGIC: Non-focal and she was intermittently confused, especially when hypoxic or hypercapnic. FOLLOWUP: This would be determined after her hospitalization at [facility]. CODE STATUS: FULL CODE. TIME REQUIRED TO COMPLETE THIS ENTIRE DISCHARGE, CHART REVIEW, ACCEPTANCE FOR TRANSFER TO A HIGHER LEVEL OF CARE CENTER, DICTATION: 65 minutes. cc: Duy Jain MD TD: 05/11/2018 14:34 MTDD
== END 2018-05-08 19:04 | disposition short-term general hospital (02) | DRG 208 ==
LOC: ED 11:10 → ICU 13:00 → UNDOADMIN 13:00
PROVIDERS: ADMIT Internal Medicine; ATTEND Internal Medicine
PROC: 5A1945Z Respiratory Ventilation, 24-96 Consecutive Hours (ICD-10-PCS; principal; 2018-05-03)
PROC: 02HV33Z Insertion of Infusion Device into Superior Vena Cava, Percutaneous Approach (ICD-10-PCS; 2018-05-08)
DX: J96.01 Acute respiratory failure with hypoxia (principal); J96.21 Acute and chronic respiratory failure with hypoxia; J18.9 Pneumonia, unspecified organism; R46.4 Slowness and poor responsiveness; R41.0 Disorientation, unspecified; R82.90 Unspecified abnormal findings in urine; R94.31 Abnormal electrocardiogram [ECG] [EKG]; I10 Essential (primary) hypertension; N39.0 Urinary tract infection, site not specified; J90 Pleural effusion, not elsewhere classified; I48.92 Unspecified atrial flutter; E87.3 Alkalosis; J96.22 Acute and chronic respiratory failure with hypercapnia; Z87.01 Personal history of pneumonia (recurrent); Z98.890 Other specified postprocedural states; R55 Syncope and collapse; I48.0 Paroxysmal atrial fibrillation; I48.2 Chronic atrial fibrillation; J43.9 Emphysema, unspecified; S72.009D Fracture of unspecified part of neck of unspecified femur, subsequent encounter for closed fracture with routine healing; K76.1 Chronic passive congestion of liver; Y95 Nosocomial condition; Z79.01 Long term (current) use of anticoagulants; Z99.81 Dependence on supplemental oxygen; Z87.891 Personal history of nicotine dependence; Z78.1 Physical restraint status; Z79.899 Other long term (current) drug therapy; Z79.51 Long term (current) use of inhaled steroids
CPT/HCPCS: 31500; 36415; 36600; 43752; 51702; 70450; 71045; 80048; 80053; 80162; 80202; 81001; 82803; 83605; 83735; 83880; 84100; 84484; 85025; 87040; 87086; 87150; 93005; 93306; 94002; 94003; 94640; 94660; 94770; 96374; 96375; 99285; 99291